=== PATIENT | female | born 1980 | race Caucasian/White ===

== ENCOUNTER → 2016-05-21 | Outpatient (CLI) | payer MEDICARE, MEDICAID ==
[~2016-05-21] MED LIST: AZIT250T5 PO; CODE118S2 PO; NAPR500T3 PO; OXCA300T; RANI150T11
--- NOTE | 2016-05-21 20:18 | Diagnostic Imaging Report ---
Bilateral diagnostic mammogram. The current study was also evaluated with a Computer Aided Detection (CAD) system. INDICATION: Lump in the upper aspect of the right breast near the axilla. COMPARISON: No prior studies are available for comparison. FINDINGS: The breasts are composed of heterogeneously dense parenchyma which may decrease mammographic sensitivity. There are no definite masses, architectural distortion, or suspicious cluster of calcifications. IMPRESSION: Dense breasts with no definite focal mass. Ultrasound evaluation pending. ACR BI-RADS Category 0: Incomplete. (Needs additional imaging evaluation). Result letter will be mailed to the patient. Note: At least 10% of breast cancer is not imaged by mammography. Dictated by: Dictated on workstation # [id number]
--- NOTE | 2016-05-21 20:21 | Diagnostic Imaging Report ---
Bilateral breast ultrasound. INDICATION: Right axillary lump dense breasts. FINDINGS: The four-quadrant and retroareolar region of each breast were scanned with no underlying abnormality seen. There is however a mildly enlarged lymph node in the right axilla which could correlate with the palpable lump that has very thin cortex and predominantly fatty hilum suggestive of a benign etiology. It measures 2 x 0.6 x 1.2 cm. IMPRESSION: 2 cm lymph node in the right axilla probably benign. No suspicious lesion seen. Clinical follow-up recommended. ACR BI-RADS Category 2: Benign findings. Dictated by: Dictated on workstation # [id number]
== END ==
LOC: RAD 08:53
PROVIDERS: ATTEND Nurse Practitioner Family
DX: N63 Unspecified lump in breast (principal); N64.4 Mastodynia; M25.50 Pain in unspecified joint
CPT/HCPCS: 77066

== ENCOUNTER 2016-07-18 08:51 | Emergency (ER) | payer MEDICARE, MEDICAID ==
[~2016-07-18] VITALS: Ht 167.6 cm; Wt 58.1 kg
[~2016-07-18 08:51] MED LIST changes: -NAPR500T3 PO
--- NOTE | 2016-07-18 09:05 | ED Lower Extremity ---
General Chief Complaint: Lower Extremity Stated Complaint: RIGHT FOOT/ANKLE INJURY Source: patient History of Present Illness Time seen by provider: 08:56 Initial Comments PT ARRIVES VIA POV STATES SHE WAS AT THE CAR WASH AND MISSED A STEP AND FELL OUT OF HER VAN, TWISTING HER RIGHT FOOT AND ANKLE OCCURRED IMMEDIATELY PRIOR TO ARRIVAL AND CAME STRAIGHT HERE NO PARESTHESIAS OR MOTOR DEFICITS NO PAIN OR INJURY ANYWHERE ELSE NO PRIOR INJURY TO THIS FOOT OR ANKLE PCP: GERTRUDE, ABILIO MOORE Allergies and Home Medications Allergies Coded Allergies: morphine (Unverified Allergy, Unknown, 03/09/16) Home Medications Naproxen 500 Mg Tablet, 500 MG PO BID, #20 Prescribed by: HERO ERWIN on 07/18/16 0944 Constitutional: no symptoms reported Musculoskeletal: see HPI Skin: no symptoms reported Psychiatric/Neurological: No Symptoms Reported Past Pzrzlad-Ojyxbu-Elucoh Hx Patient Social History Alcohol Use: Denies Use Recreational Drug Use: No Smoking Status: Never a Smoker Recent Foreign Travel: No Contact w/Someone Who Travel: No Recent Hopitalizations: No Immunizations Up To Date Tetanus Booster (TDap): More than 5yrs Date of Influenza Vaccine: Jan 07, 2016 Seasonal Allergies Seasonal Allergies: No Surgeries HX Surgeries: Yes Surgeries: Appendectomy, Section, Hysterectomy, Tubal Ligation Respiratory Hx Respiratory Disorders: Yes Respiratory Disorders: Pneumonia Cardiovascular Hx Cardiac Disorders: No Neurological Hx Neurological Disorders: No Reproductive System Hx Reproductive Disorders: 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 Genitourinary Hx Genitourinary Disorders: No Gastrointestinal Hx Gastrointestinal Disorders: No Musculoskeletal Hx Musculoskeletal Disorders: No Endocrine Hx Endocrine Disorders: Yes (STATES THEY ARE TESTING FOR LUPUS) HEENT HX ENT Disorders: No Cancer Hx Cancer: No Psychosocial Hx Psychiatric Problems: No Integumentary HX Skin/Integumentary Disorder: No Blood Transfusions Hx Blood Disorders: No Physical Exam Vital Signs Vital Sign - Last 12Hours 07/18/16 08:55 Temp 98.6 Pulse 75 Resp 22 B/P (MAP) 122/68 Pulse Ox 98 Capillary Refill : General Appearance: WD/WN Ankles: left ankle normal inspection, right ankle bone tenderness, right ankle limited range of motion, right ankle pain, right ankle soft tissue tenderness, right ankle other (NO SWELLING OR BRUISING) Feet: left foot normal inspection, right foot bone tenderness, right foot limited range of motion, right foot pain, right foot soft tissue tenderness, right foot other (LATERAL ASPECT OF FOOT. 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, no motor/sensory deficits, alert, oriented x 3, other (ANXIOUS) Skin: normal color, warm/dry Splinting and Joint Reduction : José wrap: Yes Splints: Air Stirrup [place] Progress/Results/Core Measures Results/Orders My Orders Orders - HERO ERWIN DO Foot, Right, 3 View (07/18/16 09:00) Ankle, Right, 3 Views (07/18/16 09:00) José Bandage (07/18/16 09:44) Gel Ankle Brace (07/18/16 09:44) Vital Signs/I&O Vital Sign - Last 12Hours 07/18/16 08:55 Temp 98.6 Pulse 75 Resp 22 B/P (MAP) 122/68 Pulse Ox 98 Diagnostic Imaging Comments XRAYS RIGHT FOOT AND ANKLE--NO ACUTE PROCESS, PER RADIOLOGIST REPORT @ 0940 Departure Impression Impression: Primary Impression: RIGHT FOOT AND ANKLE SPRAIN Disposition: 01 HOME, SELF-CARE Condition: Stable Departure-Patient Inst. Referrals: [facility] (PCP[facility]Family) Primary Care Physician Patient Instructions: AIRCAST, Ankle Sprain (DC) Add. Discharge Instructions: JOSÉ WRAP AND SPLINT NEEDED FOR COMFORT ICE TO AREA AT 20 MINUTE INTERVALS ELEVATE FOOT MUCH POSSIBLE ACTIVITIES TOLERATED FOLLOW UP WITH [facility] IN 1 WEEK IF NO BETTER All discharge instructions reviewed with patient and/or family. Voiced understanding. Scripts Naproxen (Naproxen) 500 Mg Tablet 500 MG PO BID, #20 TAB Prov: HERO ERWIN DO 07/18/16 Images Extremities-Lower 1 - Tenderness 2 - Tenderness HERO ERWIN DO Jul 18, 2016 09:05
--- NOTE | 2016-07-18 09:29 | Diagnostic Imaging Report ---
INDICATION: Right ankle injury. FINDINGS: Three views of the right ankle show no fracture, dislocation, or other acute abnormalities. IMPRESSION: Negative right ankle. Dictated by: Dictated on workstation # [id number]
--- NOTE | 2016-07-18 09:29 | Diagnostic Imaging Report ---
INDICATION: Right foot pain 3 views of the right foot show no fracture, dislocation or other acute abnormalities. IMPRESSION: Negative right foot. Dictated by: Dictated on workstation # [id number]
[2016-07-18] MEDS ORDERED: NAPR500T3 PO (09:44)
[2016-07-18 10:01] VITALS: BP 116/79
== END 2016-07-18 10:01 | disposition home or self-care (01) ==
LOC: EDUNIT# 08:51 → ER 08:53
DX: S93.401A Sprain of unspecified ligament of right ankle, initial encounter (principal); X50.9XXA Other and unspecified overexertion or strenuous movements or postures, initial encounter; Y92.89 Other specified places as the place of occurrence of the external cause; Y99.8 Other external cause status
CPT/HCPCS: 73610; 73630; 99283

== ENCOUNTER 2018-06-12 19:56 | Emergency (ER) | payer MEDICAID, MEDICARE ==
[~2018-06-12] VITALS: Ht 167.6 cm; Wt 56.7 kg
[~2018-06-12 19:56] MED LIST changes: +AZIT250T12 PO; -AZIT250T5 PO; -CODE118S2 PO; +CODE118S4 PO; +NAPR-915 PO; -OXCA300T; +OXCA300T18
--- OUTSIDE RECORDS SUMMARY | 2018-06-12 20:00 | XMS REPORT ---
Author Author JACOB Carter [facility] Address [address] [place] [address] Care Team Providers Care Education Administrative Assistant Name Role Phone JACOB Carter Unavailable PROBLEMS Type Condition ICD9-CM Code TRZ33-YH Code Onset Dates Condition Status SNOMED Code Problem Abnormal ultrasound of breast R92.8 Active 30323288580828842 Problem Pulmonary infiltrates R91.8 Active 868288816 Problem Vitamin D deficiency E55.9 Active 08118600 Problem Positive NIC (antinuclear antibody) R76.8 Active 536977528 Problem Fatigue, unspecified type R53.83 Active 72023485 ALLERGIES Substance Reaction Event Type Date Status Strattera "throat swell" Drug Allergy Jun, Active Morphine Sulfate anaphylaxis Drug Allergy Jun, Active ENCOUNTERS Encounter Location Date Diagnosis [facility] [address] [id number] Jul, Dental examination Z01.20 and 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 [facility] [id number] [place] [phone] Jul, [facility] [id number] [place] [address] Jun, [facility] [address] [facility] [id number] [id number] Jun, [id number] [place] [id number] Jun, Dental examination Z01.20 [facility] [id number] [place] [address] 11 Dec, 2016 Aphthous ulcer of mouth K12.0 [facility] [address] [address] Oct, Headache, unspecified headache type R51 [place] [id number] [place] [address] 89[address] Jun, Vitamin D deficiency E55.9 ; Positive NIC (antinuclear antibody) R76.8 and Abnormal ultrasound of breast R92.8 [place] [address] [address] May, Breast nodule N63 [place] [address] [address] May, [place] [address] [address] May, [place] [id number] [place] [address] May, General medical exam Z00.00 ; Breast pain, right N64.4 ; Breast nodule N63 ; Pain in right knee M25.561 ; Pain in left knee M25.562 and Arthralgia of multiple sites, bilateral M25.50 [place] [address] [address] Apr, Mood changes F39 [place] [id number] [place] [address]- 1333 Apr, [place] [id number] [place] [address]- 2779 Apr, Generalized anxiety disorder F41.1 ; Mood changes F39 and Other fpc (current) drug therapy Z79.899 [place] [id number] [place] [address]68[address] Mar, Dyspepsia R10.13 [place] [id number] [place] [address] 59[address] Feb, [place] [id number] [place] [address] 3844 Jan, Pulmonary infiltrates R91.8 and Positive NIC (antinuclear antibody) R76.8 [facility] [address] [address] Jan, [facility] [address] [address] 11 Jan, 2016 Mood disorder F39 [place] [address] [place] [address]157- 5[address] 27 Dec, 2015 Fatigue, unspecified type R53.83 [facility] [address] [address] 18 Dec, 2015 Acute non-recurrent frontal sinusitis J01.10 [place] [address] [place] [address]- 3691 14 Dec, 2015 Generalized anxiety disorder F41.1 and Unspecified mood [ affective] disorder F39 IMMUNIZATIONS No Known Immunizations SOCIAL HISTORY Never Assessed REASON FOR VISIT jefry PLAN OF CARE Activity Details Follow Up prn Reason:TE #20 VITAL SIGNS Height 66 in 2017-06-11 Blood pressure systolic 120 mmHg 2017-06-11 Blood pressure diastolic 80 mmHg 2017-06-11 MEDICATIONS Medication Instructions Dosage Frequency Start Date End Date Duration Status Vitamin D (Ergocalciferol) 60034 UNIT Orally once a week for 12 weeks and then start 3000iu daily 1 capsule May, Not-Taking Motrin IB 800 Orally every 6 hrs 1 tablet as needed 6h 5 days Active Amoxicillin 500 mg Orally 3 times a day 1 capsule 8h 10 day(s) Active Zantac 150 MG Orally twice a day 1 12h Mar, Not-Taking Oxcarbazepine 300 MG Orally daily 3 caps at HS 24h Jan, 30 days Not-Taking RESULTS No Results PROCEDURES Procedure Date Ordered Result Body Site COMP ORAL EVALUATION - NEW/EST PT June 11, 2017 INTRAORL-PERIAPICAL 1 FILM 91946 June 11, 2017 INTRAORL-PERIAPICAL EA ADD FILM June 11, 2017 INTRAORL-PERIAPICAL EA ADD FILM June 11, 2017 BITEWINGS - TWO FILMS June 11, 2017 INSTRUCTIONS MEDICATIONS ADMINISTERED No Known Medications MEDICAL (GENERAL) HISTORY Type Description Date Medical History COPD Medical History Bipolar Disorder Medical History Pneumonia Surgical History 2006 Surgical History tubal ligation 2006 Surgical History appendectomy 1992 Surgical History partial hysterectomy - due to bleeding 2006
--- OUTSIDE RECORDS SUMMARY | 2018-06-12 20:00 | XMS REPORT ---
Author Author JACOB MALDONADO [facility] Address [address] [place] [address] Care Team Providers Care Industrial Engineering Manager Name Role Phone JACOB MALDONADO Unavailable PROBLEMS Type Condition ICD9-CM Code DLO71-XO Code Onset Dates Condition Status SNOMED Code Problem Abnormal ultrasound of breast R92.8 Active 48540616988940824 Problem Pulmonary infiltrates R91.8 Active 919722166 Problem Vitamin D deficiency E55.9 Active 27270609 Problem Positive NIC (antinuclear antibody) R76.8 Active 274794863 Problem Fatigue, unspecified type R53.83 Active 07034654 ALLERGIES No Information ENCOUNTERS Encounter Location Date Diagnosis [facility] [id number] [place] [id number] Jul, Dental examination Z01.20 and 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 [facility] [id number] [place] [phone] Jul, [facility] [id number] [place] [address] 64448- [address]646 Jun, [facility] [address] [place] [address] [id number] [id number] Jun, [facility] [address] [facility] [id number] [place] [id number] Jun, Dental examination Z01.20 [facility] [address] [address] 11 Dec, 2016 Aphthous ulcer of mouth K12.0 [facility] [id number] [place] [address] 72296- [address] 13 Oct, 2016 Headache, unspecified headache type R51 [facility] [address] [address] Jun, Vitamin D deficiency E55.9 ; Positive NIC (antinuclear antibody) R76.8 and Abnormal ultrasound of breast R92.8 [place] [address] [address] May, Breast nodule N63 [place] [address] [address] May, [place] [address] [address] May, [place] [address] [address] May, General medical exam Z00.00 ; Breast pain, right N64.4 ; Breast nodule N63 ; Pain in right knee M25.561 ; Pain in left knee M25.562 and Arthralgia of multiple sites, bilateral M25.50 [place] [address] [address] Apr, Mood changes F39 [address] [address] Apr, [place] [address] [address] Apr, Generalized anxiety disorder F41.1 ; Mood changes F39 and Other shelter (current) drug therapy Z79.899 [place] [address] [address] Mar, Dyspepsia R10.[address] [address] Feb, [place] [address] [address] 14 Jan, 2016 Pulmonary infiltrates R91.8 and Positive NIC (antinuclear antibody) R76.8 [place] [address] [address] 13 Jan, 2016 [facility] [address] [id number] [address] 11 Jan, 2016 Mood disorder F39 [facility] [address] [id number] [address] 27 Dec, 2015 Fatigue, unspecified type R53.83 [facility] [address] [id number] [address] 18 Dec, 2015 Acute non-recurrent frontal sinusitis J01.10 [facility] [id number], [place] [address] 14 Dec, 2015 Generalized anxiety disorder F41.1 and Unspecified mood [ affective] disorder F39 IMMUNIZATIONS No Known Immunizations SOCIAL HISTORY Never Assessed REASON FOR VISIT requests return call PLAN OF CARE VITAL SIGNS MEDICATIONS No Known Medications RESULTS No Results PROCEDURES No Known procedures INSTRUCTIONS MEDICATIONS ADMINISTERED No Known Medications MEDICAL (GENERAL) HISTORY Type Description Date Medical History COPD Medical History Bipolar Disorder Medical History Pneumonia Surgical History 2006 Surgical History tubal ligation 2006 Surgical History appendectomy 1992 Surgical History partial hysterectomy - due to bleeding 2006
--- OUTSIDE RECORDS SUMMARY | 2018-06-12 20:00 | XMS REPORT ---
Author Author marceJUSTYNA Shah Organization [facility] Address [address] [place] [address] Care Team Providers Care Electrical Panel Builder Name Role Phone JUSTYNA Beverly Unavailable PROBLEMS Type Condition ICD9-CM Code PKS03-WA Code Onset Dates Condition Status SNOMED Code Problem Abnormal ultrasound of breast R92.8 Active 95318112200166478 Problem Pulmonary infiltrates R91.8 Active 807502242 Problem Vitamin D deficiency E55.9 Active 29840058 Problem Positive NIC (antinuclear antibody) R76.8 Active 471653024 Problem Fatigue, unspecified type R53.83 Active 44556307 ALLERGIES Substance Reaction Event Type Date Status Strattera "throat swell" Drug Allergy Jul, Active Morphine Sulfate anaphylaxis Drug Allergy Jul, Active ENCOUNTERS Encounter Location Date Diagnosis 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 [facility] [id number] [place] [address] Jul, [facility] [id number] [place] [address]13- [address] Jun, [facility] [address] [id number] [id number] Jun, [facility] [address] [id number] [id number] Jun, Dental examination Z01.20 [facility] [id number] [place] [address]3917- 77[address] 11 Dec, 2016 Aphthous ulcer of mouth K12.0 [facility] [address] [address] Oct, Headache, unspecified headache type R51 [place] [id number] [place] [address] 85976- 1777 Jun, Vitamin D deficiency E55.9 ; Positive NIC (antinuclear antibody) R76.8 and Abnormal ultrasound of breast R92.8 [place] [address] [address]- [address] May, Breast nodule N63 [place] [address] [address]- [address] May, [place] [address] [address]- [address] May, [place] [address] [address]- [address] May, General medical exam Z00.00 ; Breast pain, right N64.4 ; Breast nodule N63 ; Pain in right knee M25.561 ; Pain in left knee M25.562 and Arthralgia of multiple sites, bilateral M25.50 [place] [address] [place] [address]35- 4063 Apr, Mood changes F39 [place] [address] [address]- [address] Apr, [place] [address] [place] [address]51- [address] Apr, Generalized anxiety disorder F41.1 ; Mood changes F39 and Other fpc (current) drug therapy Z79.899 [place] [id number] [place] [address]71- 5[address] Mar, Dyspepsia R10.13 [place] [address] [address]- [address] Feb, [place] [id number] [place] [address]- [address] Jan, Pulmonary infiltrates R91.8 and Positive NIC (antinuclear antibody) R76.8 [facility] [address] [address] 13 Jan, 2016 [facility] [address] [address] 11 Jan, 2016 Mood disorder F39 [facility] [address] [address] 27 Dec, 2015 Fatigue, unspecified type R53.83 [facility] [address] [address] 18 Dec, 2015 Acute non-recurrent frontal sinusitis J01.10 [facility] [address] [address] 14 Dec, 2015 Generalized anxiety disorder F41.1 and Unspecified mood [ affective] disorder F39 IMMUNIZATIONS No Known Immunizations SOCIAL HISTORY Never Assessed REASON FOR VISIT tabatha/abscess PLAN OF CARE Activity Details Follow Up prn Reason:as needed VITAL SIGNS Height 66 in 2017-07-22 Blood pressure systolic 115 mmHg 2017-07-22 Blood pressure diastolic 71 mmHg 2017-07-22 MEDICATIONS Medication Instructions Dosage Frequency Start Date End Date Duration Status Vitamin D (Ergocalciferol) 86234 UNIT Orally once a week for 12 weeks and then start 3000iu daily 1 capsule May, Not-Taking Motrin IB 800 Orally every 6 hrs 1 tablet as needed 6h 5 days Not- Taking Oxcarbazepine 300 MG Orally daily 3 caps at HS 24h Jan, 30 days Not-Taking Zantac 150 MG Orally twice a day 1 12h Mar, Not-Taking Amoxicillin 500 mg Orally 3 times a day 1 capsule 8h 10 day(s) Active RESULTS No Results PROCEDURES Procedure Date Ordered Result Body Site LTD ORAL EVALUATION - PROBLEM FOCUS July 22, 2017 INTRAORL-PERIAPICAL 1 FILM 63971 July 22, 2017 EXTRAC ERUPTED TOOTH/EXPOSED ROOT July 22, 2017 INSTRUCTIONS MEDICATIONS ADMINISTERED No Known Medications MEDICAL (GENERAL) HISTORY Type Description Date Medical History COPD Medical History Bipolar Disorder Medical History Pneumonia Surgical History 2005 Surgical History tubal ligation 2006 Surgical History appendectomy 1992 Surgical History partial hysterectomy - due to bleeding 2006
--- OUTSIDE RECORDS SUMMARY | 2018-06-12 20:00 | XMS REPORT ---
Author Author AYANNA MORELOS [facility] Address [address] [place] [address] Care Team Providers Care Pr Specialist Name Role Phone AYANNA MORELOS Unavailable PROBLEMS Type Condition ICD9-CM Code DCM13-YY Code Onset Dates Condition Status SNOMED Code Problem Abnormal ultrasound of breast R92.8 Active 22772615545976422 Problem Pulmonary infiltrates R91.8 Active 849454066 Problem Vitamin D deficiency E55.9 Active 05878732 Problem Positive NIC (antinuclear antibody) R76.8 Active 728982873 Problem Fatigue, unspecified type R53.83 Active 96540904 ALLERGIES No Information ENCOUNTERS Encounter Location Date Diagnosis [facility] [id number] [place] [id number] Jul, Dental examination Z01.20 and 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 [id number] [place] [address] Jul, [facility] [id number] [place] [address] Jun, [facility] [address] [id number] [place] [id number] Jun, [facility] [address] [id number] [place] [id number] Jun, Dental examination Z01.20 [facility] [address] [address] 11 Dec, 2016 Aphthous ulcer of mouth K12.0 [facility] [id number] [place] [address] 13 Oct, 2016 Headache, unspecified headache type R51 [facility] [address] [place] [address] Jun, Vitamin D deficiency E55.9 ; Positive NIC (antinuclear antibody) R76.8 and Abnormal ultrasound of breast R92.8 [address] [address] May, Breast nodule N63 [address] [address] May, [place] [address] [address] May, [address] [address] May, General medical exam Z00.00 ; Breast pain, right N64.4 ; Breast nodule N63 ; Pain in right knee M25.561 ; Pain in left knee M25.562 and Arthralgia of multiple sites, bilateral M25.[address] [address] Apr, Mood changes F39 [address] [address] Apr, [address] [address] Apr, Generalized anxiety disorder F41.1 ; Mood changes F39 and Other keno terminal operator (current) drug therapy Z79.899 [address] [address] [address] Mar, Dyspepsia R10.[address] [address] Feb, [address] [address] 14 Jan, 2016 Pulmonary infiltrates R91.8 and Positive NIC (antinuclear antibody) R76.[address] [address] 13 Jan, 2016 [facility] [address] [facility] [id number] [address] 11 Jan, 2016 Mood disorder F39 [facility] [address] [id number] [address] 27 Dec, 2015 Fatigue, unspecified type R53.[address] [facility] WALK IN [facility] [address] [id number], [place] [address] 18 Dec, 2015 Acute non-recurrent frontal sinusitis J01.10 [facility] [address] [facility] [id number], [place] [address] 14 Dec, 2015 Generalized anxiety disorder F41.1 and Unspecified mood [ affective] disorder F39 IMMUNIZATIONS No Known Immunizations SOCIAL HISTORY Never Assessed REASON FOR VISIT PLAN OF CARE VITAL SIGNS MEDICATIONS No [...]
--- OUTSIDE RECORDS SUMMARY | 2018-06-12 20:00 | XMS REPORT ---
Author Author DEAN MOORE [facility] Address [address] [place] [address] Care Team Providers Care Field Examiner Name Role Phone DEAN MOORE Unavailable PROBLEMS Type Condition ICD9-CM Code LWG38-QV Code Onset Dates Condition Status SNOMED Code Problem Abnormal ultrasound of breast R92.8 Active 96140639014239825 Problem Pulmonary infiltrates R91.8 Active 207833301 Problem Vitamin D deficiency E55.9 Active 10251364 Problem Positive NIC (antinuclear antibody) R76.8 Active 443835048 Problem Fatigue, unspecified type R53.83 Active 79872698 ALLERGIES No Information ENCOUNTERS Encounter Location Date Diagnosis [facility] [id number] [place] [id number] Jul, Dental examination Z01.20 and 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 [facility] [id number] [place] [address] Jul, [facility] [id number] [place] [address] Jun, [facility] [address] [id number] [place] [id number] Jun, [facility] [address] [id number] [place] [id number] Jun, Dental examination Z01.20 [facility] [address] [address] 11 Dec, 2016 Aphthous ulcer of mouth K12.0 [facility] [id number] [place] [address] 13 Oct, 2016 Headache, unspecified headache type R51 [facility] [address] [place] [address] Jun, Vitamin D deficiency E55.9 ; Positive NIC (antinuclear antibody) R76.8 and Abnormal ultrasound of breast R92.8 [address] [address] [address] May, Breast nodule N63 [address] [address] May, [address] [address] May, [address] [address] May, General medical exam Z00.00 ; Breast pain, right N64.4 ; Breast nodule N63 ; Pain in right knee M25.561 ; Pain in left knee M25.562 and Arthralgia of multiple sites, bilateral M25.[address] [address] Apr, Mood changes F39 [address] [address] Apr, [address] [address] Apr, Generalized anxiety disorder F41.1 ; Mood changes F39 and Other intermediate project manager (current) drug therapy Z79.899 [address] [address] Mar, Dyspepsia R10.[address] [address] Feb, [address] [address] 14 Jan, 2016 Pulmonary infiltrates R91.8 and Positive NIC (antinuclear antibody) R76.[address] [address] 13 Jan, 2016 [facility] [address] [facility] [id number] [place] [address] 11 Jan, 2016 Mood disorder F39 [facility] [address] [id number] [address] 27 Dec, 2015 Fatigue, unspecified type R53.83 [facility] WALK IN [facility] [address] [facility] [id number] [place] [address] 18 Dec, 2015 Acute non-recurrent frontal sinusitis J01.10 [facility] [address] [facility] [id number] [place] [address] 14 Dec, 2015 Generalized anxiety disorder F41.1 and Unspecified mood [ affective] disorder F39 IMMUNIZATIONS No Known Immunizations SOCIAL HISTORY Never Assessed REASON FOR VISIT Requests return call PLAN OF CARE VITAL SIGNS [...]
--- OUTSIDE RECORDS SUMMARY | 2018-06-12 20:01 | XMS REPORT ---
Author Author DEAN MOORE [facility] Address [address] [place] [address] Care Team Providers Care Equipment Application Specialist Name Role Phone DEAN MOORE Unavailable PROBLEMS Type Condition ICD9-CM Code UIV82-FB Code Onset Dates Condition Status SNOMED Code Problem Abnormal ultrasound of breast R92.8 Active 52468604849136609 Problem Pulmonary infiltrates R91.8 Active 812188515 Problem Vitamin D deficiency E55.9 Active 43310899 Problem Positive NIC (antinuclear antibody) R76.8 Active 327294145 Problem Fatigue, unspecified type R53.83 Active 53034761 ALLERGIES No Information SOCIAL HISTORY Never Assessed PLAN OF CARE VITAL SIGNS MEDICATIONS Medication Instructions Dosage Frequency Start Date End Date Duration Status Vitamin D (Ergocalciferol) 20665 UNIT Orally once a week for 12 weeks and then start 3000iu daily 1 capsule 13 May, 2016 Active RESULTS No Results PROCEDURES No Known procedures IMMUNIZATIONS No Known Immunizations MEDICAL (GENERAL) HISTORY Type Description Date Medical History Lupus- no actual dx Medical History COPD Medical History Bipolar Disorder Surgical History 2005 Surgical History tubal ligation 2006 Surgical History appendectomy 1992 Surgical History partial hysterectomy - due to bleeding 2007 Hospitalization History surgeries
--- OUTSIDE RECORDS SUMMARY | 2018-06-12 20:01 | XMS REPORT ---
Author Author Michelle RON [facility] Address [address] [place] [address] Care Team Providers Care Triage Rn Name Role Phone marceJUANTIO GibbsY Unavailable PROBLEMS Type Condition ICD9-CM Code JIL13-WP Code Onset Dates Condition Status SNOMED Code Problem Abnormal ultrasound of breast R92.8 Active 57130733398434136 Problem Pulmonary infiltrates R91.8 Active 097329819 Problem Vitamin D deficiency E55.9 Active 58688110 Problem Positive NIC (antinuclear antibody) R76.8 Active 826663241 Problem Fatigue, unspecified type R53.83 Active 16464252 ALLERGIES Substance Reaction Event Type Date Status Strattera "throat swell" Drug Allergy Apr, Active Morphine Sulfate anaphylaxis Drug Allergy Apr, Active SOCIAL HISTORY No smoking Hx information available PLAN OF CARE Activity Details Follow Up 2 Months Reason: VITAL SIGNS Height 66 in 2016-04-19 Weight 129.0 lbs 2016-04-19 Heart Rate 92 bpm 2016-04-19 Respiratory Rate 18 2016-04-19 BMI 20.82 kg/m2 2016-04-19 Blood pressure systolic 100 mmHg 2016-04-19 Blood pressure diastolic 71 mmHg 2016-04-19 MEDICATIONS Medication Instructions Dosage Frequency Start Date End Date Duration Status Zantac 150 MG Orally twice a day 1 12h 02 Mar, 2016 Active Oxcarbazepine 300 MG Orally daily 3 caps at HS 24h Jan, Active RESULTS No Results PROCEDURES Procedure Date Ordered Related Diagnosis Body Site [facility] VISIT ESTABLISHED PATIENT Apr 19, 2016 Office Visit, Est Pt., Level 3 Apr 19, 2016 IMMUNIZATIONS No Known Immunizations
--- OUTSIDE RECORDS SUMMARY | 2018-06-12 20:01 | XMS REPORT ---
Author Author DEAN MOORE [facility] Address [address] [place] [address] Care Team Providers Care Word Processing Supervisor Name Role Phone DEAN MOORE Unavailable PROBLEMS Type Condition ICD9-CM Code USE30-XS Code Onset Dates Condition Status SNOMED Code Problem Abnormal ultrasound of breast R92.8 Active 01404377725495426 Problem Pulmonary infiltrates R91.8 Active 964875350 Problem Vitamin D deficiency E55.9 Active 07281901 Problem Positive NIC (antinuclear antibody) R76.8 Active 005247142 Problem Fatigue, unspecified type R53.83 Active 51833393 ALLERGIES Substance Reaction Event Type Date Status Strattera "throat swell" Drug Allergy May, Active Morphine Sulfate anaphylaxis Drug Allergy May, Active SOCIAL HISTORY No smoking Hx information available PLAN OF CARE Activity Details Follow Up 3-4 weeks Reason:arthralgia VITAL SIGNS Height 66 in 2016-05-10 Weight 128.8 lbs 2016-05-10 Temperature 98.3 degrees Fahrenheit 2016-05-10 Heart Rate 76 bpm 2016-05-10 Respiratory Rate 18 2016-05-10 BMI 20.79 kg/m2 2016-05-10 Blood pressure systolic 110 mmHg 2016-05-10 Blood pressure diastolic 68 mmHg 2016-05-10 MEDICATIONS Medication Instructions Dosage Frequency Start Date End Date Duration Status Oxcarbazepine 300 MG Orally daily 3 caps at HS 24h Jan, 30 days Active RESULTS Name Result Date Reference Range TSH 2016-05-10 TSH 0.607 0.450-4.500 CBC 2016-05-10 WBC 5.2 3.4-10.8 RBC 4.50 3.77-5.28 Hemoglobin 13.1 11.1-15.9 Hematocrit 37.3 34.0-46.6 MCV 83 79-97 MCH 29.1 26.6-33.0 MCHC 35.1 31.5-35.7 RDW 13.1 12.3-15.4 Platelets 236 150-379 Neutrophils 54 Lymphs 38 Monocytes 7 Eos 1 Basos 0 Neutrophils (Absolute) 2.8 1.4-7.0 Lymphs (Absolute) 2.0 0.7-3.1 Monocytes(Absolute) 0.4 0.1-0.9 Eos (Absolute) 0.0 0.0-0.4 Baso (Absolute) 0.0 0.0-0.2 Immature Granulocytes 0 Immature Grans (Abs) 0.0 0.0-0.1 ESR/SED RATE 2016-05-10 Sedimentation Rate-Westergren 2 0-32 RA (RHEUMATOID) FACTOR 2016-05-10 RA Latex Turbid. <10.0 0.0-13.9 CRP 2016-05-10 C-Reactive Protein, Quant 0.2 0.0-4.9 VITAMIN D, 25-H 2016-05-10 Vitamin D, 25-Hydroxy 13.1 30.0-100.0 NIC 2016-05-10 Antinuclear Antibodies, IFA Positive Homogeneous Pattern Nucleolar Pattern Speckled Pattern 1:160 Centromere Pattern Spindle Apparatus Pattern Nuclear Membrane Pattern Midbody Pattern Nuclear Dot Pattern PCNA Pattern Centriole Pattern Note: LIPID PANEL 2016-05-10 Cholesterol, Total 195 100-199 Triglycerides 48 0-149 HDL Cholesterol 74 >39 VLDL Cholesterol Aldair 10 5-40 LDL Cholesterol Calc 111 0-99 CMP 2016-05-10 Glucose, Serum 87 65-99 BUN 8 6-20 Creatinine, Serum 0.72 0.57-1.00 eGFR If NonAfricn Am 108 >59 eGFR If Africn Am 125 >59 BUN/Creatinine Ratio 11 8-20 Sodium, Serum 140 134-144 Potassium, Serum 4.0 3.5-5.2 Chloride, Serum 102 96-106 Carbon Dioxide, Total 21 18-29 Calcium, Serum 9.2 8.7-10.2 Protein, Total, Serum 7.3 6.0-8.5 Albumin, Serum 4.6 3.5-5.5 Globulin, Total 2.7 1.5-4.5 A/G Ratio 1.7 1.1-2.5 Bilirubin, Total 0.4 0.0-1.2 Alkaline Phosphatase, S 79 39-117 AST (SGOT) 21 0-40 ALT (SGPT) 13 0-32 Xray : Knee, Left 1-2 views (IN HOUSE) 2016-05-10 Xray : Knee, Right 1-2 views (IN HOUSE) 2016-05-10 Mammogram Dx, Bilateral 2016-05-21 PROCEDURES Procedure Date Ordered Related Diagnosis Body Site [facility] May 10, 2016 X-RAY EXAM OF KNEE, 1 OR 2 May 10, 2016 Office Visit, Est Pt., Level 5 May 10, 2016 [facility] VISIT ESTABLISHED PATIENT May 10, 2016 VENIPUNCT, ROUTINE* May 10, 2016 IMMUNIZATIONS No Known Immunizations
--- OUTSIDE RECORDS SUMMARY | 2018-06-12 20:01 | XMS REPORT ---
Author Author DEAN MOORE [facility] Address [address] [place] [address] Care Team Providers Care Eyelet Operator Name Role Phone DEAN MOORE Unavailable PROBLEMS Type Condition ICD9-CM Code WFM73-BR Code Onset Dates Condition Status SNOMED Code Problem Abnormal ultrasound of breast R92.8 Active 68333446586653179 Problem Pulmonary infiltrates R91.8 Active 278551033 Problem Vitamin D deficiency E55.9 Active 25078913 Problem Positive NIC (antinuclear antibody) R76.8 Active 626409758 Problem Fatigue, unspecified type R53.83 Active 94805278 ALLERGIES Substance Reaction Event Type Date Status Strattera "throat swell" Drug Allergy Oct, Active Morphine Sulfate anaphylaxis Drug Allergy Oct, Active ENCOUNTERS Encounter Location Date Diagnosis [facility] [id number] [place] [address] Jul, [facility] [address] [id number] [place] [id number] Jul, [facility] [id number] [place] [address]683- [address] Jun, [facility] [address] [id number] [place] [id number] Jun, [facility] [address] [id number] [place] [id number] Jun, Dental examination Z01.20 [facility] [id number] [place] [address]- [address] Dec, Aphthous ulcer of mouth K12.0 [facility] [id number] [place] [address]- [address] Oct, Headache, unspecified headache type R51 [place] [address] [place] [address]- [address] Jun, Vitamin D deficiency E55.9 ; Positive NIC (antinuclear antibody) R76.8 and Abnormal ultrasound of breast R92.8 [place] [id number] [place] [address]- [address] May, Breast nodule N63 [place] [address] [address] May, [place] [id number] [place] [address]258- [address] May, [place] [place] [id number] [place] [address]- [address] 02 May, 2016 General medical exam Z00.00 ; Breast pain, right N64.4 ; Breast nodule N63 ; Pain in right knee M25.561 ; Pain in left knee M25.562 and Arthralgia of multiple sites, bilateral M25.50 [place] [id number] [place] [address]- [address] Apr, Mood changes F39 [id number] [place] [address]- [address] Apr, [id number] [place] [address] Apr, Generalized anxiety disorder F41.1 ; Mood changes F39 and 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 Z79.899 [place] [id number] [place] [address]- [address] 02 Mar, 2016 Dyspepsia R10.13 [address] [place] [address] [address] 17 Feb, 2016 [place] [id number] [place] [address]99- [address] 14 Jan, 2016 Pulmonary infiltrates R91.8 and Positive NIC (antinuclear antibody) R76.8 [place] [address] [facility] [id number] [address] 13 Jan, 2016 [facility] [address] [id number], [place] [address] 11 Jan, 2016 Mood disorder F39 [facility] [address] [id number], [place] [address] 27 Dec, 2015 Fatigue, unspecified type R53.83 [facility] WALK IN [facility] [address]65100[place], [place] [address] 18 Dec, 2015 Acute non-recurrent frontal sinusitis J01.10 [facility] [address]65[address], [place] [address] 14 Dec, 2015 Generalized anxiety disorder F41.1 and Unspecified mood [ affective] disorder F39 IMMUNIZATIONS Vaccine Route Administration Date Status TORADOL (IM) 60 MG/2ML (UP TO 15 MG) IM Intramuscular October 18, 2016 Administered SOCIAL HISTORY Never Assessed REASON FOR VISIT Migraine-states last she knew she may have an autoimmune disorder, states that today thought she is having pains about every ten minutes and it is excruciating and will go away and return-[facility]rrpriyaAmado PLAN OF CARE Activity Details Follow Up if not improving and keep consult appt Reason: VITAL SIGNS Height 66 in 2016-10-18 Weight 121.0 lbs 2016-10-18 Temperature 97.4 degrees Fahrenheit 2016-10-18 Heart Rate 66 bpm 2016-10-18 Respiratory Rate 18 2016-10-18 BMI 19.53 kg/m2 2016-10-18 Blood pressure systolic 112 mmHg 2016-10-18 Blood pressure diastolic 68 mmHg 2016-10-18 MEDICATIONS Medication Instructions Dosage Frequency Start Date End Date Duration Status Vitamin D (Ergocalciferol) 16767 UNIT Orally once a week for 12 weeks and then start 3000iu daily 1 capsule May, Active RESULTS No Results PROCEDURES Procedure Date Ordered Result Body Site [facility] VISIT ESTABLISHED PATIENT October 18, 2016 THER/PROPH/DIAG INJ, SC/IM October 18, 2016 TORADOL (IM) 60 MG/2ML (UP TO 15 MG) October 18, 2016 INSTRUCTIONS MEDICATIONS ADMINISTERED No Known Medications MEDICAL (GENERAL) HISTORY Type Description Date Medical History COPD Medical History Bipolar Disorder Medical History Pneumonia Surgical History 2006 Surgical History tubal ligation 2006 Surgical History appendectomy 1992 Surgical History partial hysterectomy - due to bleeding 2007 Hospitalization History surgeries
--- OUTSIDE RECORDS SUMMARY | 2018-06-12 20:01 | XMS REPORT ---
Author Author DEAN MOORE [facility] Address [address] [place] [address] Care Team Providers Care Head Turning Machine Operator Name Role Phone DEAN MOORE Unavailable PROBLEMS Type Condition ICD9-CM Code LRB38-TN Code Onset Dates Condition Status SNOMED Code Problem Abnormal ultrasound of breast R92.8 Active 04337394783198032 Problem Pulmonary infiltrates R91.8 Active 041186391 Problem Vitamin D deficiency E55.9 Active 13050446 Problem Positive [place] (antinuclear antibody) R76.8 Active 710756039 Problem Fatigue, unspecified type R53.83 Active 22169024 ALLERGIES Substance Reaction Event Type Date Status Strattera "throat swell" Drug Allergy Jun, Active Morphine Sulfate anaphylaxis Drug Allergy Jun, Active SOCIAL HISTORY Never Assessed PLAN OF CARE Activity Details Follow Up end of august Reason:breast fu/ [place] VITAL SIGNS Height 66 in 2016-06-14 Weight 127.2 lbs 2016-06-14 Temperature 98.0 degrees Fahrenheit 2016-06-14 Heart Rate 77 bpm 2016-06-14 Respiratory Rate 18 2016-06-14 BMI 20.53 kg/m2 2016-06-14 Blood pressure systolic 112 mmHg 2016-06-14 Blood pressure diastolic 67 mmHg 2016-06-14 MEDICATIONS Medication Instructions Dosage Frequency Start Date End Date Duration Status Vitamin D (Ergocalciferol) 26445 UNIT Orally once a week for 12 weeks and then start 3000iu daily 1 capsule May, Active Oxcarbazepine 300 MG Orally daily 3 caps at HS 24h Jan, 30 days Active RESULTS No Results PROCEDURES Procedure Date Ordered Result Body Site [facility] VISIT ESTABLISHED PATIENT June 14, 2016 IMMUNIZATIONS No Known Immunizations MEDICAL (GENERAL) HISTORY Type Description Date Medical History Lupus- no actual dx Medical History COPD Medical History Bipolar Disorder Surgical History 2005 Surgical History tubal ligation 2006 Surgical History appendectomy 1992 Surgical History partial hysterectomy - due to bleeding 2007 Hospitalization History surgeries
--- OUTSIDE RECORDS SUMMARY | 2018-06-12 20:01 | XMS REPORT ---
Author Author HILDA DUMONT Organization [facility] Address [address] [place] [address] Care Team Providers Care Roller Hand Name Role Phone HILDA DUMONT Unavailable PROBLEMS Type Condition ICD9-CM Code UDD06-RR Code Onset Dates Condition Status SNOMED Code Problem Abnormal ultrasound of breast R92.8 Active 61545078219363753 Problem Pulmonary infiltrates R91.8 Active 658550110 Problem Vitamin D deficiency E55.9 Active 21902469 Problem Positive NIC (antinuclear antibody) R76.8 Active 056411870 Problem Fatigue, unspecified type R53.83 Active 60333301 ALLERGIES Substance Reaction Event Type Date Status Morphine Sulfate anaphylaxis Drug Allergy Dec, Active SOCIAL HISTORY Never Assessed PLAN OF CARE Activity Details Follow Up prn Reason: VITAL SIGNS Height 66 in 2015-12-25 Weight 121.8 lbs 2015-12-25 Temperature 98.4 degrees Fahrenheit 2015-12-25 Heart Rate 108 bpm 2015-12-25 Respiratory Rate 18 2015-12-25 BMI 19.66 kg/m2 2015-12-25 Blood pressure systolic 106 mmHg 2015-12-25 Blood pressure diastolic 70 mmHg 2015-12-25 MEDICATIONS Medication Instructions Dosage Frequency Start Date End Date Duration Status Augmentin 875-125 MG Orally every 12 hrs 1 tablet 12h 18 Dec, 2015Dec 10 day(s) Active RESULTS Name Result Date Reference Range STREP A (IN HOUSE) 2015-12-25 STREP A Negative Control + Lot # [id number] Exp date 09/12/17 PROCEDURES Procedure Date Ordered Result Body Site STREP A ASSAY W/OPTIC Dec 25, 2015 IMMUNIZATIONS No Known Immunizations MEDICAL (GENERAL) HISTORY Type Description Date Medical History Lupus- no actual dx Medical History COPD Medical History Bipolar Disorder Surgical History 2005 Surgical History tubal ligation 2006 Surgical History appendectomy 1992 Surgical History partial hysterectomy - due to bleeding 2006 Hospitalization History surgeries
--- OUTSIDE RECORDS SUMMARY | 2018-06-12 20:01 | XMS REPORT ---
Author Author DEAN MOORE [facility] Address [address] [place] [address] Care Team Providers Care Biomathematician Name Role Phone DAEN MOORE Unavailable PROBLEMS Type Condition ICD9-CM Code KSX84-QH Code Onset Dates Condition Status SNOMED Code Problem Abnormal ultrasound of breast R92.8 Active 78382675621664989 Problem Pulmonary infiltrates R91.8 Active 245807194 Problem Vitamin D deficiency E55.9 Active 51609955 Problem Positive NIC (antinuclear antibody) R76.8 Active 277862109 Problem Fatigue, unspecified type R53.83 Active 19630966 ALLERGIES No Information SOCIAL HISTORY Never Assessed PLAN OF CARE VITAL SIGNS MEDICATIONS No Known Medications RESULTS No Results PROCEDURES No Known procedures IMMUNIZATIONS No Known Immunizations MEDICAL (GENERAL) HISTORY Type Description Date Medical History Lupus- no actual dx Medical History COPD Medical History Bipolar Disorder Surgical History 2006 Surgical History tubal ligation 2006 Surgical History appendectomy 1992 Surgical History partial hysterectomy - due to bleeding 2007 Hospitalization History surgeries
--- OUTSIDE RECORDS SUMMARY | 2018-06-12 20:01 | XMS REPORT ---
Author Author DEAN MOORE [facility] Address [address] [place] [address] Care Team Providers Care Comptometer Operator Name Role Phone DEAN MOORE Unavailable PROBLEMS Type Condition ICD9-CM Code [id number] Code Onset Dates Condition Status SNOMED Code Problem Abnormal ultrasound of breast R92.8 Active 92824852668635107 Problem Pulmonary infiltrates R91.8 Active 295634061 Problem Vitamin D deficiency E55.9 Active 38560258 Problem Positive NIC (antinuclear antibody) R76.8 Active 777558575 Problem Fatigue, unspecified type R53.83 Active [id number] ALLERGIES No Information SOCIAL HISTORY Never Assessed [...]
--- OUTSIDE RECORDS SUMMARY | 2018-06-12 20:01 | XMS REPORT ---
Author Author HILDA DUMONT Organization [facility] Address [address] [place] [address] Care Team Providers Care Machine Installer Name Role Phone TIMALFHILDA Unavailable PROBLEMS Type Condition ICD9-CM Code [id number] Code Onset Dates Condition Status SNOMED Code Problem Abnormal ultrasound of breast R92.8 Active 68660779763999746 Problem Pulmonary infiltrates R91.8 Active 930644935 Problem Vitamin D deficiency E55.9 Active 55134125 Problem Positive NIC (antinuclear antibody) R76.8 Active 824439339 Problem Fatigue, unspecified type R53.83 Active 39727134 ALLERGIES Substance Reaction Event Type Date Status Strattera "throat swell" Drug Allergy Dec, Active Morphine Sulfate anaphylaxis Drug Allergy Dec, Active ENCOUNTERS Encounter Location Date Diagnosis [facility] [id number] [place] [phone] Jul, Dental examination Z01.20 and 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 [id number] [address] Jun, [facility] [address] [id number] [id number] Jun, [facility] [address] [address] [id number] [id number] Jun, Dental examination Z01.20 [facility] [id number] [place] [phone] Dec, Aphthous ulcer of mouth K12.0 [facility] [id number] [place] [phone] Oct, Headache, unspecified headache type R51 [facility] [id number] [place] [phone] Jun, Vitamin D deficiency E55.9 ; Positive NIC (antinuclear antibody) R76.8 and Abnormal ultrasound of breast R92.8 [facility] [id number] [place] [address] May, Breast nodule N63 [facility] [address] [address] May, [facility] [address] [address] May, [facility] [address] [address] May, General medical exam Z00.00 ; Breast pain, right N64.4 ; Breast nodule N63 ; Pain in right knee M25.561 ; Pain in left knee M25.562 and Arthralgia of multiple sites, bilateral M25.50 [facility] [id number] [place] [address] Apr, Mood changes F39 [facility] [address] [address] Apr, [facility] [id number] [place] [address] Apr, Generalized anxiety disorder F41.1 ; Mood changes F39 and Other half-way (current) drug therapy Z79.899 [facility] [id number] [place] [address] Mar, Dyspepsia R10.13 [facility] [id number] [place] [phone] Feb, [facility] [id number] [place] [address] Jan, Pulmonary infiltrates R91.8 and Positive NIC (antinuclear antibody) R76.8 [facility] [address] [address] Jan, 2016 [facility] [address] [address] Jan, 2016 Mood disorder F39 [facility] [address] [address] Dec, 2015 Fatigue, unspecified type R53.83 [facility] [id number] [address] Dec, 2015 Acute non-recurrent frontal sinusitis J01.10 [facility] [id number] [place] [phone] 14 Dec, 2015 Generalized anxiety disorder F41.1 and Unspecified mood [ affective] disorder F39 IMMUNIZATIONS No Known Immunizations SOCIAL HISTORY Never Assessed REASON FOR VISIT thrush/sores in mouth , Pt states she gets frequent canker sores. Currently has several. Hard time eating and drinking-CHARLENE Tiwari PLAN OF CARE Activity Details Follow Up prn Reason: VITAL SIGNS Height 66 in 2016-12-17 Weight 115 lbs 2016-12-17 Temperature 98.4 degrees Fahrenheit 2016-12-17 Heart Rate 64 bpm 2016-12-17 Respiratory Rate 18 2016-12-17 BMI 18.56 kg/m2 2016-12-17 Blood pressure systolic 110 mmHg 2016-12-17 Blood pressure diastolic 70 mmHg 2016-12-17 MEDICATIONS Medication Instructions Dosage Frequency Start Date End Date Duration Status Vitamin D (Ergocalciferol) 86559 UNIT Orally once a week for 12 weeks and then start 3000iu daily 1 capsule May, Active Magic Mouthwash Apply medicated swab to sore areas of the mouth to numb the pain As needed 5 mls swish and spit Dec, Jan, 10 days Active RESULTS No Results PROCEDURES Procedure Date Ordered Result Body Site [facility] VISIT ESTABLISHED PATIENT Dec 17, 2016 INSTRUCTIONS MEDICATIONS ADMINISTERED No Known Medications MEDICAL (GENERAL) HISTORY Type Description Date Medical History COPD Medical History Bipolar Disorder Medical History Pneumonia Surgical History 2005 Surgical History tubal ligation 2006 Surgical History appendectomy 1993 Surgical History partial hysterectomy - due to bleeding 2006
--- OUTSIDE RECORDS SUMMARY | 2018-06-12 20:01 | XMS REPORT ---
Author Author RON Martinez [facility] Address [address] [place] [address] Care Team Providers Care Facilities Clerk Name Role Phone RON Martinez Unavailable PROBLEMS Type Condition ICD9-CM Code WUQ01-QU Code Onset Dates Condition Status SNOMED Code Problem Abnormal ultrasound of breast R92.8 Active [id number] Problem Pulmonary infiltrates R91.8 Active 124213753 Problem Vitamin D deficiency E55.9 Active 93846138 Problem Positive NIC (antinuclear antibody) R76.8 Active 858790745 Problem Fatigue, unspecified type R53.83 Active 56048872 ALLERGIES No Known Allergies SOCIAL HISTORY No smoking Hx information available PLAN OF CARE VITAL SIGNS MEDICATIONS Medication Instructions Dosage Frequency Start Date End Date Duration Status Oxcarbazepine 300 MG Orally daily 3 caps at HS 24h Jan, 30 days Active RESULTS No Results PROCEDURES No Known procedures IMMUNIZATIONS No Known Immunizations
[2018-06-12] MEDS ORDERED: ONDANSETRON 4 MG (ZOFRAN) ORAL DISSOLVE TAB SL STA (21:23)
--- NOTE | 2018-06-12 21:46 | ED Cough/URI ---
General Chief Complaint: Cough/Cold/Flu Symptoms Stated Complaint: N,V,COUGH Nursing Triage Note: PT PRESENTS TO ER WITH COMPLAINT OF COUGH, CONGESTION, CHILLS, AND NAUSEA THAT STARTED YESTERDAY. PT STATES THAT SHE HAS BEEN COUGHING UP BLOOD. PT STATES SHE HAS HX OF COPD. Sepsis Screen: No Definite Risk History of Present Illness Date Seen by Provider: Jun 12, 2018 Time Seen by Provider: 21:30 Initial Comments 37-year-old female presents for nausea and congestion. He reports her symptoms began yesterday. She has a history of COPD but is on no medications and does not see a health care provider regularly. She reports a cough that is productive at times and has noted some hemoptysis, dark red to brown in color. It does not occur at all times. 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 She reports chills but has not checked her temperature. Timing/Duration: yesterday Severity/Quality: productive cough Prior Episodes/Possible Cause: occasional episodes Associated Symptoms: cough, fever/chills, muscle aches Allergies and Home Medications Allergies Coded Allergies: morphine (Unverified Allergy, Unknown, 03/09/16) Home Medications Naproxen 500 Mg Tablet, 500 MG PO BID Prescribed by: HERO ERWIN on 07/18/16 0944 Patient Home Medication List Home Medication List Reviewed: Yes Review of Systems Review of Systems Constitutional: no symptoms reported, see HPI Respiratory: see HPI, cough Gastrointestinal: see HPI, nausea All Other Systems Reviewed Negative Unless Noted: Yes Past Avrhpwf-Pojtlb-Fzsccx Hx Past Med/Social Hx: Reviewed Nursing Past Med/Soc Hx Patient Social History Alcohol Use: Denies Use Recreational Drug Use: No Smoking Status: Never a Smoker Recent Foreign Travel: No Contact w/Someone Who Travel: No Recent Infectious Disease Expo: No Recent Hopitalizations: No Immunizations Up To Date Tetanus Booster (TDap): More than 5yrs Date of Influenza Vaccine: Jan 07, 2016 Seasonal Allergies Seasonal Allergies: No Past Medical History Surgeries: Yes Appendectomy, Section, Hysterectomy, Tubal Ligation Respiratory: Yes Pneumonia Cardiac: No Neurological: No Reproductive Disorders: No [employer]GER [employer] History: Hysterectomy Gastrointestinal: No Musculoskeletal: No Endocrine: Yes (STATES THEY ARE TESTING FOR LUPUS) Cancer: No Psychosocial: No Integumentary: No Blood Disorders: No Physical Exam Vital Signs - First Documented 06/12/18 20:41 Temp 98.5 Pulse 67 Resp 20 B/P (MAP) 102/64 (77) Pulse Ox 100 O2 Delivery Room Air Capillary Refill : Less Than 3 Seconds Height: 5'6.00" Weight: 125lbs. oz. 56.016446er; BMI Method:Stated General Appearance: WD/WN, no apparent distress Eyes: Bilateral Eye Normal Inspection, Bilateral Eye PERRL, Bilateral Eye EOMI HEENT: PERRL/EOMI, normal ENT inspection, TMs normal, pharynx normal Neck: non-tender, full range of motion, supple, normal inspection Respiratory: chest non-tender, lungs clear, normal breath sounds Cardiovascular: normal peripheral pulses, regular rate, rhythm Gastrointestinal: normal bowel sounds, non tender, soft Extremities: normal range of motion, non-tender, normal inspection, normal capillary refill Neurologic/Psychiatric: no motor/sensory deficits, alert, normal mood/affect Skin: normal color, warm/dry Lymphatic: no adenopathy Progress/Results/Core Measures Suspected Sepsis Recent Fever Within 48 Hours: No Infection Criteria Present: None New/Unexplained Altered Menta: No Sepsis Screen: No Definite Risk SIRS Temperature:98.5 Pulse: 67 Respiratory Rate: 20 Blood Pressure 102 /64 Mean: 77 Results/Orders Micro Results Microbiology 06/12/18 Influenza Types A,B Antigen ([facility]) - Final, Complete My Orders Orders - MINERVA GROVES Ondansetron Oral Dissolve Tab (Zofran (06/12/18 21:23) Vital Signs/I&O 06/12/18 20:41 Temp 98.5 Pulse 67 Resp 20 B/P (MAP) 102/64 (77) Pulse Ox 100 O2 Delivery Room Air Capillary Refill : Less Than 3 Seconds Blood Pressure Mean: 77 Departure Impression Primary Impression: Viral upper respiratory illness Disposition: 01 HOME, SELF-CARE Condition: Improved Departure-Patient Inst. Decision time for Depature: 21:55 Referrals: [facility] (PCP/Family) Primary Care Physician Patient Instructions: Cough, Adult (DC), Viral Upper Respiratory Infection, Adult (DC) Add. Discharge Instructions: Increase her water intake, 16 ounces every 2 hours while awake. You may use uwel-dwl-prjwxfh Mucinex one tablet twice daily. Alternate between Tylenol 650 mg and ibuprofen 600 mg every 4 hours for fever or pain Follow-up with your primary care provider if symptoms are not improving or worsen. Return to the emergency department for difficulty breathing, fever greater than 101 not relieved by Tylenol and ibuprofen, new urgent problems or concerns. All discharge instructions reviewed with patient and/or family. Voiced understanding. Work/School Note: Work Release Form Date Seen in the Emergency Department: Jun 12, 2018 Return to Work: Jun 14, 2018 Restrictions: No Restrictions MINERVA GROVES Jun 12, 2018 21:46
[2018-06-12 22:00] VITALS: BP 102/64
== END 2018-06-12 22:00 | disposition home or self-care (01) ==
LOC: EDUNIT# 19:56 → ER 19:58
DX: J06.9 Acute upper respiratory infection, unspecified (principal); J44.9 Chronic obstructive pulmonary disease, unspecified; Z90.49 Acquired absence of other specified parts of digestive tract; Z98.890 Other specified postprocedural states; Z88.5 Allergy status to narcotic agent; Z90.710 Acquired absence of both cervix and uterus; Z98.51 Tubal ligation status
CPT/HCPCS: 87804

== ENCOUNTER 2018-11-09 19:12 | Emergency (ER) | payer MEDICARE ==
[~2018-11-09] VITALS: Ht 167.6 cm; Wt 52.2 kg
--- NOTE | 2018-11-09 19:41 | ED EENT ---
History of Present Illness General Chief Complaint: Oral/Throat Problems Stated Complaint: SWOLLEN TONGUE, SORE MOUTH Nursing Triage Note: pt got prescribed amoxicillin for a sinus infection et she thinks she is having an allergic reaction. 3 days ago she started having mouth soreness, and today is 3/4 day taking it. Pt feels like her tongue is swollen et the pain is awful. Pt can't eat or drink. Source: patient Exam Limitations: no limitations History of Present Illness Date Seen by Provider: Nov 09, 2018 Time Seen by Provider: 19:22 Initial Comments Patient presents to the ER by private conveyance with chief complaint that she was seen at urgent care for a sinus infection and started on amoxicillin 4 days ago. She's been taking it appropriately and then 3 days ago she started having a little mild swelling in painful lesions in her mouth especially below her tongue and one on the roof of her mouth. She has a history of cold sores but she's not having one now. No fevers chills nausea vomiting difficulty swallowing breathing, stridor etc. Allergies and Home Medications Allergies Coded Allergies: morphine (Unverified Allergy, Unknown, 03/09/16) Home Medications Naproxen 500 Mg Tablet, 500 MG PO BID Prescribed by: HERO ERWIN on 07/18/16 0944 Patient Home Medication List Home Medication List Reviewed: Yes Review of Systems Review of Systems Constitutional: No chills, No diaphoresis Eyes: Denies Blindness, Denies Blurred Vision Ears: Denies Dizziness, Denies Pain Nose: denies clots; congestion Mouth: see HPI; denies clots, denies loose teeth Throat: denies pain, denies swelling, denies discharge, denies neck stiffness, denies hoarse Past Zfgmzip-Pundsi-Nvuyei Hx Patient Social History Alcohol Use: Denies Use Recreational Drug Use: No Smoking Status: Never a Smoker Recent Foreign Travel: No Contact w/Someone Who Travel: No Recent Infectious Disease Expo: No Recent Hopitalizations: No Immunizations Up To Date Tetanus Booster (TDap): More than 5yrs Date of Influenza Vaccine: Jan 07, 2016 Seasonal Allergies Seasonal Allergies: No Past Medical History Surgeries: Yes Appendectomy, Section, Hysterectomy, Tubal Ligation Respiratory: Yes Pneumonia Cardiac: No Neurological: No Reproductive Disorders: No B[employer] History: Hysterectomy Gastrointestinal: No Musculoskeletal: No Endocrine: Yes (STATES THEY ARE TESTING FOR LUPUS) Cancer: No Psychosocial: No Integumentary: No Blood Disorders: No Physical Exam Vital Signs Vital Signs - First Documented 11/09/18 19:19 Temp 98.1 Pulse 70 Resp 20 B/P (MAP) 124/79 (94) Pulse Ox 100 O2 Delivery Room Air Height, Weight, BMI Height: 5'6.00" Weight: 115lbs. oz. 52.442135vj; BMI Method:Stated General Appearance: WD/WN, no apparent distress Eyes: bilateral eye normal inspection, bilateral eye PERRL, bilateral eye EOMI Ears: bilateral ear auricle normal, bilateral ear canal normal, bilateral ear TM normal Nose: normal inspection; No active bleeding, No discharge Mouth/Throat: No dental tenderness, No excessive drooling, No foreign body, No mandibular swelling, No maxillary swelling, No tongue swollen; other (few white shallow, benign appearing ulcers at the base of the tongue and one on the roof of the mouth.) Progress/Results/Core Measures Results/Orders My Orders Orders - MICHELLE FABIAN Lidocaine 2% Viscous 15 Ml (Xylocaine Vi (11/09/18 19:45) Vital Signs/I&O 11/09/18 19:19 Temp 98.1 Pulse 70 Resp 20 B/P (MAP) 124/79 (94) Pulse Ox 100 O2 Delivery Room Air Blood Pressure Mean: 94 Progress Progress Note : Time: 19:37 Progress Note Benign aphthous ulcers. Chlorhexidine mouth rinse and viscous lidocaine for pain control. Departure Impression Primary Impression: Aphthous ulcer of tongue Disposition: 01 HOME, SELF-CARE Condition: Stable Departure-Patient Inst. Decision time for Depature: 19:39 Referrals: NO,LOCAL PHYSICIAN (PCP) Primary Care Physician [facility] (Family) Primary Care Physician Patient Instructions: Mouth Sores (DC) Add. Discharge Instructions: The ulcers in your mouth are thought to be caused by a virus or your antibiotics will have no effect on them. You can use the Magic mouthwash 15 mL or 1/2 ounce to be swished for 30 seconds twice a day. Avoid eating for 30 minutes after you use this. If you have severe pain you can painted a small amount of the viscous lidocaine jelly or vhkx-rxa-rheuzuw Orajel directly over the ulcers for instant pain relief. Naprosyn 2 capsules twice daily or ibuprofen 800 mg 3 times a day can be helpful. Tylenol 1000 mg 3 times a day can be helpful. All discharge instructions reviewed with patient and/or family. Voiced understanding. Scripts Chlorhexidine Gluconate (Chlorhexidine Gluconate) 473 Ml Mouthwash 15 ML MM BID for 7 Days, #1 EA 0 Refills Prov: MICHELLE FABIAN 11/09/18 MICHELLE FABIAN Nov 09, 2018 19:41
[2018-11-09] MEDS ORDERED: CHLO473M MM (19:42)
[2018-11-09] MEDS ORDERED: LIDOCAINE 2% VISCOUS 15 ML UDC PO ONE (19:45)
[2018-11-09 19:50] VITALS: BP 124/79
== END 2018-11-09 19:50 | disposition home or self-care (01) ==
LOC: EDUNIT# 19:12 → ER 19:15
DX: K14.0 Glossitis (principal); Z88.5 Allergy status to narcotic agent; Z90.89 Acquired absence of other organs; Z90.710 Acquired absence of both cervix and uterus; Z98.51 Tubal ligation status
CPT/HCPCS: 99283

== ENCOUNTER 2019-05-01 18:37 | Emergency (ER) | payer MEDICARE ==
[~2019-05-01] VITALS: Ht 167 cm; Wt 53.9 kg
[~2019-05-01 18:37] MED LIST changes: +NFCHLORHGL MM
--- NOTE | 2019-05-01 19:17 | ED Abdominal Pain ---
General Chief Complaint: Abdominal/GI Problems Stated Complaint: LOWER ABD PAIN Nursing Triage Note: PT PRESENTS TO ED FROM [facility] WITH COMPLAINTS OF R LOWER ABDOMINAL PAIN AND SUPRAPUBIC PAIN STARTING YESTERDAY. PT REPORTS 2 EPISODES OF DIAHRREA YESTERDAY WELL. Sepsis Screen: No Definite Risk Source of Information: Patient Exam Limitations: No Limitations History of Present Illness Date Seen by Provider: May 01, 2019 Time Seen by Provider: 18:56 Initial Comments To ER with sharp right lower/suprapubic abdominal pain since yesterday. She did have 2 episodes of diarrhea yesterday. No nausea no vomiting no fever no chills. No dysuria. Partial hysterectomy, has both ovaries. Has had an appendectomy. Timing/Duration: 1-2 Days Severity/Quality: Moderate Location: RLQ, Suprapubic Radiation: No Radiation Activities at Onset: None Associated Symptoms: Denies Symptoms Allergies and Home Medications Allergies Coded Allergies: morphine (Unverified Allergy, Unknown, 03/09/16) Home Medications Chlorhexidine Gluconate 473 Ml Mouthwash, 15 ML MM BID Prescribed by: MICHELLE FABIAN on 11/09/181941 Naproxen 500 Mg Tablet, 500 MG PO BID Prescribed by: HERO ERWIN on 07/18/16 0944 Patient Home Medication List Home Medication List Reviewed: Yes Review of Systems Review of Systems Constitutional: see HPI EENTM: No Symptoms Reported Respiratory: No Symptoms Reported Cardiovascular: No Symptoms Reported Gastrointestinal: See HPI, Abdominal Pain, Diarrhea Genitourinary: No Symptoms Reported Musculoskeletal: no symptoms reported Skin: no symptoms reported Psychiatric/Neurological: No Symptoms Reported Endocrine: No Symptoms Reported Past Chmshqy-Caaeqc-Tnsbwi Hx Patient Social History Alcohol Use: Denies Use Recreational Drug Use: No Smoking Status: Never a Smoker Recent Foreign Travel: No Contact w/Someone Who Travel: No Recent Infectious Disease Expo: No Recent Hopitalizations: No Physical Abuse: No Sexual Abuse: No Mistreated: No Fear: No Immunizations Up To Date Tetanus Booster (TDap): More than 5yrs Date of Influenza Vaccine: Jan 07, 2016 Seasonal Allergies Seasonal Allergies: No Past Medical History Surgeries: Yes Appendectomy, Section, Hysterectomy, Tubal Ligation Respiratory: Yes Pneumonia Cardiac: No Neurological: No Reproductive Disorders: No RN ELIGIBILITY History: Hysterectomy Gastrointestinal: No Musculoskeletal: No Endocrine: Yes (STATES THEY ARE TESTING FOR LUPUS) Cancer: No Psychosocial: No Integumentary: No Blood Disorders: No Physical Exam Vital Signs Vital Signs - First Documented 05/01/19 18:55 Temp 36.6 Pulse 81 Resp 20 B/P (MAP) 131/83 (99) Pulse Ox 100 Capillary Refill : Less Than 3 Seconds Height/Weight/BMI Height: 5'6.00" Weight: 115lbs. oz. 52.674697xh; 19.00 BMI Method:Stated General Appearance: WD/WN, no apparent distress Respiratory: no respiratory distress, no accessory muscle use Gastrointestinal: normal bowel sounds, soft, tenderness Extremities: normal range of motion, non-tender Neurologic/Psychiatric: alert, normal mood/affect, oriented x 3 Skin: normal color, warm/dry Progress/Results/Core Measures Results/Orders Lab Results Laboratory Tests Test 05/01/19 18:58 05/01/19 19:20 Range/Units Urine Color YELLOW Urine Clarity CLEAR Urine pH 5.0 5-9 Urine Specific [place] >=1.030 1.016-1.022 Urine Protein NEGATIVE NEGATIVE Urine Glucose (UA) NEGATIVE NEGATIVE Urine Ketones NEGATIVE NEGATIVE Urine Nitrite NEGATIVE NEGATIVE Urine Bilirubin NEGATIVE NEGATIVE Urine Urobilinogen 0.2 < = 1.0 MG/DL Urine Leukocyte Esterase NEGATIVE NEGATIVE Urine RBC (Auto) 1+ H NEGATIVE Urine RBC 2-5 H /HPF Urine WBC 2-5 /HPF Urine Squamous Epithelial Cells 5-10 /HPF Urine Crystals NONE /LPF Urine Bacteria FEW H /HPF Urine Casts NONE /LPF Urine Mucus NEGATIVE /LPF Urine Culture Indicated YES White Blood Count 6.7 4.3-11.0 10^3/uL Red Blood Count 4.47 4.35-5.85 10^6/uL Hemoglobin 13.0 11.5-16.0 G/DL Hematocrit 38 35-52 % Mean Corpuscular Volume 86 80-99 FL Mean Corpuscular Hemoglobin 29 25-34 PG Mean Corpuscular Hemoglobin Concent 34 32-36 G/DL Red Cell Distribution Width 13.1 10.0-14.5 % Platelet Count 192 130-400 10^3/uL Mean Platelet Volume 11.4 H 7.4-10.4 FL Neutrophils (%) (Auto) 66 42-75 % Lymphocytes (%) (Auto) 28 12-44 % Monocytes (%) (Auto) 6 0-12 % Eosinophils (%) (Auto) 1 0-10 % Basophils (%) (Auto) 0 0-10 % Neutrophils # (Auto) 4.4 1.8-7.8 X 10^3 Lymphocytes # (Auto) 1.9 1.0-4.0 X 10^3 Monocytes # (Auto) 0.4 0.0-1.0 X 10^3 Eosinophils # (Auto) 0.1 0.0-0.3 10^3/uL Basophils # (Auto) 0.0 0.0-0.1 10^3/uL Sodium Level 139 135-145 MMOL/L Potassium Level 3.3 L 3.6-5.0 MMOL/L Chloride Level 106 98-107 MMOL/L Carbon Dioxide Level 21 21-32 MMOL/L Anion Gap 12 5-14 MMOL/L Blood Urea Nitrogen 10 7-18 MG/DL Creatinine 0.80 0.60-1.30 MG/DL Estimat Glomerular Filtration Rate > 60 BUN/Creatinine Ratio 13 Glucose Level 102 70-105 MG/DL Calcium Level 9.1 8.5-10.1 MG/DL Corrected Calcium 8.7 8.5-10.1 MG/DL Total Bilirubin 0.4 0.1-1.0 MG/DL Aspartate Amino Transf (AST/SGOT) 21 5-34 U/L Alanine Aminotransferase (ALT/SGPT) 9 0-55 U/L Alkaline Phosphatase 76 40-136 U/L Total Protein 7.7 6.4-8.2 GM/DL Albumin 4.5 3.2-4.5 GM/DL Serum Test, Qualitative NEGATIVE NEGATIVE My Orders Orders - ALFREDO CLEMENT DEMOLITIONIST Cbc With Automated Diff (05/01/19 19:10) Comprehensive Metabolic Panel (05/01/19 19:10) Ua Culture If Indicated (05/01/19 19:10) Hcg,Qualitative Serum (05/01/19 19:10) Ed Iv/Invasive Line Start (05/01/19 19:10) Ct Abdomen/Pelvis W (05/01/19 19:10) Ketorolac Injection (Toradol Injection) (05/01/19 19:30) Iohexol Injection (Omnipaque 350 Mg/Ml 1 (05/01/19 19:45) Received Contrast (Hold Metformin- Contr (05/01/19 19:45) Sodium Chloride Flush (Catheter Flush Sy (1/24/20 19:45) Ns (Ivpb) (Sodium Chloride 0.9% Ivpb Bag (05/01/19 19:45) Urine Culture (05/01/19 18:58) Medications Given in ED Current Medications Medications Dose Ordered Sig/Jey Route Start Time Stop Time Status Last Admin Dose Admin Iohexol 100 ml ONCE ONCE IV 05/01/19 19:45 05/01/19 19:46 DC 05/01/19 19:58 68 ML Ketorolac Tromethamine 15 mg ONCE ONCE IVP 05/01/19 19:30 05/01/19 19:31 DC 05/01/19 19:34 15 MG Sodium Chloride 10 ml NEEDED PRN IV 05/01/19 19:45 05/01/19 19:58 10 ML Sodium Chloride 100 ml ONCE ONCE IV 05/01/19 19:45 05/01/19 19:46 DC 05/01/19 19:58 80 ML Vital Signs/I&O 05/01/19 18:55 Temp 36.6 Pulse 81 Resp 20 B/P (MAP) 131/83 (99) Pulse Ox 100 Blood Pressure Mean: 99 Departure Communication (Admissions) Family Conversation She has no respiratory symptoms such as cough or fever. The CT findings on the chest can be followed up with primary care. NAME: RANDOLPH KAUFMAN [facility] REC#: [id number] PT STATUS: REG ER : 1980 PHYSICIAN: ALFREDO CLEMENT APRN ADMIT DATE: 05/01/19/ER Draft Date of Exam:05/01/19 CT ABDOMEN/PELVIS W INDICATION: Right lower quadrant pain and suprapubic pain with diarrhea since yesterday. History of and tubulization, partial hysterectomy and appendectomy. EXAMINATION: CT abdomen and pelvis with contrast, 05/01/2019. FINDINGS: There is diffuse fatty infiltration throughout the liver. The gallbladder is contracted. The spleen is unremarkable. Kidneys are within normal limits. No free fluid or air in the abdomen or the pelvis. No inflammatory change about the cecum. There is a small amount of free fluid in the pelvis, possibly physiologic, with a small hyperdensity in the right lower quadrant perhaps an involuting corpus luteal cyst. Otherwise, postoperative changes of partial hysterectomy are seen in the pelvis. No evidence for an acute process about the bowel loops. Within the visualized lung bases there is incompletely imaged abnormality within the lateral anterior right lower lobe. This could represent focal area of bronchiectasis. Scarring and/or an atypical type of pneumonia also in the differential given the linear process with tiny nodularities, suspicious for a tree-in-bud type appearance. Similar but less dense areas scattered in the visualized lingula and in the posterior left lung base. The visualized lung bases demonstrate no evidence for an acute abnormality. IMPRESSION: 1. Findings within the lungs are nonspecific and incompletely imaged but an atypical type of pneumonia should be considered. Area of bronchiectasis is possible as well and followup is recommended. 2. Postoperative change in incidental findings within the abdomen and pelvis. Minimal free fluid in the pelvis most likely physiologic. Dictated on workstation # [id number] Dict: 05/01/192015 Trans: 05/01/192048 [facility] [id number] Interpreted by: BRONWYN GEE MD Electronically signed by: Impression Primary Impression: Suprapubic abdominal pain Disposition: 01 HOME, SELF-CARE Condition: Stable Departure-Patient Inst. Decision time for Depature: 20:55 Referrals: NO,LOCAL PHYSICIAN (PCP) Primary Care Physician [facility] (Family) Primary Care Physician Patient Instructions: No Instuctions Given, Acute Abdomen (Belly Pain), Adult (DC) Add. Discharge Instructions: 1. Return to ER for any concerns 2. Follow-up with your doctor next week 3. Tylenol and ibuprofen for pain control. 4. The CT scan of your abdomen also included portions of the lower lung reyna which shows some areas that could be scarring or other long-term structural abnormalities like bronchiectasis.. You need to follow-up with your regular doctor within the next few weeks Copy Copies To 1: RAMON GALDAMEZ PETER J APRN May 01, 2019 19:17
[2019-05-01 19:27] LABS: BASOPHILS % (AUTO) 0 % (0-10); EOSINOPHILS # (AUTO) 0.1 10^3/uL (0.0-0.3); EOSINOPHILS % (AUTO) 1 % (0-10); HEMATOCRIT 38 % (35-52); LYMPHOCYTES # (AUTO) 1.9 X 10^3 (1.0-4.0); LYMPHOCYTES % (AUTO) 28 % (12-44); MEAN CORPUSCULAR HEMOGLOBIN 29 PG (25-34); MEAN CORPUSCULAR HGB CONC 34 G/DL (32-36); MEAN CORPUSCULAR VOLUME 86 FL (80-99); MEAN PLATELET VOLUME 11.4 FL (7.4-10.4); MONOCYTES # (AUTO) 0.4 X 10^3 (0.0-1.0); MONOCYTES % (AUTO) 6 % (0-12); NEUTROPHILS # (AUTO) 4.4 X 10^3 (1.8-7.8); NEUTROPHILS % (AUTO) 66 % (42-75); PLATELET COUNT 192 10^3/uL (130-400); RED CELL DISTRIBUTION WIDTH 13.1 % (10.0-14.5); WHITE BLOOD COUNT 6.7 10^3/uL (4.3-11.0)
[2019-05-01] MEDS ORDERED: KETOROLAC 30 MG/ML VIAL IVP ONE (19:30)
[2019-05-01 19:41] LABS: BILIRUBIN,URINE NEGATIVE (NEGATIVE); CLARITY,URINE CLEAR; COLOR,URINE YELLOW; GLUCOSE, URINE (UA) NEGATIVE (NEGATIVE); KETONES,URINE NEGATIVE (NEGATIVE); LEUKOCYTE ESTERASE ,URINE NEGATIVE (NEGATIVE); NITRITE,URINE NEGATIVE (NEGATIVE); PROTEIN,URINE NEGATIVE (NEGATIVE)
[2019-05-01 19:45] LABS: ALANINE AMINOTRANSFERASE 9 U/L (0-55); ALBUMIN 4.5 GM/DL (3.2-4.5); ALKALINE PHOSPHATASE 76 U/L (40-136); BILIRUBIN,TOTAL 0.4 MG/DL (0.1-1.0); BUN/CREATININE RATIO 13; CALCIUM 9.1 MG/DL (8.5-10.1); CARBON DIOXIDE 21 MMOL/L (21-32); CHLORIDE 106 MMOL/L (98-107); GFR ESTIMATED > 60; GLUCOSE 102 MG/DL (70-105); POTASSIUM 3.3 MMOL/L (3.6-5.0); SODIUM 139 MMOL/L (135-145); TOTAL PROTEIN 7.7 GM/DL (6.4-8.2)
[2019-05-01] MEDS ORDERED: IOHEXOL 350 MG/ML 100 ML (OMNIPAQUE 350) VIAL IV ONE (19:45)
[2019-05-01] MEDS ORDERED: HOLD METFORMIN - RECEIVED CONTRAST 20 ML VIAL IV SCH (19:45)
[2019-05-01] MEDS ORDERED: CATHETER FLUSH 10 ML SYR IV PRN (19:45)
[2019-05-01] MEDS ORDERED: NS 100 ML (IVPB) BAG IV ONE (19:45)
[2019-05-01 20:07] LABS: BACTERIA,URINE FEW /HPF
--- NOTE | 2019-05-01 20:50 | Diagnostic Imaging Report ---
INDICATION: Right lower quadrant pain and suprapubic pain with diarrhea since yesterday. History of and tubulization, partial hysterectomy and appendectomy. EXAMINATION: CT abdomen and pelvis with contrast, 05/01/2019. All CT scans use one or more of the following dose optimizing techniques: automated exposure control, MA and/or KvP adjustment based on patient size and exam type or iterative reconstruction. FINDINGS: There is diffuse fatty infiltration throughout the liver. The gallbladder is contracted. The spleen is unremarkable. Kidneys are within normal limits. No free fluid or air in the abdomen or the pelvis. No inflammatory change about the cecum. There is a small amount of free fluid in the pelvis, possibly physiologic, with a small hyperdensity in the right lower quadrant perhaps an involuting corpus luteal cyst. Otherwise, postoperative changes of partial hysterectomy are seen in the pelvis. No evidence for an acute process about the bowel loops. Within the visualized lung bases there is incompletely imaged abnormality within the lateral anterior right lower lobe. This could represent focal area of bronchiectasis. Scarring and/or an atypical type of pneumonia also in the differential given the linear process with tiny nodularities, suspicious for a tree-in-bud type appearance. Similar but less dense areas scattered in the visualized lingula and in the posterior left lung base. The visualized lung bases demonstrate no evidence for an acute abnormality. IMPRESSION: 1. Findings within the lungs are nonspecific and incompletely imaged but an atypical type of pneumonia should be considered. Area of bronchiectasis is possible as well and followup is recommended. 2. Postoperative change in incidental findings within the abdomen and pelvis. Minimal free fluid in the pelvis most likely physiologic. Dictated by: Dictated on workstation # [id number]
[2019-05-01 21:02] VITALS: BP 128/80
== END 2019-05-01 21:02 | disposition home or self-care (01) ==
LOC: EDUNIT# 18:37 → ER 18:38
DX: R10.30 Lower abdominal pain, unspecified (principal); Z90.711 Acquired absence of uterus with remaining cervical stump; Z90.49 Acquired absence of other specified parts of digestive tract; Z88.5 Allergy status to narcotic agent; Z98.51 Tubal ligation status
CPT/HCPCS: 36415; 74177; 80053; 81000; 84703; 85025; 87088

== ENCOUNTER 2019-06-23 16:00 | Emergency (ER) | payer MEDICARE ==
[~2019-06-23] VITALS: Ht 167.7 cm; Wt 52.6 kg
[2019-06-23 16:26] LABS: BASOPHILS % (AUTO) 0 % (0-10); EOSINOPHILS # (AUTO) 0.2 10^3/uL (0.0-0.3); EOSINOPHILS % (AUTO) 2 % (0-10); HEMATOCRIT 41 % (35-52); HEMOGLOBIN 13.6 G/DL (11.5-16.0); LYMPHOCYTES # (AUTO) 2.2 X 10^3 (1.0-4.0); LYMPHOCYTES % (AUTO) 31 % (12-44); MEAN CORPUSCULAR HEMOGLOBIN 29 PG (25-34); MEAN CORPUSCULAR HGB CONC 33 G/DL (32-36); MEAN CORPUSCULAR VOLUME 87 FL (80-99); MEAN PLATELET VOLUME 11.8 FL (7.4-10.4); MONOCYTES # (AUTO) 0.5 X 10^3 (0.0-1.0); MONOCYTES % (AUTO) 7 % (0-12); NEUTROPHILS # (AUTO) 4.2 X 10^3 (1.8-7.8); NEUTROPHILS % (AUTO) 59 % (42-75); PLATELET COUNT 244 10^3/uL (130-400); RED CELL DISTRIBUTION WIDTH 12.9 % (10.0-14.5)
--- NOTE | 2019-06-23 16:29 | ED Chest Pain ---
General Chief Complaint: Chest Pain Stated Complaint: LEFT SIDE CHEST PAIN Nursing Triage Note: PT AMB TO RM 6 WITH COMPLAINT OF LEFT SIDED CHEST PAIN. STATES STARTED LAST NIGHT, AND TOOK TUMS FOR IT WITH NO RELIEF. STATES PAIN IS INTERMITTENT AND BELOW LEFT BREAST. DESCRIBES A SHARP PAIN. STATES HAS HAD A COUGH BUT DENIES FEVER. Nursing Sepsis Screen: No Definite Risk Source: patient Exam Limitations: no limitations History of Present Illness Date Seen by Provider: Jun 23, 2019 Time Seen by Provider: 16:26 Initial Comments 39-year-old female who presents to the emergency room with complaints of left- sided substernal chest pain that started last night. She reports taking Tums when this pain started thinking that it was heartburn and had slight improvement of symptoms but they shortly returned. She reports that she did have influenza 2 weeks ago and has had a mild cough since then but denies fever. She reports that the cough is productive sometimes. Denies shortness of breath, nausea, vomiting, diarrhea. Pain is reproducible when chest wall is palpated. ASA po MANAGER COLLEGE: No NTG SL MANAGER COLLEGE: No Associated Symptoms: heartburn Allergies and Home Medications Allergies Coded Allergies: morphine (Unverified Allergy, Unknown, 03/09/16) Home Medications Chlorhexidine Gluconate 473 Ml Mouthwash, 15 ML MM BID Prescribed by: MICHELLE FABIAN on 11/09/18 194 Doxycycline Hyclate 100 Mg Tablet, 100 MG PO BID Prescribed by: DAVY CHERRY on 06/23/19 1705 Naproxen 500 Mg Tablet, 500 MG PO BID Prescribed by: HERO ERWIN on 07/18/16 0966 Patient Home Medication List Home Medication List Reviewed: Yes Review of Systems Review of Systems Constitutional: see HPI; No chills, No fever Respiratory: See HPI, Cough Cardiovascular: See HPI, Chest Pain All Other Systems Reviewed Negative Unless Noted: Yes Past Egutaru-Yvmgag-Lqsdbw Hx Past Med/Social Hx: Reviewed Nursing Past Med/Soc Hx Patient Social History Alcohol Use: Denies Use Recreational Drug Use: No Smoking Status: Never a Smoker Recent Foreign Travel: No Contact w/Someone Who Travel: No Recent Infectious Disease Expo: No Recent Hopitalizations: No Immunizations Up To Date Tetanus Booster (TDap): More than 5yrs Date of Influenza Vaccine: Jan 07, 2016 Seasonal Allergies Seasonal Allergies: No Past Medical History Surgeries: Yes Appendectomy, Section, Hysterectomy, Tubal Ligation Respiratory: Yes Pneumonia Cardiac: No Neurological: No 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 oz. 52.336995us; 18.00 BMI Method:Stated General Appearance: No Apparent Distress, WD/WN HEENT: PERRL/EOMI Respiratory: Lungs Clear, Normal Breath Sounds, No Accessory Muscle Use, No Respiratory Distress, Other (left-sided chest wall tenderness with palpation) Cardiovascular: Regular Rate, Rhythm, No Edema, No Gallop, No JVD, No Murmur, Normal Peripheral Pulses Gastrointestinal: Normal Bowel Sounds, No Organomegaly, No Pulsatile Mass, Non Tender Extremity: Normal Capillary Refill, No Pedal Edema Neurologic/Psychiatric: Alert, Oriented x3, No Motor/Sensory Deficits, Normal Mood/Affect Skin: Normal Color, Warm/Dry Progress/Results/Core Measures Results/Orders Lab Results Laboratory Tests Test 06/23/19 16:10 Range/Units White Blood Count 7.0 4.3-11.0 10^3/uL Red Blood Count 4.73 4.35-5.85 10^6/uL Hemoglobin 13.6 11.5-16.0 G/DL Hematocrit 41 35-52 % Mean Corpuscular Volume 87 80-99 FL Mean Corpuscular Hemoglobin 29 25-34 PG Mean Corpuscular Hemoglobin Concent 33 32-36 G/DL Red Cell Distribution Width 12.9 10.0-14.5 % Platelet Count 244 130-400 10^3/uL Mean Platelet Volume 11.8 H 7.4-10.4 FL Neutrophils (%) (Auto) 59 42-75 % Lymphocytes (%) (Auto) 31 12-44 % Monocytes (%) (Auto) 7 0-12 % Eosinophils (%) (Auto) 2 0-10 % Basophils (%) (Auto) 0 0-10 % Neutrophils # (Auto) 4.2 1.8-7.8 X 10^3 Lymphocytes # (Auto) 2.2 1.0-4.0 X 10^3 Monocytes # (Auto) 0.5 0.0-1.0 X 10^3 Eosinophils # (Auto) 0.2 0.0-0.3 10^3/uL Basophils # (Auto) 0.0 0.0-0.1 10^3/uL Prothrombin Time 13.3 12.2-14.7 SEC INR Comment 1.0 0.8-1.4 Activated Partial Thromboplast Time 30 24-35 SEC D-Dimer 0.28 0.00-0.49 UG/ML Sodium Level 139 135-145 MMOL/L Potassium Level 3.6 3.6-5.0 MMOL/L Chloride Level 105 98-107 MMOL/L Carbon Dioxide Level 25 21-32 MMOL/L Anion Gap 9 5-14 MMOL/L Blood Urea Nitrogen 10 7-18 MG/DL Creatinine 0.73 0.60-1.30 MG/DL Estimat Glomerular Filtration Rate > 60 BUN/Creatinine Ratio 14 Glucose Level 78 70-105 MG/DL Calcium Level 8.9 8.5-10.1 MG/DL Corrected Calcium 8.5-10.1 MG/DL Total Bilirubin 0.3 0.1-1.0 MG/DL Aspartate Amino Transf (AST/SGOT) 26 5-34 U/L Alanine Aminotransferase (ALT/SGPT) 13 0-55 U/L Alkaline Phosphatase 92 40-136 U/L Myoglobin 24.8 10.0-92.0 NG/ML Troponin I < 0.028 <0.028 NG/ML Total Protein 7.9 6.4-8.2 GM/DL Albumin 4.6 H 3.2-4.5 GM/DL Lipase 53 8-78 U/L My Orders Orders - BERNOT,DAVY Ekg Tracing (06/23/19 16:13) Cbc With Automated Diff (06/23/19 16:16) Magnesium (06/23/19 16:16) Chest 1 View, Ap/Pa Only (06/23/19 16:16) Comprehensive Metabolic Panel (06/23/19 16:16) Myoglobin Serum (06/23/19 16:16) Protime With Inr (06/23/19 16:16) Partial Thromboplastin Time (06/23/19 16:16) O2 (06/23/19 16:16) Monitor-Rhythm Ecg Trace Only (06/23/19 16:16) Lipid Panel (06/24/19 06:00) Ed Iv/Invasive Line Start (06/23/19 16:16) Lipase (06/23/19 16:16) Fibrin Degradation Products (06/23/19 16:16) Troponin I (06/23/19 16:16) Aspirin Chewable Tablet (Baby Aspirin Ch (06/23/19 16:30) Medications Given in ED Current Medications Medications Dose Ordered Sig/Jey Route Start Time Stop Time Status Last Admin Dose Admin Aspirin 324 mg ONCE ONCE PO 06/23/19 16:30 06/23/19 16:31 DC 06/23/19 16:47 324 MG Vital Signs/I&O 06/23/19 06/23/19 16:06 16:15 Temp 36.7 Pulse 75 Resp 15 B/P (MAP) 141/83 (102) Pulse Ox 100 O2 Delivery Room Air Room Air Blood Pressure Mean: 102 Progress Progress Note : Time: 17:15 Progress Note I have seen and evaluated the patient. I've informed her of her laboratory and imaging studies. I believe that her atypical pneumonia as a result of her influenza that she experienced 2 weeks ago. She agrees with plan of care, plans for discharge, return precautions were given. Departure Impression Primary Impression: Atypical pneumonia Disposition: 01 HOME, SELF-CARE Condition: Stable/Unchanged Departure-Patient Inst. Decision time for Depature: 17:04 Referrals: NO,LOCAL PHYSICIAN (PCP) Primary Care Physician [facility] (Family) Primary Care Physician Patient Instructions: LOCAL PHYSICIAN LIST, Pneumonia, Adult (DC) Add. Discharge Instructions: Take antibiotic as directed. Call to schedule an appointment with a doctor of your choosing to follow-up with within 1 week for recheck. Return back to emergency room for worsening symptoms or concerns as needed. All discharge instructions reviewed with patient and/or family. Voiced understanding. Scripts Doxycycline Hyclate (Doxycycline Hyclate) 100 Mg Tablet 100 MG PO BID for 7 Days, #14 TAB 0 Refills Prov: DAVY CHERRY 06/23/19 DAVY CHERRY Jun 23, 2019 16:29
[2019-06-23] MEDS ORDERED: ASPIRIN 81 MG CHEW (CHILDREN'S ASA) PO ONE (16:30)
[2019-06-23 16:31] LABS: PROTHROMBIN TIME PATIENT 13.3 SEC (12.2-14.7)
[2019-06-23 16:42] LABS: ALANINE AMINOTRANSFERASE 13 U/L (0-55); ALBUMIN 4.6 GM/DL (3.2-4.5); ALKALINE PHOSPHATASE 92 U/L (40-136); BILIRUBIN,TOTAL 0.3 MG/DL (0.1-1.0); BUN/CREATININE RATIO 14; CALCIUM 8.9 MG/DL (8.5-10.1); CARBON DIOXIDE 25 MMOL/L (21-32); CHLORIDE 105 MMOL/L (98-107); CREATININE SERUM 0.73 MG/DL (0.60-1.30); GFR ESTIMATED > 60; GLUCOSE 78 MG/DL (70-105); LIPASE 53 U/L (8-78); POTASSIUM 3.6 MMOL/L (3.6-5.0); SODIUM 139 MMOL/L (135-145); TOTAL PROTEIN 7.9 GM/DL (6.4-8.2)
--- NOTE | 2019-06-23 16:46 | Diagnostic Imaging Report ---
INDICATION: Chest pain. TECHNIQUE: Frontal chest obtained at 4:35 p.m. FINDINGS: Heart and mediastinal silhouette are normal in appearance. There are new patchy bibasilar interstitial infiltrates, suspicious for pneumonia. There is no pneumothorax or pleural fluid. IMPRESSION: There are new bilateral patchy bibasilar interstitial infiltrates which may represent atypical pneumonia. Correlate with clinical findings. Dictated by: Dictated on workstation # [id number]
[2019-06-23] MEDS ORDERED: DOXY100T2 PO (17:05)
[2019-06-23 17:15] LABS: MAGNESIUM 2.6 MG/DL (1.6-2.4)
[2019-06-23 17:22] VITALS: BP 106/68
== END 2019-06-23 17:23 | disposition home or self-care (01) ==
LOC: EDUNIT# 16:00 → ER 16:05
DX: J18.9 Pneumonia, unspecified organism (principal); Z88.5 Allergy status to narcotic agent
CPT/HCPCS: 36415; 71045; 80053; 83690; 83735; 83874; 84484; 85025; 85379; 85610; 85730; 93005; 93041

== ENCOUNTER 2019-07-09 23:18 | Emergency (ER) | payer OTHER ==
[~2019-07-09] VITALS: Ht 167 cm; Wt 53.0 kg
[~2019-07-09 23:18] MED LIST changes: +DOXY100T2 PO
[2019-07-09] MEDS ORDERED: methylPREDNISolone 125 MG (Solu-MEDROL) VIAL IV STA (23:38)
[2019-07-09] MEDS ORDERED: RT-ALBUTEROL/IPRATROPIUM 3 ML (DUONEB) VIAL INH ONE (23:45)
--- NOTE | 2019-07-09 23:46 | ED EENT ---
History of Present Illness General Chief Complaint: Cough/Cold/Flu Symptoms Stated Complaint: COUGH,SOB Source: patient Exam Limitations: no limitations History of Present Illness Date Seen by Provider: Jul 09, 2019 Time Seen by Provider: 23:26 Initial Comments Patient is diaphoretic conveyance from home with chief complaint of typical feeling of swelling of her throat and difficulty with fluids for the past 1-2 days progressively worsening. She had this once before when she was . One month ago she was diagnosed with strep throat and influenza and was treated appropriately on antibiotics. He was also diagnosed after presenting to the ER a few weeks ago with chest pain that she had bilateral pneumonia. She says she's done a course of antibiotics and went to see her primary care doctor follow-up in the ED for an extended course of cefdinir which she is on day 3 of. She is not really having significant shortness of breath and says she has residual chest pain 3 out of 10 on deep inspiration or cough. Her cough is nonproductive. She has had fevers throughout the past month but none today. She is mostly concerned about swelling in her throat. She has not been tested for COVID 19. Her first course of throat swelling was thought to be in relationship to morphine and she was given after a . She received antihistamines and only stayed 2 days in the hospital after her . At that time she did not require intubation. Allergies and Home Medications Allergies Coded Allergies: morphine (Unverified Allergy, Unknown, 03/09/16) Home Medications Chlorhexidine Gluconate 473 Ml Mouthwash, 15 ML MM BID Prescribed by: MICHELLE FABIAN on 11/09/181941 Doxycycline Hyclate 100 Mg Tablet, 100 MG PO BID Prescribed by: DAVY CHERRY on 06/23/19 1705 Naproxen 500 Mg Tablet, 500 MG PO BID Prescribed by: HERO ERWIN on 07/18/16 8258 Patient Home Medication List Home Medication List Reviewed: Yes Review of Systems Review of Systems Constitutional: No chills, No fever, No malaise Eyes: Denies Blindness, Denies Blurred Vision Ears: Denies Dizziness Nose: denies clots, denies congestion Mouth: denies clots, denies loose teeth Throat: see HPI; denies pain; swelling; denies neck stiffness; hoarse; denies aphonia, denies muffled; painful swallowing, difficulty with fluids Respiratory: No cough Cardiovascular: No chest pain, No palpitations Gastrointestinal: No abdominal pain, No constipation, No diarrhea Past Wkkwlan-Hozest-Negwlb Hx Patient Social History Alcohol Use: Denies Use Recreational Drug Use: No Smoking Status: Never a Smoker Recent Hopitalizations: No Immunizations Up To Date Tetanus Booster (TDap): More than 5yrs Date of Influenza Vaccine: Jan 07, 2016 Seasonal Allergies Seasonal Allergies: No Past Medical History Surgeries: Yes Appendectomy, Section, Hysterectomy, Tubal Ligation Respiratory: Yes Pneumonia Cardiac: No Neurological: No Reproductive Disorders: No [employer] History: Hysterectomy Gastrointestinal: No Musculoskeletal: No Endocrine: Yes (STATES THEY ARE TESTING FOR LUPUS) Cancer: No Psychosocial: No Integumentary: No Blood Disorders: No Physical Exam Vital Signs Vital Signs - First Documented 07/09/19 23:39 Temp 36.8 Pulse 72 Resp 20 B/P (MAP) 116/77 (90) Pulse Ox 99 O2 Delivery Room Air Height, Weight, BMI Height: 5'6.00" Weight: 115lbs. oz. [id number]; 18.00 BMI Method:Stated General Appearance: WD/WN, no apparent distress Eyes: bilateral eye normal inspection, bilateral eye PERRL, bilateral eye EOMI Ears: bilateral ear auricle normal, bilateral ear canal normal, bilateral ear TM normal Nose: normal inspection; No active bleeding, No discharge Mouth/Throat: normal mouth inspection, pharynx normal; No dental tenderness Neck: non-tender, full range of motion, supple, normal inspection Cardiovascular: normal peripheral pulses, regular rate, rhythm Respiratory: lungs clear, no respiratory distress, no accessory muscle use, decreased breath sounds Gastrointestinal: normal bowel sounds, non tender, soft Neurologic/Psychiatric: alert, normal mood/affect, oriented x 3 Skin: normal color, warm/dry Progress/Results/Core Measures Results/Orders Lab Results Laboratory Tests Test 07/09/19 23:35 Range/Units White Blood Count 6.8 4.3-11.0 10^3/uL Red Blood Count 4.46 4.35-5.85 10^6/uL Hemoglobin 13.0 11.5-16.0 G/DL Hematocrit 39 35-52 % Mean Corpuscular Volume 86 80-99 FL Mean Corpuscular Hemoglobin 29 25-34 PG Mean Corpuscular Hemoglobin Concent 34 32-36 G/DL Red Cell Distribution Width 13.0 10.0-14.5 % Platelet Count 186 130-400 10^3/uL Mean Platelet Volume 12.1 H 7.4-10.4 FL Neutrophils (%) (Auto) 53 42-75 % Lymphocytes (%) (Auto) 37 12-44 % Monocytes (%) (Auto) 8 0-12 % Eosinophils (%) (Auto) 2 0-10 % Basophils (%) (Auto) 0 0-10 % Neutrophils # (Auto) 3.6 1.8-7.8 X 10^3 Lymphocytes # (Auto) 2.5 1.0-4.0 X 10^3 Monocytes # (Auto) 0.6 0.0-1.0 X 10^3 Eosinophils # (Auto) 0.1 0.0-0.3 10^3/uL Basophils # (Auto) 0.0 0.0-0.1 10^3/uL D-Dimer 0.33 0.00-0.49 UG/ML Sodium Level 139 135-145 MMOL/L Potassium Level 3.5 L 3.6-5.0 MMOL/L Chloride Level 105 98-107 MMOL/L Carbon Dioxide Level 23 21-32 MMOL/L Anion Gap 11 5-14 MMOL/L Blood Urea Nitrogen 9 7-18 MG/DL Creatinine 0.81 0.60-1.30 MG/DL Estimat Glomerular Filtration Rate > 60 BUN/Creatinine Ratio 11 Glucose Level 92 70-105 MG/DL Calcium Level 9.1 8.5-10.1 MG/DL Corrected Calcium 8.8 8.5-10.1 MG/DL Total Bilirubin 0.2 0.1-1.0 MG/DL Aspartate Amino Transf (AST/SGOT) 22 5-34 U/L Alanine Aminotransferase (ALT/SGPT) 11 0-55 U/L Alkaline Phosphatase 81 40-136 U/L C-Reactive Protein High Sensitivity 0.03 0.00-0.50 MG/DL Total Protein 7.8 6.4-8.2 GM/DL Albumin 4.4 3.2-4.5 GM/DL My Orders Orders - RUI,MICHELLE J Chest 1 View, Ap/Pa Only (07/09/19 23:38) Cbc With Automated Diff (07/09/19 23:38) Comprehensive Metabolic Panel (07/09/19 23:38) Fibrin Degradation Products (07/09/19 23:38) Hs C Reactive Protein (07/09/19 23:38) Ed Iv/Invasive Line Start (07/09/19 23:38) Albuterol/Ipra Inhalation Soln (Duoneb I (07/09/19 23:45) Methylprednisolone Sod Succ (Solu-Medrol (07/09/19 23:38) Svn Small Volume Nebulizer (07/09/19 23:38) Diphenhydramine Injection (Benadryl Inje (07/10/19 00:00) Famotidine Injection (Pepcid Injection) (07/10/19 00:00) Loratadine Tablet (Claritin Tablet) (07/10/19 00:00) Medications Given in ED Current Medications Medications Dose Ordered Sig/Jey Route Start Time Stop Time Status Last Admin Dose Admin Albuterol/ Ipratropium 3 ml ONCE ONCE INH 07/09/19 23:45 07/09/19 23:46 DC 07/10/19 00:02 3 ML Diphenhydramine HCl 25 mg ONCE ONCE IVP 07/10/19 00:00 07/10/19 00:01 DC 07/10/19 00:12 25 MG Famotidine 20 mg ONCE ONCE IVP 07/10/19 00:00 07/10/19 00:01 DC 07/10/19 00:12 20 MG Loratadine 10 mg ONCE ONCE PO 07/10/19 00:00 07/10/19 00:01 DC 07/10/19 00:12 10 MG Vital Signs/I&O 07/09/19 07/09/19 07/10/19 23:39 23:39 00:02 Temp 36.8 Pulse 72 Resp 20 B/P (MAP) 116/77 (90) Pulse Ox 99 97 O2 Delivery Room Air Room Air Room Air Progress Progress Note #1: Progress Note We have placed her in isolation because of her recent history of pneumonia along however it would seem like she is improving on the outpatient side for this. We will get a chest x-ray and some basic labs to make sure that there is no signs of her pneumonia is getting worse. Her main concern seems to be the throat sw elling and possible angioedema. We have not been able to identify a source of her allergen area going to give her a round of Benadryl, Pepcid, loratadine and Solu-Medrol. We'll give her breathing treatment see if that helps anything with her chest pain. Progress Note #2: Time: 00:58 Progress Note Patient did feel some improvement after the breathing treatment in her chest tightness. The patient also feels significant improvement and the tingling on the back of her throat and is not having difficulty breathing or swallowing fluids now. Plan to put her out with a albuterol MDI prescription as well as instructions to take Benadryl, Pepcid and loratadine. We will probably not continue the steroids. Diagnostic Imaging Diagonstic Imaging: Xray Plain Films/CT/US/NM/MRI: chest Comments No evidence of significant chest infiltrate or other acute cardiopulmonary processes noted on one view chest x-ray. Compared to recent chest x-ray. Reviewed: Reviewed by Me Departure Impression Primary Impression: Angioedema Qualified Codes: T78.3XXA - Angioneurotic edema, initial encounter Additional Impression: Bronchospasm, acute Disposition: HOME, SELF-CARE Condition: Improved Departure-Patient Inst. Decision time for Depature: 01:00 Referrals: NO,LOCAL PHYSICIAN (PCP) Primary Care Physician [facility] (Family) Primary Care Physician Patient Instructions: Angioedema (DC), BRONCHOSPASM-ADULT Add. Discharge Instructions: 2 puffs of albuterol through the spacer every 4 hours as needed for coughing, tight this in the chest or wheezing. Take loratadine 10 mg daily for the next week. Pepcid 20 mg twice a day for the next week. Benadryl 25 mg every 6 hours as needed for breakthrough itching in the throat, difficulty swallowing or tightness. If these medications do not help or you are having difficulty breathing then you need to return to the ER immediately. All discharge instructions reviewed with patient and/or family. Voiced understanding. Scripts Inhaler, Assist Devices (Space Chamber Plus) 1 Each Spacer EACH MC for Wheezing, #1 Prov: MICHELLE FABIAN 07/10/19 Albuterol Sulfate (PROAIR HFA) 1 Puff Puff 2 PUFF IH Q4H PRN for WHEEZING, #1 EA 0 Refills 1 PUFF = 90 MCG Prov: MICHELLE FABIAN 07/10/19 MICHELLE FABIAN Jul 09, 2019 23:46
[2019-07-10] MEDS ORDERED: FAMOTIDINE 20MG/2ML IV (PEPCID) IVP ONE
[2019-07-10] MEDS ORDERED: LORATADINE (CLARITIN) 10 MG TAB PO ONE
[2019-07-10] MEDS ORDERED: diphenhydrAMINE 50 MG/ML INJ (BENADRYL) IVP ONE
--- NOTE | 2019-07-10 00:02 | NUR ---
Patient is resting comfortably at this time, no changes in condition.
[2019-07-10 00:12] LABS: BASOPHILS % (AUTO) 0 % (0-10); EOSINOPHILS # (AUTO) 0.1 10^3/uL (0.0-0.3); EOSINOPHILS % (AUTO) 2 % (0-10); HEMATOCRIT 39 % (35-52); LYMPHOCYTES # (AUTO) 2.5 X 10^3 (1.0-4.0); LYMPHOCYTES % (AUTO) 37 % (12-44); MEAN CORPUSCULAR HEMOGLOBIN 29 PG (25-34); MEAN CORPUSCULAR HGB CONC 34 G/DL (32-36); MEAN CORPUSCULAR VOLUME 86 FL (80-99); MEAN PLATELET VOLUME 12.1 FL (7.4-10.4); MONOCYTES # (AUTO) 0.6 X 10^3 (0.0-1.0); MONOCYTES % (AUTO) 8 % (0-12); NEUTROPHILS # (AUTO) 3.6 X 10^3 (1.8-7.8); NEUTROPHILS % (AUTO) 53 % (42-75); PLATELET COUNT 186 10^3/uL (130-400); WHITE BLOOD COUNT 6.8 10^3/uL (4.3-11.0)
--- NOTE | 2019-07-10 00:34 | NUR ---
Patient advises an improvement in swallowing post medication administration.
[2019-07-10 00:39] LABS: ALANINE AMINOTRANSFERASE 11 U/L (0-55); ALBUMIN 4.4 GM/DL (3.2-4.5); ALKALINE PHOSPHATASE 81 U/L (40-136); BILIRUBIN,TOTAL 0.2 MG/DL (0.1-1.0); BUN/CREATININE RATIO 11; CALCIUM 9.1 MG/DL (8.5-10.1); CARBON DIOXIDE 23 MMOL/L (21-32); CHLORIDE 105 MMOL/L (98-107); CREATININE SERUM 0.81 MG/DL (0.60-1.30); GFR ESTIMATED > 60; GLUCOSE 92 MG/DL (70-105); POTASSIUM 3.5 MMOL/L (3.6-5.0); SODIUM 139 MMOL/L (135-145); TOTAL PROTEIN 7.8 GM/DL (6.4-8.2)
[2019-07-10 00:59] VITALS: BP 110/60
[2019-07-10] MEDS ORDERED: RT-ALBUINH IH (01:02)
[2019-07-10] MEDS ORDERED: INHA1SPA24 MC (01:04)
--- NOTE | 2019-07-10 07:26 | Diagnostic Imaging Report ---
INDICATION: Shortness of air and cough. COMPARISON: 05/01/2019 and 04/04/2016 FINDINGS: Single frontal radiograph view of the chest was obtained and demonstrates normal cardiac silhouette and pulmonary vasculature. Scattered patchy pulmonary parenchymal opacities are again identified bilaterally. Overall, aeration appears stable compared to prior exam. There is no large effusion or pneumothorax. Osseous structures show no gross acute abnormalities. IMPRESSION:. Stable exam of the chest showing scattered patchy parenchymal opacities, which appear to be a chronic change. Correlation with CT may be of benefit and could be performed on nonemergent basis. Dictated by: Dictated on workstation # [id number]
== END 2019-07-10 01:09 | disposition home or self-care (01) ==
LOC: EDUNIT# 23:18 → ER 23:21
DX: T78.3XXA Angioneurotic edema, initial encounter (principal); J98.01 Acute bronchospasm; Z88.5 Allergy status to narcotic agent
CPT/HCPCS: 36415; 71045; 80053; 85025; 85379; 86141; 94640

== ENCOUNTER 2019-08-01 14:52 | Emergency (ER) | payer MEDICARE ==
[~2019-08-01] VITALS: Ht 162 cm; Wt 53.0 kg
[~2019-08-01 14:52] MED LIST changes: +INHA1SPA24 MC; +RT-ALBUINH IH
--- OUTSIDE RECORDS SUMMARY | 2019-08-01 14:58 | XMS REPORT | Continuity of Care Document ---
Demographics Preferred Language Unknown Marital Status Unknown Hoahaoism Affiliation Unknown Race Unknown Ethnic Group Unknown Author Organization Unknown Address Unknown Phone Unavailable Allergies Active Description Code Type Severity Reaction Onset Reported/Identified Relationship to Patient Clinical Status Yes morphine [id number] Drug Allergy Unknown N/A 03/09/2016 Medications There is no data. Problems Date Dx Coded Attending Type Code Diagnosis Diagnosed By 02/14/2016 RUBI NÚÑEZ DO Ot R05 COUGH 02/14/2016 RUBI NÚÑEZ DO M Ot R05 COUGH 02/15/2016 RUBI NÚÑEZ DO M Ot R05 COUGH 03/08/2016 RUBI NÚÑEZ DO M Ot R05 COUGH 03/09/2016 RUBI NÚÑEZ DO M Ot R05 COUGH 03/09/2016 ALFREDO CLEMENT DRYWALL STRIPPER Ot J40 BRONCHITIS, NOT SPECIFIED ACUTE OR CH 03/09/2016 ALFREDO CLEMENT DRYWALL STRIPPER Ot R05 COUGH 03/12/2016 ALFREDO CLEMENT DRYWALL STRIPPER Ot J40 BRONCHITIS, NOT SPECIFIED ACUTE OR CH 03/12/2016 ALFREDO CLEMENT DRYWALL STRIPPER Ot R05 COUGH 03/12/2016 RUBI NÚÑEZ DO M Ot R05 COUGH 03/12/2016 RUBI NÚÑEZ DO M Ot R05 COUGH 03/13/2016 PILAR NÚÑEZ DOSON M Ot R05 COUGH 03/20/2016 NIYAPILAR SANFORD DOSON M Ot R05 COUGH 03/30/2016 PILAR NÚÑEZ DOSON M Ot R05 COUGH 04/05/2016 JENELLE FOLEY APRN Ot J18.9 PNEUMONIA, UNSPECIFIED ORGANISM 04/11/2016 RUBI NÚÑEZ DO M Ot R05 COUGH 04/27/2016 JENELLE FOLEY APRN Ot J18.9 PNEUMONIA, UNSPECIFIED ORGANISM 05/09/2016 JENELLE FOLEY APRN Ot J18.9 PNEUMONIA, UNSPECIFIED ORGANISM 05/21/2016 MADL, DEAN L DIE FORGER Ot N63 UNSPECIFIED LUMP IN BREAST 05/22/2016 MADL, DEAN L DIE FORGER Ot N63 UNSPECIFIED LUMP IN BREAST 05/22/2016 MADL, DEAN L DIE FORGER Ot M25.50 PAIN IN UNSPECIFIED JOINT 05/22/2016 MADL, DEAN L DIE FORGER Ot N63 UNSPECIFIED LUMP IN BREAST 05/22/2016 MADL, DEAN L DIE FORGER Ot N64 .4 MASTODYNIA 05/27/2016 MADL, DEAN L DIE FORGER Ot M25.50 PAIN IN UNSPECIFIED JOINT 05/27/2016 MADL, DEAN L DIE FORGER Ot N63 UNSPECIFIED LUMP IN BREAST 05/27/2016 MADL, DEAN L DIE FORGER Ot N64 .4 MASTODYNIA 07/12/2016 MADL, DEAN L DIE FORGER Ot M25.50 PAIN IN UNSPECIFIED JOINT 07/12/2016 MADL, DEAN L DIE FORGER Ot N63 UNSPECIFIED LUMP IN BREAST 07/12/2016 MADL, DEAN L DIE FORGER Ot N64 .4 MASTODYNIA 07/18/2016 RUBI NÚÑEZ DO Ot R05 COUGH 07/18/2016 RUBI NÚÑEZ DO Ot R05 COUGH 07/18/2016 JENELLE FOLEY APRN Ot J18.9 PNEUMONIA, UNSPECIFIED ORGANISM 07/18/2016 MADL, DEAN L DIE FORGER Ot M25.50 PAIN IN UNSPECIFIED JOINT 07/18/2016 MADL, DEAN L DIE FORGER Ot N63 UNSPECIFIED LUMP IN BREAST 07/18/2016 MADL, DEAN L DIE FORGER Ot N64 .4 MASTODYNIA 07/18/2016 RUBI NÚÑEZ DO Ot R05 COUGH 07/18/2016 RUBI NÚÑEZ DO Ot R05 COUGH 07/18/2016 JENELLE FOLEY APRN Ot J18.9 PNEUMONIA, UNSPECIFIED ORGANISM 07/18/2016 MADLPARKERA L DIE FORGER Ot M25.50 PAIN IN UNSPECIFIED JOINT 07/18/2016 MADL, DEAN L DIE FORGER Ot N63 UNSPECIFIED LUMP IN BREAST 07/18/2016 MADL, DEAN L DIE FORGER Ot N64 .4 MASTODYNIA 07/18/2016 HERO ERWIN DO Ot S93.401 A SPRAIN OF UNSPECIFIED LIGAMENT OF RIGHT 07/18/2016 HERO ERWIN DO Ot S99.911 A UNSPECIFIED INJURY OF RIGHT ANKLE, INITI 07/18/2016 HERO ERWIN DO Ot X50.9XX A OTHER AND UNSPECIFIED OVREXRTN OR STRNOU 07/18/2016 HERO ERWIN DO Ot Y92.[address] OF OCCURRENCE OF 07/18/2016 HERO ERWIN DO Ot Y99.8 OTHER EXTERNAL CAUSE STATUS 07/20/2016 HERO ERWIN DO Ot S93.401 A SPRAIN OF UNSPECIFIED LIGAMENT OF RIGHT 07/20/2016 HERO ERWIN DO Ot S99.911 A UNSPECIFIED INJURY OF RIGHT ANKLE, INITI 07/20/2016 HERO ERWIN DO Ot X50.9XX A OTHER AND UNSPECIFIED OVREXRTN OR STRNOU 07/20/2016 HERO ERWIN DO Ot Y92.[address] OF OCCURRENCE OF 07/20/2016 HERO ERWIN DO Ot Y99.8 OTHER EXTERNAL CAUSE STATUS 07/26/2016 MADL, DEAN L DIE FORGER Ot M25.50 PAIN IN UNSPECIFIED JOINT 07/26/2016 MADL, DEAN L DIE FORGER Ot N63 UNSPECIFIED LUMP IN BREAST 07/26/2016 MADL, DEAN L DIE FORGER Ot N64 .4 MASTODYNIA 07/26/2016 RUBI NÚÑEZ DO Ot R05 COUGH 07/26/2016 RUBI NÚÑEZ DO Ot R05 COUGH 07/26/2016 JENELLE FOLEY APRN Ot J18.9 PNEUMONIA, UNSPECIFIED ORGANISM 07/26/2016 MADL, DEAN L DIE FORGER Ot M25.50 PAIN IN UNSPECIFIED JOINT 07/26/2016 MADL, DEAN L DIE FORGER Ot N63 UNSPECIFIED LUMP IN BREAST 07/26/2016 MADL, DEAN L DIE FORGER Ot N64 .4 MASTODYNIA 07/26/2016 MADL, DEAN L DIE FORGER Ot M25.50 PAIN IN UNSPECIFIED JOINT 07/26/2016 MADL, DEAN L DIE FORGER Ot N63 UNSPECIFIED LUMP IN BREAST 07/26/2016 MADL, DEAN L DIE FORGER Ot N64 .4 MASTODYNIA 08/30/2016 RUBI NÚÑEZ DO Ot R05 COUGH 08/30/2016 RUBI NÚÑEZ DO Ot R05 COUGH 08/30/2016 JENELLE FOLEY APRN Ot J18.9 PNEUMONIA, UNSPECIFIED ORGANISM 08/30/2016 MADLDEAN L DIE FORGER Ot M25.50 PAIN IN UNSPECIFIED JOINT 08/30/2016 MADLJOSEDEAN L DIE FORGER Ot N63 UNSPECIFIED LUMP IN BREAST 08/30/2016 MADLJOSEDEAN L DIE FORGER Ot N64 .4 MASTODYNIA 06/12/2018 RUBI NÚÑEZ DO Ot R05 COUGH 06/12/2018 RUBI NÚÑEZ DO Ot R05 COUGH 06/12/2018 JENELLE FOLEY APRN Ot J18.9 PNEUMONIA, UNSPECIFIED ORGANISM 06/12/2018 MADLPARKERA L DIE FORGER Ot M25.50 PAIN IN UNSPECIFIED JOINT 06/12/2018 MADLJOSEDEAN L DIE FORGER Ot N63 UNSPECIFIED LUMP IN BREAST 06/12/2018 VANESSALJOSEDEAN L DIE FORGER Ot N64 .4 MASTODYNIA 06/12/2018 RUBI NÚÑEZ DO Ot R05 COUGH 06/12/2018 RUBI NÚÑEZ DO Ot R05 COUGH 06/12/2018 JENELLE FOLEY APRN Ot J18.9 PNEUMONIA, UNSPECIFIED ORGANISM 06/12/2018 MADLDEAN L DIE FORGER Ot M25.50 PAIN IN UNSPECIFIED JOINT 06/12/2018 VANESSALJOSEDEAN L DIE FORGER Ot N63 UNSPECIFIED LUMP IN BREAST 06/12/2018 VANESSAL DEAN L DIE FORGER Ot N64 .4 MASTODYNIA 06/12/2018 MINERVA GROVESP Ot J06.9 ACUTE UPPER RESPIRATORY INFECTION, UNSPE 06/12/2018 MINERVA GROVES DIE FORGER Ot J44.9 CHRONIC OBSTRUCTIVE PULMONARY DISEASE, U 06/12/2018 MINERVA GORVESP Ot R11.2 NAUSEA WITH VOMITING, UNSPECIFIED 06/12/2018 MINERVA GROVES DIE FORGER Ot Z88.5 ALLERGY STATUS TO NARCOTIC AGENT STATUS 06/12/2018 MINERVA GROVES DIE FORGER Ot Z90.49 ACQUIRED ABSENCE OF OTHER SPECIFIED PART 06/12/2018 MINERVA GROVES DIE FORGER Ot Z90.710 ACQUIRED ABSENCE OF BOTH CERVIX AND UTER 06/12/2018 MINERVA GROVES DIE FORGER Ot Z98.51 TUBAL LIGATION STATUS 06/12/2018 MINERVA GROVES DIE FORGER Ot Z98.890 OTHER SPECIFIED POSTPROCEDURAL STATES 06/13/2018 NIYA GARCIA RUBI M Ot R05 COUGH 06/13/2018 NIYA RUBI Emmanuel Ot R05 COUGH 06/13/2018 JENELLE FOLEY APRN Ot J18.9 PNEUMONIA, UNSPECIFIED ORGANISM 06/13/2018 MADLDEAN DIE FORGER Ot M25.50 PAIN IN UNSPECIFIED JOINT 06/13/2018 MADLPARKERA L DIE FORGER Ot N63 UNSPECIFIED LUMP IN BREAST 06/13/2018 MADLPARKERA L DIE FORGER Ot N64 .4 MASTODYNIA 11/09/2018 MICHELLE FABIAN MD Ot K14. 0 GLOSSITIS 11/09/2018 MICHELLE FABIAN MD Ot K14. 8 OTHER DISEASES OF TONGUE 11/09/2018 MICHELLE FABIAN MD Ot Z88. 5 ALLERGY STATUS TO NARCOTIC AGENT STATUS 11/09/2018 MICHELLE FABIAN MD Ot Z90.710 ACQUIRED ABSENCE OF BOTH CERVIX AND UTER 11/09/2018 MIHCELLE FABIAN MD Ot Z90. 89 ACQUIRED ABSENCE OF OTHER ORGANS 11/09/2018 MICHELLE FABIAN MD Ot Z98. 51 TUBAL LIGATION STATUS 05/01/2019 ALFREDO CLEMENT APRN Ot R10.30 LOWER ABDOMINAL PAIN, UNSPECIFIED 05/01/2019 ALFREDO CLEMENT APRN Ot Z88 .5 ALLERGY STATUS TO NARCOTIC AGENT STATUS 05/01/2019 ALFREDO CLEMENT APRN Ot Z90.49 ACQUIRED ABSENCE OF OTHER SPECIFIED PART 05/01/2019 ALFREDO CLEMENT APRN Ot Z90.711 ACQUIRED ABSENCE OF UTERUS WITH REMAININ 05/01/2019 ALFREDO CLEMENT APRN Ot Z98.51 TUBAL LIGATION STATUS 05/04/2019 ALFREDO CLEMENT APRN Ot R10.30 LOWER ABDOMINAL PAIN, UNSPECIFIED 05/04/2019 ALFREDO CLEMENT APRN Ot Z88 .5 ALLERGY STATUS TO NARCOTIC AGENT STATUS 05/04/2019 ALFREDO CLEMENT APRN Ot Z90.49 ACQUIRED ABSENCE OF OTHER SPECIFIED PART 05/04/2019 ALRFEDO CLEMENT APRN Ot Z90.711 ACQUIRED ABSENCE OF UTERUS WITH REMAININ 05/04/2019 ALFREDO CLEMENT DRYWALL STRIPPER Ot Z98.51 TUBAL LIGATION STATUS 05/09/2019 ALFREDO CLEMENT DRYWALL STRIPPER Ot R10.30 LOWER ABDOMINAL PAIN, UNSPECIFIED 05/09/2019 ALFREDO CLEMENT DRYWALL STRIPPER Ot Z88 .5 ALLERGY STATUS TO NARCOTIC AGENT STATUS 05/09/2019 ALFREDO CLEMENT DRYWALL STRIPPER Ot Z90.49 ACQUIRED ABSENCE OF OTHER SPECIFIED PART 05/09/2019 ALFREDO CLEMENT DRYWALL STRIPPER Ot Z90.711 ACQUIRED ABSENCE OF UTERUS WITH REMAININ 05/09/2019 ALFREDO CLEMENT DRYWALL STRIPPER Ot Z98.51 TUBAL LIGATION STATUS 06/23/2019 DAVY CHERRY Ot J18.9 PNEUMONIA, UNSPECIFIED ORGANISM 06/23/2019 DAVY CHERRY Ot R07.89 OTHER CHEST PAIN 06/23/2019 DAVY CHERRY Ot Z88.5 ALLERGY STATUS TO NARCOTIC AGENT STATUS 06/24/2019 RUBI NÚÑEZ DO Ot R05 COUGH 06/24/2019 RUBI NÚÑEZ DO Ot R05 COUGH 06/24/2019 JENELLE FOLEY APRN Ot J18.9 PNEUMONIA, UNSPECIFIED ORGANISM 06/24/2019 MADL, DEAN L DIE FORGER Ot M25.50 PAIN IN UNSPECIFIED JOINT 06/24/2019 MADL, DEAN L DIE FORGER Ot N63 UNSPECIFIED LUMP IN BREAST 06/24/2019 MADL, DEAN L DIE FORGER Ot N64 .4 MASTODYNIA 06/25/2019 DAVY CHERRY Ot J18.9 PNEUMONIA, UNSPECIFIED ORGANISM 06/25/2019 SHEILA CHERRYIS Ot R07.89 OTHER CHEST PAIN 06/25/2019 SHEILA CHERRYIS Ot Z88.5 ALLERGY STATUS TO NARCOTIC AGENT STATUS 06/25/2019 RUBI NÚÑEZ DO M Ot R05 COUGH 06/25/2019 RUBI NÚÑEZ DO Ot R05 COUGH 06/25/2019 JENELLE FOLEY DRYWALL STRIPPER Ot J18.9 PNEUMONIA, UNSPECIFIED ORGANISM 06/25/2019 MADL, DEAN L DIE FORGER Ot M25.50 PAIN IN UNSPECIFIED JOINT 06/25/2019 MADL, DEAN L DIE FORGER Ot N63 UNSPECIFIED LUMP IN BREAST 06/25/2019 MADL, DEAN L DIE FORGER Ot N64 .4 MASTODYNIA 07/09/2019 NIYA RUBI M Ot R05 COUGH 07/09/2019 NIYA DO RUBI M Ot R05 COUGH 07/09/2019 JENELLE FOLEY APRN Ot J18.9 PNEUMONIA, UNSPECIFIED ORGANISM 07/09/2019 VANESSALDEAN DIE FORGER Ot M25.50 PAIN IN UNSPECIFIED JOINT 07/09/2019 MADL, DEAN Culp DIE FORGER Ot N63 UNSPECIFIED LUMP IN BREAST 07/09/2019 VANESSAL, DEAN Culp DIE FORGER Ot N64 .4 MASTODYNIA 07/10/2019 MICHELLE FABIAN MD Ot J98. 01 ACUTE BRONCHOSPASM 07/10/2019 MICHELLE FABIAN MD Ot R05 COUGH 07/10/2019 MICHELLE FABIAN MD Ot T78.3XXA ANGIONEUROTIC EDEMA, INITIAL ENCOUNTER 07/10/2019 MICHELLE FABIAN MD Ot Z88. 5 ALLERGY STATUS TO NARCOTIC AGENT STATUS 07/13/2019 MICHELLE FABIAN MD Ot J98. 01 ACUTE BRONCHOSPASM 07/13/2019 MICHELLE FABIAN MD Ot R05 COUGH 07/13/2019 MICHELLE FABIAN MD Ot T78.3XXA ANGIONEUROTIC EDEMA, INITIAL ENCOUNTER 07/13/2019 MICHELLE FABIAN MD, Ot Z88. 5 ALLERGY STATUS TO NARCOTIC AGENT STATUS Procedures There is no data. Results Test Result Range Complete blood count (CBC) with automate d white blood cell (WBC) differential - 03/09/16 22:33 Blood leukocytes automated count (number/volume) 6.8 10*3/uL 4.3-11.0 Blood erythrocytes automated count (number/volume) 3.92 10*6/uL 4.35-5.85 Venous blood hemoglobin measurement (mass/volume) 11.6 g/dL 11.5-16.0 Blood hematocrit (volume fraction) 34 % 35-52 Automated erythrocyte mean corpuscular volume 88 [ foz_us] 80-99 Automated erythrocyte mean corpuscular h emoglobin (mass per erythrocyte) 30 pg 25-34 Automated erythrocyte mean corpuscular h emoglobin concentration measurement (mass/volume) 34 g/dL 32-36 Automated erythrocyte distribution width ratio 13. 0 % 10.0- 14.5 Automated blood platelet count (count/volume) 200 10*3/uL 130-400 Automated blood platelet mean volume measurement 11.3 [foz_us] 7.4-10.4 Automated blood neutrophils/100 leukocytes 63 % 42-75 Automated blood lymphocytes/100 leukocytes 26 % 12-44 Blood monocytes/100 leukocytes 10 % 0-12 Automated blood eosinophils/100 leukocytes 2 % 0-10 Automated blood basophils/100 leukocytes 0 % 0-10 Blood neutrophils automated count (number/volume) 4.2 10*3 1.8-7.8 Blood lymphocytes automated count (number/volume) 1.8 10*3 1.0-4.0 Blood monocytes automated count (number/volume) 0. 7 10*3 0.0-1.0 Automated eosinophil count 0.1 10*3/uL 0 .0-0.3 Automated blood basophil count (count/volume) 0.0 10*3/uL 0.0-0.1 Sedimentation Rate-[facility] - 05/10/16 11:26 [facility]hr 0-32 CBC With Differential/Platelet - 7 11:26 WBC 5.2 x10E3/uL 3.4-10.8 RBC 4.50 x10E6/uL 3.77-5.28 Hemoglobin 13.1 g/dL 11.1-15.9 Hematocrit 37.3 % 34.0-46.6 MCV 83 fL 79-97 MCH 29.1 pg 26.6-33.0 MCHC 35.1 g/dL 31.5-35.7 RDW 13.1 % 12.3-15.4 Platelets 236 x10E3/uL 150-379 Neutrophils 54 % Lymphs 38 % Monocytes 7 % Eos 1 % Basos 0 % Neutrophils (Absolute) 2.8 x10E3/uL 1.4- 7.0 Lymphs (Absolute) 2.0 x10E3/uL 0.7-3.1 Monocytes(Absolute) 0.4 x10E3/uL 0.1-0.9 Eos (Absolute) 0.0 x10E3/uL 0.0-0.4 Baso (Absolute) 0.0 x10E3/uL 0.0-0.2 Immature Granulocytes 0 % Immature Grans (Abs) 0.0 x10E3/uL 0.0-0. 1 Comp. Metabolic Panel (14) - 05/10/16 11 :26 Glucose, Serum 87 mg/dL 65-99 BUN 8 mg/dL 6-20 Creatinine, Serum 0.72 mg/dL 0.57-1.00 eGFR If NonAfricn Am 108 mL/min/1.73 >59 eGFR If Africn Am 125 mL/min/1.73 >5 9 BUN/Creatinine Ratio 11 8-20 Sodium, Serum 140 mmol/L 134-144 Potassium, Serum 4.0 mmol/L 3.5-5.2 Chloride, Serum 102 mmol/L 96-106 Carbon Dioxide, Total 21 mmol/L 18-29 Calcium, Serum 9.2 mg/dL 8.7-10.2 Protein, Total, Serum 7.3 g/dL 6.0-8.5 Albumin, Serum 4.6 g/dL 3.5-5.5 Globulin, Total 2.7 g/dL 1.5-4.5 A/G Ratio 1.7 1.1-2.5 Bilirubin, Total 0.4 mg/dL 0.0-1.2 Alkaline Phosphatase, S 79 IU/L 39-117 AST (SGOT) 21 IU/L 0-40 ALT (SGPT) 13 IU/L 0-32 Lipid Panel - 05/10/16 11:26 Cholesterol, Total 195 mg/dL 100-199 Triglycerides 48 mg/dL 0-149 HDL Cholesterol 74 mg/dL >39 VLDL Cholesterol Aldair 10 mg/dL 5-40 LDL Cholesterol Calc 111 mg/dL 0-99 Rheumatoid Arthritis Factor - 05/10/16 1 1:26 RA Latex Turbid. <10.0 IU/mL 0.0-13.9 TSH - 05/10/16 11:26 TSH 0.607 uIU/mL 0.450-4.500 Vitamin D, 25-Hydroxy - 05/10/16 11:26 Vitamin D, 25-Hydroxy 13.1 ng/mL 30.0-10 0.0 Antinuclear Antibodies, IFA - 05/10/16 1 1:26 Antinuclear Antibodies, IFA Positive SARABJIT Staining Patterns - 05/10/16 11:26 Speckled Pattern 1:160 Note: Comment C-Reactive Protein, Quant - 05/10/16 11: 26 C-Reactive Protein, Quant 0.2 mg/L 0.0- 4.9 Influenza virus A and B antigen detectio n - 06/12/18 21:09 FLU RESULT NEGATIVE FOR INFLUENZA A AND B ANTIGENS BY IA NRG Complete urinalysis with reflex to cultu re - 05/01/19 18:58 Urine color determination YELLOW NRG Urine clarity determination CLEAR NR G Urine pH measurement by test strip 5.0 5-9 Specific gravity of urine by test strip >= 1.016-1.022 Urine protein assay by test strip, semi-quantitative NEGATIVE NEGATIVE Urine glucose detection by automated test strip NE GATIVE NEGATIVE Erythrocytes detection in urine sediment by light micr oscopy 1+ NEGATIVE Urine ketones detection by automated test strip NE GATIVE NEGATIVE Urine nitrite detection by test strip NEGATIVE NEGATIVE Urine total bilirubin detection by test strip NEGA TIVE NEGATIVE Urine urobilinogen measurement by automated test strip (mass/volume) 0.2 mg/dL < = 1.0 Urine leukocyte esterase detection by dipstick NEG ATIVE NEGATIVE Automated urine sediment erythrocyte cou nt by microscopy (number/high power field) [HPF] NRG Automated urine sediment leukocyte count by microscopy (number/high power field) [HPF] NRG Bacteria detection in urine sediment by light microsco py FEW NRG Squamous epithelial cells detection in u rine sediment by light microscopy 5-10 NRG Crystals detection in urine sediment by light microsco py NONE NRG Casts detection in urine sediment by light microscopy NONE NRG Mucus detection in urine sediment by light microscopy NEGATIVE NRG Complete urinalysis with reflex to culture YES NRG Bacterial urine culture - 05/01/19 18:58 Bacterial urine culture 3 OR MORE NRG COLONY COUNT 20,000 CFU/ML NRG FTX;REPORTABLE GRAM POSITIVE ISOLATES; SUGGESTING NRG FREE TEXT ENTRY 2 PROBABLE COLLECTION CONTAMINATIO N WITH NRG FREE TEXT ENTRY 3 SKIN YUNI. NO SUSCEPTIBILITY PE RFORMED. NRG Complete blood count (CBC) with automate d white blood cell (WBC) differential - 05/01/19 19:20 Blood leukocytes automated count (number/volume) 6.7 10*3/uL 4.3-11.0 Blood erythrocytes automated count (number/volume) 4.47 10*6/uL 4.35-5.85 Venous blood hemoglobin measurement (mass/volume) 13.0 g/dL 11.5-16.0 Blood hematocrit (volume fraction) 38 % 35-52 Automated erythrocyte mean corpuscular volume 86 [ foz_us] 80-99 Automated erythrocyte mean corpuscular h emoglobin (mass per erythrocyte) 29 pg 25-34 Automated erythrocyte mean corpuscular h emoglobin concentration measurement (mass/volume) 34 g/dL 32-36 Automated erythrocyte distribution width ratio 13. 1 % 10.0- 14.5 Automated blood platelet count (count/volume) 192 10*3/uL 130-400 Automated blood platelet mean volume measurement 11.4 [foz_us] 7.4-10.4 Automated blood neutrophils/100 leukocytes 66 % 42-75 Automated blood lymphocytes/100 leukocytes 28 % 12-44 Blood monocytes/100 leukocytes 6 % 0-12 Automated blood eosinophils/100 leukocytes 1 % 0-10 Automated blood basophils/100 leukocytes 0 % 0-10 Blood neutrophils automated count (number/volume) 4.4 10*3 1.8-7.8 Blood lymphocytes automated count (number/volume) 1.9 10*3 1.0-4.0 Blood monocytes automated count (number/volume) 0. 4 10*3 0.0-1.0 Automated eosinophil count 0.1 10*3/uL 0 .0-0.3 Automated blood basophil count (count/volume) 0.0 10*3/uL 0.0-0.1 Serum or plasma choriogonadotropin (preg edson test) detection - 05/01/19 19:20 Serum or plasma choriogonadotropin ( test) de tection NEGATIVE NEGATIVE Comprehensive metabolic panel - 05/01/19 19:20 Serum or plasma sodium measurement (moles/volume) 139 mmol/L 135-145 Serum or plasma potassium measurement (moles/volume) 3.3 mmol/L 3.6-5.0 Serum or plasma chloride measurement (moles/volume) 106 mmol/L 98-107 Carbon dioxide 21 mmol/L 21-32 Serum or plasma anion gap determination (moles/volume) 12 mmol/L 5-14 Serum or plasma urea nitrogen measurement (mass/volume ) 10 mg/dL 7-18 Serum or plasma creatinine measurement (mass/volume) 0.80 mg/dL 0.60-1.30 Serum or plasma urea nitrogen/creatinine mass ratio 13 NRG Serum or plasma creatinine measurement w ith calculation of estimated glomerular filtration rate > NRG Serum or plasma glucose measurement (mass/volume) 102 mg/dL 70-105 Serum or plasma calcium measurement (mass/volume) 9.1 mg/dL 8.5-10.1 Serum or plasma total bilirubin measurement (mass/volu me) 0.4 mg/dL 0.1-1.0 Serum or plasma alkaline phosphatase chantelle surement (enzymatic activity/volume) 76 U/L 40-136 Serum or plasma aspartate aminotransfera se measurement (enzymatic activity/volume) 21 U/L 5-34 Serum or plasma alanine aminotransferase measurement (enzymatic activity/volume) 9 U/L 0-55 Serum or plasma protein measurement (mass/volume) 7.7 g/dL 6.4-8.2 Serum or plasma albumin measurement (mass/volume) 4.5 g/dL 3.2-4.5 CALCIUM CORRECTED 8.7 mg/dL 8.5-10.1 PT panel in platelet poor plasma by coag ulation assay - 06/23/19 16:10 Prothrombin time (PT) in platelet poor plasma by coagu lation assay 13.3 s 12.2-14.7 INR in platelet poor plasma or blood by coagulation as say 1.0 0.8-1.4 Activated partial thromboplastin time (a PTT) in platelet poor plasma bycoagulation assay - 06/23/19 16:10 Activated partial thromboplastin time (a PTT) in platelet poor plasma bycoagulation assay 30 s 24-35 Complete blood count (CBC) with automate d white blood cell (WBC) differential - 06/23/19 16:10 Blood leukocytes automated count (number/volume) 7.0 10*3/uL 4.3-11.0 Blood erythrocytes automated count (number/volume) 4.73 10*6/uL 4.35-5.85 Venous blood hemoglobin measurement (mass/volume) 13.6 g/dL 11.5-16.0 Blood hematocrit (volume fraction) 41 % 35-52 Automated erythrocyte mean corpuscular volume 87 [ foz_us] 80-99 Automated erythrocyte mean corpuscular h emoglobin (mass per erythrocyte) 29 pg 25-34 Automated erythrocyte mean corpuscular h emoglobin concentration measurement (mass/volume) 33 g/dL 32-36 Automated erythrocyte distribution width ratio 12. 9 % 10.0- 14.5 Automated blood platelet count (count/volume) 244 10*3/uL 130-400 Automated blood platelet mean volume measurement 11.8 [foz_us] 7.4-10.4 Automated blood neutrophils/100 leukocytes 59 % 42-75 Automated blood lymphocytes/100 leukocytes 31 % 12-44 Blood monocytes/100 leukocytes 7 % 0-12 Automated blood eosinophils/100 leukocytes 2 % 0-10 Automated blood basophils/100 leukocytes 0 % 0-10 Blood neutrophils automated count (number/volume) 4.2 10*3 1.8-7.8 Blood lymphocytes automated count (number/volume) 2.2 10*3 1.0-4.0 Blood monocytes automated count (number/volume) 0. 5 10*3 0.0-1.0 Automated eosinophil count 0.2 10*3/uL 0 .0-0.3 Automated blood basophil count (count/volume) 0.0 10*3/uL 0.0-0.1 Comprehensive metabolic panel - 06/23/19 16:10 Serum or plasma sodium measurement (moles/volume) 139 mmol/L 135-145 Serum or plasma potassium measurement (moles/volume) 3.6 mmol/L 3.6-5.0 Serum or plasma chloride measurement (moles/volume) 105 mmol/L 98-107 Carbon dioxide 25 mmol/L 21-32 Serum or plasma anion gap determination (moles/volume) 9 mmol/L 5-14 Serum or plasma urea nitrogen measurement (mass/volume ) 10 mg/dL 7-18 Serum or plasma creatinine measurement (mass/volume) 0.73 mg/dL 0.60-1.30 Serum or plasma urea nitrogen/creatinine mass ratio 14 NRG Serum or plasma creatinine measurement w ith calculation of estimated glomerular filtration rate > NRG Serum or plasma glucose measurement (mass/volume) 78 mg/dL 70-105 Serum or plasma calcium measurement (mass/volume) 8.9 mg/dL 8.5-10.1 Serum or plasma total bilirubin measurement (mass/volu me) 0.3 mg/dL 0.1-1.0 Serum or plasma alkaline phosphatase chantelle surement (enzymatic activity/volume) 92 U/L 40-136 Serum or plasma aspartate aminotransfera se measurement (enzymatic activity/volume) 26 U/L 5-34 Serum or plasma alanine aminotransferase measurement (enzymatic activity/volume) 13 U/L 0-55 Serum or plasma protein measurement (mass/volume) 7.9 g/dL 6.4-8.2 Serum or plasma albumin measurement (mass/volume) 4.6 g/dL 3.2-4.5 Magnesium - 06/23/19 16:10 Magnesium 2.6 mg/dL 1.6-2.4 Fibrin D-dimer FEU measurement in platel et poor plasma (mass/volume) - 06/23/19 16:10 Fibrin D-dimer FEU measurement in platelet poor plasma (mass/volume) 0.28 ug/mL 0.00-0.49 Myoglobin, serum - 06/23/19 16:10 Myoglobin, serum 24.8 ng/mL 10.0-92.0 Serum or plasma troponin i.cardiac measu rement (mass/volume) - 06/23/19 16:10 Serum or plasma troponin i.cardiac measurement (mass/v olume) < ng/mL <0.028 Lipase - 06/23/19 16:10 Lipase 53 U/L 8-78 Complete blood count (CBC) with automate d white blood cell (WBC) differential - 07/09/19 23:35 Blood leukocytes automated count (number/volume) 6.8 10*3/uL 4.3-11.0 Blood erythrocytes automated count (number/volume) 4.46 10*6/uL 4.35-5.85 Venous blood hemoglobin measurement (mass/volume) 13.0 g/dL 11.5-16.0 Blood hematocrit (volume fraction) 39 % 35-52 Automated erythrocyte mean corpuscular volume 86 [ foz_us] 80-99 Automated erythrocyte mean corpuscular h emoglobin (mass per erythrocyte) 29 pg 25-34 Automated erythrocyte mean corpuscular h emoglobin concentration measurement (mass/volume) 34 g/dL 32-36 Automated erythrocyte distribution width ratio 13. 0 % 10.0- 14.5 Automated blood platelet count (count/volume) 186 10*3/uL 130-400 Automated blood platelet mean volume measurement 12.1 [foz_us] 7.4-10.4 Automated blood neutrophils/100 leukocytes 53 % 42-75 Automated blood lymphocytes/100 leukocytes 37 % 12-44 Blood monocytes/100 leukocytes 8 % 0-12 Automated blood eosinophils/100 leukocytes 2 % 0-10 Automated blood basophils/100 leukocytes 0 % 0-10 Blood neutrophils automated count (number/volume) 3.6 10*3 1.8-7.8 Blood lymphocytes automated count (number/volume) 2.5 10*3 1.0-4.0 Blood monocytes automated count (number/volume) 0. 6 10*3 0.0-1.0 Automated eosinophil count 0.1 10*3/uL 0 .0-0.3 Automated blood basophil count (count/volume) 0.0 10*3/uL 0.0-0.1 Fibrin D-dimer FEU measurement in platel et poor plasma (mass/volume) - 07/09/19 23:35 Fibrin D-dimer FEU measurement in platelet poor plasma (mass/volume) 0.33 ug/mL 0.00-0.49 Comprehensive metabolic panel - 07/09/19 23:35 Serum or plasma sodium measurement (moles/volume) 139 mmol/L 135-145 Serum or plasma potassium measurement (moles/volume) 3.5 mmol/L 3.6-5.0 Serum or plasma chloride measurement (moles/volume) 105 mmol/L 98-107 Carbon dioxide 23 mmol/L 21-32 Serum or plasma anion gap determination (moles/volume) 11 mmol/L 5-14 Serum or plasma urea nitrogen measurement (mass/volume ) 9 mg/dL 7-18 Serum or plasma creatinine measurement (mass/volume) 0.81 mg/dL 0.60-1.30 Serum or plasma urea nitrogen/creatinine mass ratio 11 NRG Serum or plasma creatinine measurement w ith calculation of estimated glomerular filtration rate > NRG Serum or plasma glucose measurement (mass/volume) 92 mg/dL 70-105 Serum or plasma calcium measurement (mass/volume) 9.1 mg/dL 8.5-10.1 Serum or plasma total bilirubin measurement (mass/volu me) 0.2 mg/dL 0.1-1.0 Serum or plasma alkaline phosphatase chantelle surement (enzymatic activity/volume) 81 U/L 40-136 Serum or plasma aspartate aminotransfera se measurement (enzymatic activity/volume) 22 U/L 5-34 Serum or plasma alanine aminotransferase measurement (enzymatic activity/volume) 11 U/L 0-55 Serum or plasma protein measurement (mass/volume) 7.8 g/dL 6.4-8.2 Serum or plasma albumin measurement (mass/volume) 4.4 g/dL 3.2-4.5 CALCIUM CORRECTED 8.8 mg/dL 8.5-10.1 Serum or plasma C reactive protein measu rement (mass/volume) - 07/09/19 23:35 Serum or plasma C reactive protein measurement (mass/v olume) 0.03 mg/dL 0.00-0.50 Encounters ACCT No. Visit Date/Time Discharge Status Pt. Type Provider Facility Loc./Unit Complaint [id number] 05/11/2016 08:06:00 Document Registration [id number] 07/09/2019 23:21:00 01:09:00 DIS Emergency MICHELLE FABIAN MD Via [facility] ER COUGH,SOB [id number] 06/23/2019 16:05:00 020 17:23:00 DIS Emergency DAVY CHERRY Via [facility] ER LEFT SIDE CHEST PAIN [id number] 05/01/2019 18:38:00 21:02:00 DIS Emergency ALFREDO CLEMENT APRN Via [facility] ER LOWER ABD PAIN [id number] 11/09/2018 19:15:00 019 19:50:00 DIS Emergency MICHELLE FABIAN MD Via [facility] ER SWOLLEN TONGUE, SORE MO [facility] [id number] 06/12/2018 19:58:00 019 22:00:00 DIS Emergency YANELIMINERVA Ha DIE FORGER Via [facility] ER N,V,COUGH [id number] 07/18/2016 08:53:00 017 10:01:00 DIS Emergency HERO ERWIN DO Vi a [facility] ER RIGHT FOOT/ANKLE INJURY [id number] 05/21/2016 08:53:00 017 23:59:59 CLS Outpatient DEAN MOORE DIE FORGER Via [facility] RAD ARTHRALGIA OF MULTIPLE SITES,BILATERAL [id number] 04/04/2016 13:45:00 016 23:59:59 CLS Outpatient JENELLE FOLEY APRN Via [facility] RAD PNEUMONIA [id number] 03/09/2016 14:13:00 23:59:59 CLS Outpatient RUBI NÚÑEZ DO Via [facility] RT COUGH [id number] 03/09/2016 22:06:00 23:27:00 DIS Emergency ALFREDO CLEMENT APRN Via [facility] ER VOMITING/COUGH/STOMACH AND LUNG PAIN [id number] 02/13/2016 10:19:00 23:59:59 CLS Outpatient RUBI NÚÑEZ DO Via [facility] RAD COUGH [id number] 10/17/2015 12:25:00 23:59:59 CLS Outpatient ION STANFORD APRN [facility] [id number] 05/11/2016 20:07:00 Document Registration
[2019-08-01] MEDS ORDERED: KETOROLAC 30 MG/ML VIAL ONE (15:00)
--- NOTE | 2019-08-01 15:09 | ED Cough/URI ---
General Stated Complaint: CHEST PAIN / KIDNEY PAIN Source: patient Exam Limitations: no limitations History of Present Illness Date Seen by Provider: Aug 01, 2019 Time Seen by Provider: 15:08 Initial Comments To ER by a private vehicle with reports of bilateral flank pain, cough. The cough has been present for 1 month, she was initially diagnosed with bilateral pneumonia, given 2 rounds of Omnicef. Fails to improve, today has chest pain worse with deep breathing. No fevers. Is negative for over last week. Timing/Duration: constant Severity/Quality: dry cough Prior Episodes/Possible Cause: no prior episodes Associated Symptoms: cough Allergies and Home Medications Allergies Coded Allergies: morphine (Unverified Allergy, Unknown, 03/09/16) Home Medications Albuterol Sulfate 1 Puff Puff, 2 PUFF IH Q4H PRN for WHEEZING 1 PUFF = 90 MCG Prescribed by: MICHELLE FABIAN on 07/10/19 010 Chlorhexidine Gluconate 473 Ml Mouthwash, 15 ML MM BID Prescribed by: MICHELLE FABIAN on 11/09/18 194 Doxycycline Hyclate 100 Mg Tablet, 100 MG PO BID Prescribed by: DAVY CHERRY on 06/23/19 1705 Naproxen 500 Mg Tablet, 500 MG PO BID Prescribed by: HERO ERWIN on 07/18/16 0944 Patient Home Medication List Home Medication List Reviewed: Yes Review of Systems Review of Systems Constitutional: see HPI; No chills, No fever Respiratory: see HPI, cough Cardiovascular: no symptoms reported Genitourinary: no symptoms reported Musculoskeletal: no symptoms reported Skin: no symptoms reported (bronchitis) Psychiatric/Neurological: No Symptoms Reported Past Kyfxsew-Kvojhw-Dtqaam Hx Patient Social History Recent Foreign Travel: No Contact w/Someone Who Travel: No Recent Hopitalizations: No Immunizations Up To Date Tetanus Booster (TDap): More than 5yrs Date of Influenza Vaccine: Jan 07, 2016 Seasonal Allergies Seasonal Allergies: No Past Medical History Surgeries: Yes Appendectomy, Section, Hysterectomy, Tubal Ligation Respiratory: Yes Pneumonia Cardiac: No Neurological: No Reproductive Disorders: No [employer] History: Hysterectomy Gastrointestinal: No Musculoskeletal: No Endocrine: Yes (STATES THEY ARE TESTING FOR LUPUS) Cancer: No Psychosocial: No Integumentary: No Blood Disorders: No Physical Exam Vital Signs - First Documented 08/01/19 15:00 Temp 36.5 Pulse 87 Resp 18 B/P (MAP) 121/90 (100) Pulse Ox 100 O2 Delivery Room Air Capillary Refill : Height: 5'6.00" Weight: 115lbs. oz. 52.763007oe; 19.00 BMI Method:Stated General Appearance: WD/WN, no apparent distress, other (no wheezing good air movement sets 100% room air) Eyes: Bilateral Eye Normal Inspection, Bilateral Eye PERRL, Bilateral Eye EOMI HEENT: PERRL/EOMI, normal ENT inspection Neck: non-tender, full range of motion Respiratory: normal breath sounds, no respiratory distress, no accessory muscle use; No crackles, No wheezing Cardiovascular: regular rate, rhythm, no murmur Gastrointestinal: normal bowel sounds, non tender, soft Neurologic/Psychiatric: alert, normal mood/affect, oriented x 3 Skin: normal color, warm/dry Progress/Results/Core Measures Suspected Sepsis SIRS Temperature: Pulse: Respiratory Rate: Laboratory Tests 08/01/19 15:02: White Blood Count 6.8 Blood Pressure / Mean: Laboratory Tests 08/01/19 15:02: Creatinine 0.77, Platelet Count 242, Total Bilirubin 0.4 Results/Orders Lab Results Laboratory Tests Test 08/01/19 15:02 Range/Units White Blood Count 6.8 4.3-11.0 10^3/uL Red Blood Count 4.54 4.35-5.85 10^6/uL Hemoglobin 13.1 11.5-16.0 G/DL Hematocrit 39 35-52 % Mean Corpuscular Volume 86 80-99 FL Mean Corpuscular Hemoglobin 29 25-34 PG Mean Corpuscular Hemoglobin Concent 34 32-36 G/DL Red Cell Distribution Width 13.1 10.0-14.5 % Platelet Count 242 130-400 10^3/uL Mean Platelet Volume 11.6 H 7.4-10.4 FL Neutrophils (%) (Auto) 66 42-75 % Lymphocytes (%) (Auto) 25 12-44 % Monocytes (%) (Auto) 8 0-12 % Eosinophils (%) (Auto) 0 0-10 % Basophils (%) (Auto) 0 0-10 % Neutrophils # (Auto) 4.5 1.8-7.8 X 10^3 Lymphocytes # (Auto) 1.7 1.0-4.0 X 10^3 Monocytes # (Auto) 0.6 0.0-1.0 X 10^3 Eosinophils # (Auto) 0.0 0.0-0.3 10^3/uL Basophils # (Auto) 0.0 0.0-0.1 10^3/uL Sodium Level 139 135-145 MMOL/L Potassium Level 3.6 3.6-5.0 MMOL/L Chloride Level 106 98-107 MMOL/L Carbon Dioxide Level 23 21-32 MMOL/L Anion Gap 10 5-14 MMOL/L Blood Urea Nitrogen 7 7-18 MG/DL Creatinine 0.77 0.60-1.30 MG/DL Estimat Glomerular Filtration Rate > 60 BUN/Creatinine Ratio 9 Glucose Level 74 70-105 MG/DL Calcium Level 9.1 8.5-10.1 MG/DL Corrected Calcium 8.9 8.5-10.1 MG/DL Total Bilirubin 0.4 0.1-1.0 MG/DL Aspartate Amino Transf (AST/SGOT) 27 5-34 U/L Alanine Aminotransferase (ALT/SGPT) 12 0-55 U/L Alkaline Phosphatase 77 40-136 U/L C-Reactive Protein High Sensitivity 0.03 0.00-0.50 MG/DL Total Protein 7.7 6.4-8.2 GM/DL Albumin 4.3 3.2-4.5 GM/DL My Orders Orders - ALFREDO CLEMENT APRN Hs C Reactive Protein (08/01/19 14:56) Procalcitonin (Pct) (08/01/19 14:56) Cbc With Automated Diff (08/01/19 14:56) Comprehensive Metabolic Panel (08/01/19 14:56) Chest 1 View, Ap/Pa Only (08/01/19 14:56) Ed Iv/Invasive Line Start (08/01/19 14:56) Ketorolac Injection (Toradol Injection) (08/01/19 15:15) Ketorolac Injection (Toradol Injection) (08/01/19 15:00) Medications Given in ED Current Medications Medications Dose Ordered Sig/Jey Route Start Time Stop Time Status Last Admin Dose Admin Ketorolac Tromethamine 15 mg ONCE ONCE IVP 08/01/19 15:15 08/01/19 15:16 DC 08/01/19 15:09 15 MG Vital Signs/I&O 08/01/19 15:00 Temp 36.5 Pulse 87 Resp 18 B/P (MAP) 121/90 (100) Pulse Ox 100 O2 Delivery Room Air Capillary Refill : Departure Impression Primary Impression: Pleuritic chest pain Additional Impression: Post-infection bronchospasm Disposition: HOME, SELF-CARE Condition: Stable Departure-Patient Inst. Decision time for Depature: 15:54 Referrals: NO,LOCAL PHYSICIAN (PCP/Family) Primary Care Physician Patient Instructions: Pleuritic Chest Pain Add. Discharge Instructions: Inhaler 2 puffs every 4 hours for shortness of breath. Steroids as directed. See your doctor next week. Scripts Prednisone (Prednisone) 20 Mg Tab 40 MG PO DAILY, #8 TAB Prov: ALFREDO CLEMENT APRN 08/01/19 ALFREDO CLEMENT APRN Aug 01, 2019 15:09
[2019-08-01 15:11] LABS: BASOPHILS % (AUTO) 0 % (0-10); EOSINOPHILS % (AUTO) 0 % (0-10); HEMATOCRIT 39 % (35-52); HEMOGLOBIN 13.1 G/DL (11.5-16.0); LYMPHOCYTES # (AUTO) 1.7 X 10^3 (1.0-4.0); LYMPHOCYTES % (AUTO) 25 % (12-44); MEAN CORPUSCULAR HEMOGLOBIN 29 PG (25-34); MEAN CORPUSCULAR HGB CONC 34 G/DL (32-36); MEAN CORPUSCULAR VOLUME 86 FL (80-99); MEAN PLATELET VOLUME 11.6 FL (7.4-10.4); MONOCYTES # (AUTO) 0.6 X 10^3 (0.0-1.0); MONOCYTES % (AUTO) 8 % (0-12); NEUTROPHILS # (AUTO) 4.5 X 10^3 (1.8-7.8); NEUTROPHILS % (AUTO) 66 % (42-75); PLATELET COUNT 242 10^3/uL (130-400); RED CELL DISTRIBUTION WIDTH 13.1 % (10.0-14.5); WHITE BLOOD COUNT 6.8 10^3/uL (4.3-11.0)
[2019-08-01] MEDS ORDERED: KETOROLAC 30 MG/ML VIAL IVP ONE (15:15)
[2019-08-01 15:26] LABS: ALBUMIN 4.3 GM/DL (3.2-4.5); CHLORIDE 106 MMOL/L (98-107); POTASSIUM 3.6 MMOL/L (3.6-5.0); SODIUM 139 MMOL/L (135-145)
[2019-08-01 15:27] LABS: CALCIUM 9.1 MG/DL (8.5-10.1)
[2019-08-01 15:29] LABS: GLUCOSE 74 MG/DL (70-105); TOTAL PROTEIN 7.7 GM/DL (6.4-8.2)
[2019-08-01 15:30] LABS: BILIRUBIN,TOTAL 0.4 MG/DL (0.1-1.0); CARBON DIOXIDE 23 MMOL/L (21-32)
[2019-08-01 15:32] LABS: ALKALINE PHOSPHATASE 77 U/L (40-136); CREATININE SERUM 0.77 MG/DL (0.60-1.30); GFR ESTIMATED > 60
[2019-08-01 15:33] LABS: BUN/CREATININE RATIO 9
[2019-08-01 15:35] LABS: ALANINE AMINOTRANSFERASE 12 U/L (0-55)
--- NOTE | 2019-08-01 15:49 | Diagnostic Imaging Report ---
EXAM: CHEST 1 VIEW, AP/PA ONLY. INDICATION: Productive cough. COMPARISON: 04/04/2016 and 07/09/2019. FINDINGS: Normal heart size and central pulmonary vascularity. Scattered pulmonary opacities in both upper lobes and the left lung base are stable compared to at least 04/04/2016. No new focal pulmonary opacity. No pleural effusion or pneumothorax. No acute osseous findings. IMPRESSION: Scattered parenchymal opacities are stable and appear chronic. No acute cardiopulmonary findings. Dictated by: Dictated on workstation # [id number]
[2019-08-01] MEDS ORDERED: PRD20T PO (15:56)
[2019-08-01 16:03] VITALS: BP 121/90
== END 2019-08-01 16:03 | disposition home or self-care (01) ==
LOC: EDUNIT# 14:52 → ER 14:53
DX: R07.2 Precordial pain (principal); J98.8 Other specified respiratory disorders; Z88.5 Allergy status to narcotic agent; Z87.01 Personal history of pneumonia (recurrent)
CPT/HCPCS: 36415; 71045; 80053; 84145; 85025; 86141

== ENCOUNTER 2020-08-11 16:48 | Emergency (ER) | payer MEDICARE ==
[~2020-08-11] VITALS: Ht 167 cm; Wt 54.8 kg
[~2020-08-11 16:48] MED LIST changes: +PRD20T PO
--- NOTE | 2020-08-11 17:12 | ED Cough/URI ---
General Chief Complaint: Cough/Cold/Flu Symptoms Stated Complaint: COUGH / CHEST TIGHTNESS Nursing Triage Note: Patient ambulatory to ER with c/o cough x 2 weeks. Patient states she is coughing up thick mucus. She has had chest tightness today with increased shortness of breath today. Patient was seen at PCP and given a sinus rinse. Sepsis Screen: No Definite Risk Source: patient Exam Limitations: no limitations History of Present Illness Date Seen by Provider: August 11, 2020 Time Seen by Provider: 17:00 Initial Comments Patient is a 40-year-old female who presents to the emergency department today with a chief complaint of productive cough over the last 2 to 4 weeks. Patient states that she is coughing up thick mucus. She states that she has a history of chronic COPD and occasionally has to use an albuterol inhaler. She is a non- smoker. She states she has not had any fever. She states that she has had chest "tightness" and a feeling of heaviness on her chest that she thinks might be related to pneumonia. Patient states that she has had several bouts of pneumonia throughout the years. She states she did see one of the providers at [facility] a week ago and was told that maybe she had some sinus congestion. She had a sinus rinse. She states it did not help at all. She states she is very worried about developing pneumonia. She denies any nausea, significant shortness of breath. She has no personal history of coronary artery disease. She states her mother has had to have a stent in the past. No history of hypertension. She is not a diabetic. All other review of systems reviewed and negative except as stated above. Timing/Duration: getting worse Severity/Quality: productive cough Prior Episodes/Possible Cause: occasional episodes Modifying Factors: Improves With Albuterol Inhaler Associated Symptoms: chest pain/soreness ("tightness") Allergies and Home Medications Allergies Coded Allergies: morphine (Unverified Allergy, Unknown, 03/09/16) Home Medications Albuterol Sulfate 1 Puff Puff, 2 PUFF IH Q4H PRN for WHEEZING 1 PUFF = 90 MCG Prescribed by: MICHELLE FABIAN on 07/10/19 0102 Benzonatate 100 Mg Capsule, 200 MG PO Q8H PRN for COUGH Prescribed by: MITZI VANEGAS on 08/11/20 174 Chlorhexidine Gluconate 473 Ml Mouthwash, 15 ML MM BID Prescribed by: MICHELLE FABIAN on 11/09/18 194 Doxycycline Hyclate 100 Mg Tablet, 100 MG PO BID Prescribed by: DAVY CHERRY on 06/23/19 1705 Doxycycline Hyclate 100 Mg Capsule, 100 MG PO BID Prescribed by: MITZI VANEGAS on 08/11/20 1746 Naproxen 500 Mg Tablet, 500 MG PO BID Prescribed by: HERO ERWIN on 07/18/16 0944 Prednisone 20 Mg Tab, 40 MG PO DAILY Prescribed by: ALFERDO CLEMENT on 08/01/19 1556 Patient Home Medication List Home Medication List Reviewed: Yes Review of Systems Review of Systems Constitutional: see HPI EENTM: no symptoms reported Respiratory: cough, phlegm, short of breath Cardiovascular: chest pain Gastrointestinal: no symptoms reported Genitourinary: no symptoms reported Musculoskeletal: no symptoms reported Skin: no symptoms reported All Other Systems Reviewed Negative Unless Noted: Yes Past Tdbfrnt-Oxnojx-Ddxowq Hx Patient Social History Alcohol Use: Denies Use Smoking Status: Former Smoker Recent Infectious Disease Expo: No Recent Hopitalizations: No Immunizations Up To Date Tetanus Booster (TDap): More than 5yrs Date of Pneumonia Vaccine: Jan 07, 2020 Date of Influenza Vaccine: Jan 07, 2020 Seasonal Allergies Seasonal Allergies: No Past Medical History Surgeries: Yes Appendectomy, Section, Hysterectomy, Tubal Ligation Respiratory: Yes Pneumonia, COPD Cardiac: No Neurological: No Reproductive Disorders: No [employer] History: Hysterectomy Gastrointestinal: No Musculoskeletal: No Endocrine: Yes (STATES THEY ARE TESTING FOR LUPUS) Cancer: No Psychosocial: No Integumentary: No Blood Disorders: No Physical Exam Vital Signs - First Documented 08/11/20 16:54 Temp 37.1 Pulse 80 Resp 20 B/P (MAP) 145/85 (105) Pulse Ox 99 O2 Delivery Room Air Capillary Refill : Less Than 3 Seconds Height: 5'6.00" Weight: 115lbs. oz. 52.957932es; 19.00 BMI Method:Stated General Appearance: WD/WN, no apparent distress Eyes: Bilateral Eye Normal Inspection, Bilateral Eye PERRL, Bilateral Eye EOMI Neck: normal inspection Respiratory: lungs clear, normal breath sounds, no respiratory distress, no accessory muscle use Cardiovascular: regular rate, rhythm, no murmur Gastrointestinal: non tender, soft Extremities: non-tender, normal inspection, no pedal edema Neurologic/Psychiatric: alert, normal mood/affect Skin: normal color, warm/dry Progress/Results/Core Measures Suspected Sepsis Recent Fever Within 48 Hours: No Infection Criteria Present: Suspected New Infection New/Unexplained Altered Menta: No Sepsis Screen: No Definite Risk SIRS Temperature: Pulse: 80 Respiratory Rate: 20 Blood Pressure 145 /85 Mean: 105 Results/Orders My Orders Orders - MITZI VANEGAS MD Ekg Tracing (08/11/20 17:12) Chest 1 View, Ap/Pa Only (08/11/20 17:12) Vital Signs/I&O 08/11/20 08/11/20 16:54 17:07 Temp 37.1 Pulse 80 Resp 20 B/P (MAP) 145/85 (105) Pulse Ox 99 O2 Delivery Room Air Room Air Capillary Refill : Less Than 3 Seconds Blood Pressure Mean: 105 ECG Initial ECG Impression Date: August 11, 2020 Initial ECG Impression Time: 17:10 Initial ECG Rate: 69 Initial ECG Rhythm: Normal Sinus Initial ECG Intervals: Normal Initial ECG Impression: Normal, Nonspecific Changes Initial ECG Comparisson: No Previous ECG Available Diagnostic Imaging Diagonstic Imaging: Xray Plain Films/CT/US/NM/MRI: chest Comments [facility] [place] [place] NAME: RANDOLPH KAUFMAN [facility] REC#: [id number] PT STATUS: REG ER : 1980 PHYSICIAN: MITZI VANEGAS MD ADMIT DATE: 08/11/20/ER Draft Date of Exam:08/11/20 CHEST 1 VIEW, AP/PA ONLY INDICATION: Cough x 2 weeks and shortness of breath. EXAMINATION: Frontal chest was obtained at 5:20 p.m. COMPARISON: 08/01/2019. FINDINGS: Compared to the prior study of 08/01/2019, the right midlung and basilar infiltrate appears slightly worsened. The left midlung and basilar infiltrate is about the same. There is no pneumothorax or pleural fluid. IMPRESSION: Bilateral pulmonary infiltrates are present which are suspicious for pneumonia, slightly worse on the right side compared with 08/01/2019. Dictated on workstation # [id number] Dict: 08/11/20 1728 Trans: 08/11/20 173 [facility] [id number] Interpreted by: CA RAMIREZ MD Electronically signed by: Departure Impression Primary Impression: Pneumonia Qualified Codes: J18.9 - Pneumonia, unspecified organism Disposition: 01 HOME, SELF-CARE Condition: Stable Departure-Patient Inst. Decision time for Depature: 17:43 Referrals: [facility] [place],LOCAL PHYSICIAN (PCP) Primary Care Physician Patient Instructions: Community-Acquired Pneumonia in Adults Add. Discharge Instructions: Drink plenty of fluids to stay well-hydrated. Use your inhaler 2 puffs, every 6 hours, as needed for shortness of breath. Wgly-hnn-dgllgje Robitussin cough medicine as needed for cough. Your antibiotics should kick in over the course of the next 24 to 48 hours and you should start feeling significantly better. If you have any worsening symptoms of cough, shortness of breath, fever or any other emergent concerning symptoms please come back to the emergency room for reevaluation. Scripts Benzonatate (TESSALON PERLES) 100 Mg Capsule 200 MG PO TID PRN for COUGH, #15 CAP Prov: MITZI VANEGAS MD 08/11/20 Doxycycline Hyclate (Doxycycline Hyclate) 100 Mg Capsule 100 MG PO BID for 10 Days, #20 CAP Prov: MITZI VANEGAS MD 08/11/20 MITZI VANEGAS MD August 11, 2020 17:12
--- NOTE | 2020-08-11 17:31 | Diagnostic Imaging Report ---
INDICATION: Cough x 2 weeks and shortness of breath. EXAMINATION: Frontal chest was obtained at 5:20 p.m. COMPARISON: 08/01/2019. FINDINGS: Compared to the prior study of 08/01/2019, the right midlung and basilar infiltrate appears slightly worsened. The left midlung and basilar infiltrate is about the same. There is no pneumothorax or pleural fluid. IMPRESSION: Bilateral pulmonary infiltrates are present which are suspicious for pneumonia, slightly worse on the right side compared with 08/01/2019. Dictated by: Dictated on workstation # [id number]
[2020-08-11] MEDS ORDERED: BENZ100C18 PO ×2 (17:45→18:13)
[2020-08-11] MEDS ORDERED: DOXY100C2 PO ×2 (17:46→18:13)
[2020-08-11 18:12] VITALS: BP 114/75
[2020-08-17] MEDS ORDERED: AZIT250T12 PO (15:26)
[2020-08-17] MEDS ORDERED: CEFD300C3 PO (15:26)
[2020-08-17] MEDS ORDERED: ASPI-1238 PO (15:26)
== END 2020-08-11 18:13 | disposition home or self-care (01) ==
LOC: EDUNIT# 16:48 → ER 16:50
DX: J18.9 Pneumonia, unspecified organism (principal); J44.9 Chronic obstructive pulmonary disease, unspecified; Z87.891 Personal history of nicotine dependence; Z88.5 Allergy status to narcotic agent; Z79.52 Long term (current) use of systemic steroids
CPT/HCPCS: 71045; 93005

== ENCOUNTER 2020-08-16 23:38 | Observation (INO) | payer MEDICARE ==
[~2020-08-16] VITALS: Ht 167 cm; Wt 53.8 kg
[~2020-08-16 23:38] MED LIST changes: +BENZ100C18 PO; +DOXY100C2 PO
[2020-08-16] MEDS ORDERED: NITROGLYCERIN 0.4 MG SL TABS BTL 25'S SL PRN (23:45)
[2020-08-16] MEDS ORDERED: ASPIRIN 81 MG CHEW (CHILDREN'S ASA) PO ONE (23:45)
[2020-08-17] VITALS (8 sets, daily range): BP systolic 92–104; BP diastolic 55–70
[2020-08-17] MEDS ORDERED: PANTOPRAZOLE 40 MG (PROTONIX) VIAL IV ONE
[2020-08-17] MEDS ORDERED: ONDANSETRON 4 MG/2 ML (SDV) Z0FRAN IVP ONE
[2020-08-17 00:01] LABS: BASOPHILS % (AUTO) 1 % (0-10); EOSINOPHILS # (AUTO) 0.1 10^3/uL (0.0-0.3); EOSINOPHILS % (AUTO) 1 % (0-10); HEMATOCRIT 41 % (35-52); HEMOGLOBIN 13.6 g/dL (11.5-16.0); LYMPHOCYTES % (AUTO) 38 % (12-44); MEAN CORPUSCULAR HEMOGLOBIN 29 pg (25-34); MEAN CORPUSCULAR HGB CONC 34 g/dL (32-36); MEAN CORPUSCULAR VOLUME 87 fL (80-99); MEAN PLATELET VOLUME 11.5 fL (9.0-12.2); MONOCYTES # (AUTO) 0.6 10^3/uL (0.0-1.0); MONOCYTES % (AUTO) 8 % (0-12); NEUTROPHILS # (AUTO) 4.2 10^3/uL (1.8-7.8); NEUTROPHILS % (AUTO) 53 % (42-75); PLATELET COUNT 235 10^3/uL (130-400); WHITE BLOOD COUNT 7.9 10^3/uL (4.3-11.0)
--- NOTE | 2020-08-17 00:08 | ED Cardiac General ---
History of Present Illness General Chief Complaint: Chest Pain Stated Complaint: SOB,CP,LEFT ARM NUMB Nursing Triage Note: C/O CHEST PAIN AT HOME AFTER TAKING ANTIBIOTIC BEFORE BED. 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 C/O CHEST PAIN STATES PAIN IS ON BOTH SIDES OF HER CHEST, UNDER BOTH BREASTS, AND "FEELS LIKE HEART BURN AND PAIN AT THE SAME TIME" RATES PAIN 10/15 NO RADIATION OF PAIN C/O NAUSEA, NO VOMITING C/O PAIN TO BACK OF HEADC C/O TINGLING IN LEFT ARM SYMPTOMS BEGAN "5 MINUTES AGO" AND RUSHED STRAIGHT HERE HAS NOT TAKEN ANYTHING FOR PAIN PT WAS SEEN HERE "3 DAYS AGO" ( ACTUALLY WAS 08/11/20 ) FOR ONGOING PRODUCTIVE COUGH FOR THE LAST FEW WEEKS, AND CHEST TIGHTNESS PT WAS DIAGNOSED WITH PNEUMONIA AND STARTED ON DOXYCYCLINE AND TESAUGUSTA VARGAS STATES SHE HAD JUST TAKEN A DOSE OF DOXYCYCLINE TONIGHT AND SHORTLY AFTER THAT THE ABOVE SYMPTOMS BEGAN PT HAS COPD AND HAS HAD PNEUMONIA A FEW TIMES STATES SHE IS ALWAYS SHORT OF BREATH, BUT NOT WORSE THAN NORMAL PT STATES SHE HAS NEVER SMOKED PT DOES NOT HAVE INHALERS AT HOME NO FEVER/SWEATS/CHILLS NO PALPITATIONS NO DIZZINESS OR SYNCOPE NO SWELLING IN LEGS/ FEET OR PAIN IN CALVES NO LOSS OF TASTE/SMELL PT HAD HER SECOND COVID-19 VACCINATION IN JUNE PCP: [facility] Allergies and Home Medications Allergies Coded Allergies: morphine (Unverified Allergy, Unknown, 03/09/16) Home Medications Albuterol Sulfate 1 Puff Puff, 2 PUFF IH Q4H PRN for WHEEZING 1 PUFF = 90 MCG Prescribed by: MICHELLE FABIAN on 07/10/19101 Benzonatate 100 Mg Capsule, 200 MG PO TID PRN for COUGH Prescribed by: MITZI VANEGAS on 08/11/201812 Chlorhexidine Gluconate 473 Ml Mouthwash, 15 ML MM BID Prescribed by: MICHELLE FABIAN on 11/09/18 194 Doxycycline Hyclate 100 Mg Tablet, 100 MG PO BID Prescribed by: DAVY CHERRY on 06/23/19 1705 Doxycycline Hyclate 100 Mg Capsule, 100 MG PO BID Prescribed by: MITZI VANEGAS on 08/11/20 1813 Naproxen 500 Mg Tablet, 500 MG PO BID Prescribed by: HERO ERWIN on 07/18/16 0944 Prednisone 20 Mg Tab, 40 MG PO DAILY Prescribed by: ALFREDO CLEMENT on 08/01/19 1556 Patient Home Medication List Home Medication List Reviewed: Yes Review of Systems Review of Systems Constitutional: No chills, No diaphoresis, No dizziness, No fever EENTM: No Symptoms Reported Respiratory: See HPI, Cough, Shortness of Air Cardiovascular: See HPI, Chest Pain; Denies Edema, Denies Irregular Heart Rate, Denies Lightheadedness, Denies Palpitations, Denies Syncope Gastrointestinal: See HPI; Denies Abdominal Pain; Nausea; Denies Vomiting Genitourinary: No Symptoms Reported Musculoskeletal: no symptoms reported Skin: no symptoms reported Psychiatric/Neurological: See HPI, Anxiety, Numbness, Paresthesia, Tingling Endocrine: No Symptoms Reported Hematologic/Lymphatic: No Symptoms Reported Past Xtvztab-Hdmaht-Uywxeg Hx Past Med/Social Hx: Reviewed and Corrections made Patient Social History Alcohol Use: Denies Use Drug of Choice: DENIES Smoking Status: Never a Smoker Recent Infectious Disease Expo: No Recent Hopitalizations: No Immunizations Up To Date Tetanus Booster (TDap): More than 5yrs Date of Pneumonia Vaccine: Jan 07, 2020 Date of Influenza Vaccine: Jan 07, 2020 Seasonal Allergies Seasonal Allergies: No Past Medical History Surgeries: Yes (HYSTERCTOMY/OVARIES INTACT; X 1) Appendectomy, Section, Hysterectomy, Tubal Ligation Respiratory: Yes Pneumonia, COPD Cardiac: No Neurological: No 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 oz. 52.186557qf; 19.00 BMI Method:Stated General Appearance: No Apparent Distress, WD/WN, Anxious, Thin, Other (VERY ANXIOUS AND TALKS NON-STOP AT LENGTH. DRY, SHALLOW COUGH--RESOLVED SHORTLY AFTER ARRIVAL. HAIR DYED BRIGHT RED) HEENT: PERRL/EOMI Neck: Normal Inspection Respiratory: Chest Non Tender, Normal Breath Sounds, No Accessory Muscle Use, No Respiratory Distress Cardiovascular: Regular Rate, Rhythm, No Edema, No JVD, No Murmur, Normal Peripheral Pulses Gastrointestinal: Normal Bowel Sounds, No Organomegaly, No Pulsatile Mass, Non Tender, Soft Extremity: Normal Capillary Refill, Normal Inspection, Normal Range of Motion, Non Tender, No Calf Tenderness, No Pedal Edema Neurologic/Psychiatric: Alert, Oriented x3, No Motor/Sensory Deficits, nuclear radiologist II- XII Norm as Tested Skin: Normal Color, Warm/Dry Progress/Results/Core Measures Results/Orders Lab Results Laboratory Tests Test 08/16/20 23:55 Range/Units White Blood Count 7.9 4.3-11.0 10^3/uL Red Blood Count 4.64 3.80-5.11 10^6/uL Hemoglobin 13.6 11.5-16.0 g/dL Hematocrit 41 35-52 % Mean Corpuscular Volume 87 80-99 fL Mean Corpuscular Hemoglobin 29 25-34 pg Mean Corpuscular Hemoglobin Concent 34 32-36 g/dL Red Cell Distribution Width 12.7 10.0-14.5 % Platelet Count 235 130-400 10^3/uL Mean Platelet Volume 11.5 9.0-12.2 fL Immature Granulocyte % (Auto) 0 % Neutrophils (%) (Auto) 53 42-75 % Lymphocytes (%) (Auto) 38 12-44 % Monocytes (%) (Auto) 8 0-12 % Eosinophils (%) (Auto) 1 0-10 % Basophils (%) (Auto) 1 0-10 % Neutrophils # (Auto) 4.2 1.8-7.8 10^3/uL Lymphocytes # (Auto) 3.0 1.0-4.0 10^3/uL Monocytes # (Auto) 0.6 0.0-1.0 10^3/uL Eosinophils # (Auto) 0.1 0.0-0.3 10^3/uL Basophils # (Auto) 0.0 0.0-0.1 10^3/uL Immature Granulocyte # (Auto) 0.0 0.0-0.1 10^3/uL Sodium Level 140 135-145 MMOL/L Potassium Level 3.5 L 3.6-5.0 MMOL/L Chloride Level 106 98-107 MMOL/L Carbon Dioxide Level 22 21-32 MMOL/L Anion Gap 12 5-14 MMOL/L Blood Urea Nitrogen 9 7-18 MG/DL Creatinine 0.76 0.60-1.30 MG/DL Estimat Glomerular Filtration Rate > 60 BUN/Creatinine Ratio 12 Glucose Level 99 70-105 MG/DL Calcium Level 8.8 8.5-10.1 MG/DL Corrected Calcium 8.6 8.5-10.1 MG/DL Magnesium Level 2.0 1.6-2.4 MG/DL Total Bilirubin 0.5 0.1-1.0 MG/DL Aspartate Amino Transf (AST/SGOT) 23 5-34 U/L Alanine Aminotransferase (ALT/SGPT) 14 0-55 U/L Alkaline Phosphatase 75 40-136 U/L Total Creatine Kinase 128 29-168 U/L Creatine Kinase MB 1.0 <6.6 NG/ML Myoglobin 29.4 10.0-92.0 NG/ML Troponin I < 0.028 <0.028 NG/ML B-Type Natriuretic Peptide 29.1 <100.0 PG/ML Total Protein 7.7 6.4-8.2 GM/DL Albumin 4.2 3.2-4.5 GM/DL Amylase Level 63 25-125 U/L Lipase 41 8-78 U/L Procalcitonin 0.01 <0.10 NG/ML My Orders Orders - HERO ERWIN DO Cbc With Automated Diff (08/16/20 23:44) Magnesium (08/16/20 23:44) Ekg Tracing (08/16/20:44) Comprehensive Metabolic Panel (08/16/20 23:44) Myoglobin Serum (08/16/20 23:44) O2 (08/16/20 23:44) Monitor-Rhythm Ecg Trace Only (08/16/20:44) Ed Iv/Invasive Line Start (08/16/20:44) Creatine Kinase (08/16/20:44) Creatine Kinase Mb (08/16/20 23:44) Lipase (08/16/20 23:44) Amylase (08/16/20 23:44) BNP (08/16/20:44) Troponin I (08/16/20:44) Nitroglycerin 0.4 Mg Btl 25's (Nitrostat (08/16/20 23:45) Aspirin Chewable Tablet (Baby Aspirin Ch (08/16/20 23:45) Procalcitonin (Pct) (08/16/20 23:44) Ondansetron Injection (Zofran Injectio (08/17/20 00:00) Pantoprazole Injection (Protonix Injecti (08/17/20 00:00) Chest 1 View, Ap/Pa Only (08/17/20 00:01) Ct Chest W (08/17/20 00:35) Iohexol Injection (Omnipaque 350 Mg/Ml 1 (08/17/20 01:15) Received Contrast (Hold Metformin- Contr (08/17/20 01:15) Sodium Chloride Flush (Catheter Flush Sy (08/17/20 01:15) Ns (Ivpb) (Sodium Chloride 0.9% Ivpb Bag (08/17/20 01:15) Medications Given in ED Current Medications Medications Dose Ordered Sig/Jey Route Start Time Stop Time Status Last Admin Dose Admin Aspirin 324 mg ONCE ONCE PO 08/16/20 23:45 08/16/20 23:46 DC 08/16/20 23:56 324 MG Iohexol 100 ml ONCE ONCE IV 08/17/20 01:15 08/17/20 01:17 DC 08/17/20 01:14 68 ML Ondansetron HCl 4 mg ONCE ONCE IVP 08/17/20 00:00 08/17/20 00:01 DC 08/16/20 23:56 4 MG Pantoprazole 40 mg ONCE ONCE IV 08/17/20 00:00 08/17/20 00:01 DC 08/16/20 23:59 40 MG Sodium Chloride 10 ml NEEDED PRN IV 08/17/20 01:15 08/17/20 01:14 10 ML Sodium Chloride 100 ml ONCE ONCE IV 08/17/20 01:15 08/17/20 01:17 DC 08/17/20 01:14 80 ML Vital Signs/I&O 08/16/20 08/16/20 23:40 23:40 Temp 36.0 Pulse 90 Resp 18 B/P (MAP) 122/80 (94) Pulse Ox 100 O2 Delivery Room Air Room Air Blood Pressure Mean: 94 Progress Progress Note : Progress Note GIVEN ASPIRIN NTG HELD DUE TO BP IN 100'S SYSTOLIC. GIVEN ZOFRAN AND PROTONIX NAUSEA AND PAIN BEGINNING TO RESOLVE 129--RATES PAIN DOWN TO 4/10. WILL GIVE TORADOL FOR PAIN NO HYPOXIA NO DYSPNEA OR TACHYPNEA NO FEVER Initial ECG Impression Date: August 16, 2020 Initial ECG Impression Time: 23:48 Initial ECG Rate: 74 Initial ECG Rhythm: Normal Sinus Initial ECG Comparisson: Unchanged Diagnostic Imaging Comments CXR--RLL INFILTRATE, PENDING RADIOLOGIST REVIEW CT CHEST--MULTIPLE BILATERAL IRREGULARLY MARGINATED NODULES-REGIONS OF BRONCHIECTASIS. FINDINGS INDETERMINATE FOR INFECTIOUS, INFLAMMATORY, OR NEOPLASTIC ETIOLOGY. CAN BE SEEN WITH M.A.I. INFECTION. --PER [facility] VIA FAX AT [phone] Reviewed: Reviewed by Me Departure Communication (Admissions) 129--SPOKE WITH DR. BENNETT, ACCEPTS PT FOR ADMIT. WILL CONSULT CARDIOLOGY AND PULMONOLOGY IN AM Impression Primary Impression: Chest pain Additional Impressions: Bronchiectasis Pulmonary nodules Abnormal finding on CT scan Anxiety Pneumonia Failure of outpatient treatment COPD (chronic obstructive pulmonary disease) Disposition: ADMITTED INPATIENT Condition: Improved Admissions Decision to Admit Reason: Admit from ER (General) Decision to Admit/Date: August 17, 2020 Time/Decision to Admit Time: 01:30 Departure-Patient Inst. Referrals: NO,LOCAL PHYSICIAN (PCP/Family) Primary Care Physician HERO ERWIN DO August 17, 2020 00:08
[2020-08-17 00:15] LABS: ALBUMIN 4.2 GM/DL (3.2-4.5); CHLORIDE 106 MMOL/L (98-107); POTASSIUM 3.5 MMOL/L (3.6-5.0); SODIUM 140 MMOL/L (135-145)
[2020-08-17 00:16] LABS: AMYLASE 63 U/L (25-125); CALCIUM 8.8 MG/DL (8.5-10.1)
[2020-08-17 00:17] LABS: GLUCOSE 99 MG/DL (70-105); TOTAL PROTEIN 7.7 GM/DL (6.4-8.2)
[2020-08-17 00:18] LABS: CARBON DIOXIDE 22 MMOL/L (21-32)
[2020-08-17 00:19] LABS: BILIRUBIN,TOTAL 0.5 MG/DL (0.1-1.0)
[2020-08-17 00:21] LABS: ALKALINE PHOSPHATASE 75 U/L (40-136); CREATININE SERUM 0.76 MG/DL (0.60-1.30); GFR ESTIMATED > 60
[2020-08-17 00:22] LABS: BUN/CREATININE RATIO 12
[2020-08-17 00:24] LABS: ALANINE AMINOTRANSFERASE 14 U/L (0-55)
[2020-08-17 00:26] LABS: CREATINE KINASE 128 U/L (29-168); LIPASE 41 U/L (8-78)
[2020-08-17] MEDS ORDERED: NS 100 ML (IVPB) BAG IV ONE (01:15)
[2020-08-17] MEDS ORDERED: IOHEXOL 350 MG/ML 100 ML (OMNIPAQUE 350) VIAL IV ONE (01:15)
[2020-08-17] MEDS ORDERED: CATHETER FLUSH 10 ML SYR IV PRN (01:15)
[2020-08-17] MEDS ORDERED: HOLD METFORMIN - RECEIVED CONTRAST 20 ML VIAL IV SCH (01:15)
[2020-08-17] MEDS ORDERED: KETOROLAC 30 MG/ML VIAL IVP STA (01:31)
[2020-08-17] MEDS ORDERED: cefTRIAXone FOR IV USE 1,000 MG in WATER (STERILE) FOR INJECTION 10 ML IV ONE (01:45)
[2020-08-17] MEDS ORDERED: AZITHROMYCIN INJECTION 500 MG in NS (IVPB) 250 ML IV ONE (01:45)
[2020-08-17] MEDS ORDERED: NITROGLYCERIN 0.4 MG SL TABS BTL 25'S SL PRN (03:00)
[2020-08-17] MEDS ORDERED: KETOROLAC 30 MG/ML VIAL IVP PRN (03:00)
[2020-08-17] MEDS ORDERED: ACETAMINOPHEN 500 MG TAB (TYLENOL) PO PRN (03:00)
[2020-08-17] MEDS ORDERED: ONDANSETRON 4 MG/2 ML (SDV) Z0FRAN IVP PRN (03:00)
[2020-08-17] MEDS ORDERED: RT-ALBUTEROL SULF 2.5 MG/3 ML PRE-MIX VIAL INH PRN (03:15)
[2020-08-17 03:54] LABS: BASOPHILS % (AUTO) 1 % (0-10); EOSINOPHILS # (AUTO) 0.1 10^3/uL (0.0-0.3); EOSINOPHILS % (AUTO) 1 % (0-10); HEMATOCRIT 38 % (35-52); HEMOGLOBIN 12.4 g/dL (11.5-16.0); LYMPHOCYTES # (AUTO) 2.3 10^3/uL (1.0-4.0); LYMPHOCYTES % (AUTO) 35 % (12-44); MEAN CORPUSCULAR HEMOGLOBIN 29 pg (25-34); MEAN CORPUSCULAR HGB CONC 33 g/dL (32-36); MEAN CORPUSCULAR VOLUME 89 fL (80-99); MONOCYTES # (AUTO) 0.5 10^3/uL (0.0-1.0); MONOCYTES % (AUTO) 7 % (0-12); NEUTROPHILS # (AUTO) 3.7 10^3/uL (1.8-7.8); NEUTROPHILS % (AUTO) 57 % (42-75); PLATELET COUNT 203 10^3/uL (130-400); WHITE BLOOD COUNT 6.6 10^3/uL (4.3-11.0)
[2020-08-17 04:05] LABS: ALBUMIN 3.7 GM/DL (3.2-4.5); CHLORIDE 106 MMOL/L (98-107); POTASSIUM 3.5 MMOL/L (3.6-5.0); SODIUM 138 MMOL/L (135-145)
[2020-08-17 04:06] LABS: CALCIUM 8.1 MG/DL (8.5-10.1)
[2020-08-17 04:07] LABS: GLUCOSE 89 MG/DL (70-105)
[2020-08-17 04:08] LABS: TOTAL PROTEIN 6.6 GM/DL (6.4-8.2)
[2020-08-17 04:09] LABS: CARBON DIOXIDE 21 MMOL/L (21-32)
[2020-08-17 04:10] LABS: BILIRUBIN,TOTAL 0.4 MG/DL (0.1-1.0)
[2020-08-17 04:11] LABS: ALKALINE PHOSPHATASE 62 U/L (40-136); GFR ESTIMATED > 60
[2020-08-17 04:12] LABS: BUN/CREATININE RATIO 11
[2020-08-17 04:14] LABS: ALANINE AMINOTRANSFERASE 13 U/L (0-55)
--- NOTE | 2020-08-17 05:22 | Pulmonary Consultation ---
History of Present Illness History of Present Illness Date Seen by Provider: August 17, 2020 Time Seen by Provider: 05:18 Date of Admission History of Present Illness 40 y/o female with history of COPD presented to the ER with complaints of bilateral chest pain located under breasts, worse with deep inspiration. C/o brief episode of left arm numbness and tingling. Was seen in ER last week and treated for pneumonia. Currently complains of chest pain, rated 2/10, dull in nature. Denies any dizizness or lightheadedness, syncope peripheral edema. Allergies and Home Medications Allergies Coded Allergies: morphine (Unverified Allergy, Unknown, 03/09/16) Home Medications Aspirin 81 Mg Tablet.dr, 81 MG PO DAILY Prescribed by: MOR BENNETT on 08/17/20 152 Azithromycin 250 Mg Tablet, 250 MG PO DAILY Prescribed by: MOR BENNETT on 08/17/20 1526 Cefdinir 300 Mg Capsule, 300 MG PO BID Prescribed by: MOR BENNETT on 08/17/20 1526 Past Fhbjryu-Obcjru-Jslfox Hx Past Med/Social Hx: Reviewed and Corrections made Patient Social History Alcohol Use: Denies Use Drug of Choice: DENIES Smoking Status: Never a Smoker Recent Infectious Disease Expo: No Recent Hopitalizations: No Alcohol Use?: No Immunizations Up To Date Tetanus Booster (TDap): More than 5yrs Date of Pneumonia Vaccine: Jan 07, 2020 Date of Influenza Vaccine: Jan 07, 2020 Seasonal Allergies Seasonal Allergies: No Past Medical History Surgeries: Yes (HYSTERCTOMY/OVARIES INTACT; X 1) Appendectomy, Section, Hysterectomy, Tubal Ligation Respiratory: Yes Pneumonia, COPD Cardiac: No Neurological: No 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) Genitourinary: No Gastrointestinal: No Musculoskeletal: No Endocrine: No HEENT: No Cancer: No Psychosocial: No Integumentary: No Blood Disorders: No Review of Systems Time Seen by Provider: 10:37 Constitutional: No: Fever, Chills, Sweats, Weakness, Malaise, Other Eyes: No: Pain, Vision change, Conjunctivae inflammation, Eyelid inflammation, Other, Redness ENT: Nose congestion; No: Ear pain, Ear discharge, Nose pain, Nose discharge, Mouth pain, Mouth swelling, Throat pain, Throat swelling, Other Respiratory: SOB with excertion; No: Cough, Dry, Shortness of breath, Wheezing, Hemoptysis, Pleuritic Pain, Sputum, Wheezing, Other Cardiovascular: Chest Pain, Palpitations; No: Orthopnea, Paroxysmal Noc. Dyspnea, Edema, Lt Headedness, Other Sepsis Event Evaluation Height, Weight, BMI Height: 5'6.00" Weight: 115lbs. oz. 52.811247zv; 19.29 BMI Method:Stated Exam Exam Vital Signs Date Time Temp Pulse Resp B/P (MAP) Pulse Ox O2 Delivery O2 Flow Rate FiO2 08/17/20 04:05 36.9 55 18 100/65 (77) 98 Room Air 08/17/20 03:07 36.2 68 98 08/17/20 03:05 98 Room Air 08/17/20 02:50 36.2 68 16 104/70 (81) 98 Room Air 08/17/20 02:46 72 08/17/20 02:40 64 16 98/68 (94) 99 Room Air 08/16/20 23:40 Room Air 08/16/20 23:40 36.0 90 18 122/80 (94) 100 Room Air I & O 08/17/20 07:00 Intake Total 10 ml Balance 10 ml Height & Weight Height: 5'6.00" Weight: 115lbs. oz. 52.951234oa; 19.29 BMI Method:Stated General Appearance: No Apparent Distress, WD/WN, Anxious, Thin, Other (VERY ANXIOUS AND TALKS NON-STOP AT LENGTH. 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
--- NOTE | 2020-08-17 07:26 | Diagnostic Imaging Report ---
PROCEDURE: CT chest with contrast only. TECHNIQUE: Multiple contiguous axial images were obtained through the chest after administration of intravenous contrast. Auto Exposure Controls were utilized during the CT exam to meet ALARA standards for radiation dose reduction. INDICATION: Pneumonia. Cough and congestion There is some hyperexpansion consistent with COPD. There are mixed alveolar and interstitial infiltrates in both perihilar regions which have a nodular appearance. Similar findings are seen at both lung bases and in the right middle lobe. No large mass or alveolar consolidations are seen. There is no effusion or pneumothorax. There is no mediastinal mass or adenopathy. No large pulmonary embolus is evident. There is no acute bony abnormality. IMPRESSION: There is air trapping consistent with COPD. There are bilateral nodular infiltrates. These are nonspecific but can be seen with microbacteria avium complex infection. Other atypical pneumonias can produce these findings. These are not typical findings for COVID pneumonia but could be correlated with COVID tests. Follow-up is recommended. Report was faxed to [facility] nurse Infection Control by pierre at 7:25am. Dictated by: Dictated on workstation # [id number]
--- NOTE | 2020-08-17 07:29 | Diagnostic Imaging Report ---
INDICATION: Chest pain. TECHNIQUE: Single view chest 12:13 AM. CORRELATION STUDY: 08/11/2020 FINDINGS: The heart size, mediastinal configuration and pulmonary vascularity are within normal limits. Scattered bilateral pulmonary parenchymal densities are present. Includes multiple areas of nodularity. Findings are most pronounced at the right lung base along with a small pleural effusions. IMPRESSION: 1. Scattered bilateral pulmonary opacities and areas of nodularity. Nonspecific may reflect underlying multifocal pneumonia. Findings most pronounced at the right lung base. Small right pleural effusion. Short-term follow-up imaging however is recommended. Dictated by: Dictated on workstation # [id number]
[2020-08-17] MEDS ORDERED: ASPIRIN E.C. 81 MG (ECOTRIN) TAB PO SCH (09:00)
[2020-08-17] MEDS ORDERED: PANTOPRAZOLE 40 MG (PROTONIX) VIAL IV SCH (09:00)
--- NOTE | 2020-08-17 10:47 | Consultation-Cardiology ---
HPI-Cardiology Cardiology Consultation Date of Consultation 08/17/20 Date of Admission Time Seen by Provider: 05:18 Indication: Chest pain HPI Patient is a 40 y/o female with history of COPD. Presented to the ER with complaints of bilateral chest pain located under breasts, worse with deep inspiration. C/o brief episode of left arm numbness and tingling. Was seen in ER last week and treated for pneumonia. Currently complains of chest pain, rated 2/10, dull in nature. Denies any dizizness or lightheadedness, syncope peripheral edema. Home Medications & Allergies Allergies: Coded Allergies: morphine (Unverified Allergy, Unknown, 03/09/16) Home Medication List Reviewed: Yes VLX-Acyycl-Ctxswc Hx Patient Social History Marital Status: Recreational Drug Use: No Drug of Choice: DENIES Smoking Status: Never a Smoker Recent Hopitalizations: No Alcohol Use?: No Immunizations Up To Date Tetanus Booster (TDap): More than 5yrs Date of Pneumonia Vaccine: Jan 07, 2020 Date of Influenza Vaccine: Jan 07, 2020 Past Medical History COPD Family Medical History Significant Family History: No Pertinent Family Hx Family Medical Hx Noncontributory Review of Systems-General Review of Systems Constitutional: no symptoms reported, see HPI; No chills, No diaphoresis, No dizziness, No fever EENTM: see HPI, no symptoms reported; No blurred vision, No double vision Respiratory: see HPI, cough, dyspnea on exertion; No orthopnea; phlegm, short of breath Cardiovascular: see HPI, chest pain; No edema, No Hx of Intervention, No palpitations, No syncope, No vascular heart diseas Gastrointestinal: No abdominal pain, No constipation Genitourinary: no symptoms reported, see HPI; No dysuria, No frequency Musculoskeletal: no symptoms reported, see HPI Skin: no symptoms reported, see HPI Psychiatric/Neurological: See HPI, Anxiety, Numbness, Paresthesia, Tingling Reviewed Test Results Reviewed Test Results Lab Laboratory Tests 08/16/20 23:55: White Blood Count 7.9, Red Blood Count 4.64, Hemoglobin 13.6, Hematocrit 41, Mean Corpuscular Volume 87, Mean Corpuscular Hemoglobin 29, Mean Corpuscular Hemoglobin Concent 34, Red Cell Distribution Width 12.7, Platelet Count 235, Mean Platelet Volume 11.5, Immature Granulocyte % (Auto) 0, Neutrophils (%) (Auto) 53, Lymphocytes (%) (Auto) 38, Monocytes (%) (Auto) 8, Eosinophils (%) (Auto) 1, Basophils (%) (Auto) 1, Neutrophils # (Auto) 4.2, Lymphocytes # (Auto) 3.0, Monocytes # (Auto) 0.6, Eosinophils # (Auto) 0.1, Basophils # (Auto) 0.0, Immature Granulocyte # (Auto) 0.0, Sodium Level 140, Potassium Level 3.5L, Chloride Level 106, Carbon Dioxide Level 22, Anion Gap 12, Blood Urea Nitrogen 9, Creatinine 0.76, Estimat Glomerular Filtration Rate > 60, BUN/Creatinine Ratio 12, Glucose Level 99, Calcium Level 8.8, Corrected Calcium 8.6, Magnesium Level 2.0, Total Bilirubin 0.5, Aspartate Amino Transf (AST/SGOT) 23, Alanine Aminotransferase (ALT/SGPT) 14, Alkaline Phosphatase 75, Total Creatine Kinase 128, Creatine Kinase MB 1.0, Myoglobin 29.4, Troponin I < 0.028, B-Type Natriuretic Peptide 29.1, Total Protein 7.7, Albumin 4.2, Amylase Level 63, Lipase 41, Procalcitonin 0.01 08/17/20 03:30: White Blood Count 6.6, Red Blood Count 4.26, Hemoglobin 12.4, Hematocrit 38, Mean Corpuscular Volume 89, Mean Corpuscular Hemoglobin 29, Mean Corpuscular Hemoglobin Concent 33, Red Cell Distribution Width 12.7, Platelet Count 203, Mean Platelet Volume 12.0, Immature Granulocyte % (Auto) 0, Neutrophils (%) (Auto) 57, Lymphocytes (%) (Auto) 35, Monocytes (%) (Auto) 7, Eosinophils (%) (Auto) 1, Basophils (%) (Auto) 1, Neutrophils # (Auto) 3.7, Lymphocytes # (Auto) 2.3, Monocytes # (Auto) 0.5, Eosinophils # (Auto) 0.1, Basophils # (Auto) 0.0, Immature Granulocyte # (Auto) 0.0, Sodium Level 138, Potassium Level 3.5L, Chloride Level 106, Carbon Dioxide Level 21, Anion Gap 11, Blood Urea Nitrogen 8, Creatinine 0.70, Estimat Glomerular Filtration Rate > 60, BUN/Creatinine Ratio 11, Glucose Level 89, Calcium Level 8.1L, Corrected Calcium 8.3L, Total Bilirubin 0.4, Aspartate Amino Transf (AST/SGOT) 21, Alanine Aminotransferase (ALT/SGPT) 13, Alkaline Phosphatase 62, Total Protein 6.6, Albumin 3.7 08/17/20 06:47: ECG Impression ECG Initial ECG Rhythm: S.Abner Physical Exam Physical Exam Vital Signs Vital Signs - First Documented Capillary Refill : Less Than 3 Seconds Height, Weight, BMI Height: 5'6.00" Weight: 115lbs. oz. 52.838962un; 19.29 BMI Method:Stated General Appearance: No Apparent Distress, WD/WN, Anxious, Thin, Other (VERY ANXIOUS AND TALKS NON-STOP AT LENGTH. DRY, SHALLOW COUGH--RESOLVED SHORTLY AFTER ARRIVAL) Eyes: Bilateral Eye Normal Inspection, Bilateral Eye PERRL, Bilateral Eye EOMI HEENT: PERRL/EOMI Neck: Normal Inspection Respiratory: Chest Non Tender, No Accessory Muscle Use, No Respiratory Distress Cardiovascular: Regular Rate, Rhythm, No Edema, No JVD, No Murmur, Normal Peripheral Pulses Gastrointestinal: Normal Bowel Sounds, No Organomegaly, No Pulsatile Mass, Non Tender, Soft Back: Normal Inspection, No CVA Tenderness, No Vertebral Tenderness Extremity: Normal Capillary Refill, Normal Inspection, Normal Range of Motion, Non Tender, No Calf Tenderness, No Pedal Edema Neurologic/Psychiatric: Alert, Oriented x3, No Motor/Sensory Deficits, 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 Assessment/Plan Chest pain, nonspecific etiology, atypical in presentation. EKG showing sinus bradycardia with no acute ST changes. Cardiac enzymes negative. Continue to monitor. Sinus bradycardia, asymptomatic, heart rate better today, continue to monitor. COPD, management per Dr. Houston Multiple bilateral pulmonary nodules, management per Dr. Houston Anxiety Thank you for allowing us to participate in the management of Ms. Friend. This is Annetta Butler, as a scribe for Dr. Lewis. Patient was seen and evaluated with Annetta, has been doing well. No new complaint. No further episode of chest pain, reporting discomfort on deep inspiration Abnormal chest x-ray is managed by primary care team, questionable pulmonary nodules I recommend evaluating stress test as an outpatient. History of underlying anxiety. Clinical Quality Measures AMI/AHF: ASA po Prior to arrival: No ANNETTA HANSEN August 17, 2020 10:47 ZAYNAB LEWIS MD August 17, 2020 12:49
--- NOTE | 2020-08-17 11:36 | History & Physical ---
HPI History of Present Illness: 40 yo F that presented to ER with chest pain, left arm numbness and nausea. States that she was seen a couple days prior and was treated for PNA with doxycycline. States that since she started on her antibiotic she had not been feeling any different. She had taken her antibiotic and was laying down when she started to have the chest pain, left shoulder numbness and nausea about 15 mins after taking antibiotic. Patient denies ever having chest pain or heart problems in the past. States that she has 2 grandparents that had heart disease. Grandfather had valve replacement and she was told by her mother that grandmother had heart problems but no other specifics. She is a non smoker but mother was a heavy smoker. States that she has been diagnosed with COPD and has been following these lung nodules for several years and states that she has been told that they are stable in size. Previous CT chest in [place]. States that she has not had any further pain or numbness since getting the hospital. She is still having some chest tightness with breathing but attributes that to her PNA. Source: patient Date seen by provider: August 17, 2020 Time Seen by Provider: 10:30 Attending Physician Mor Woodall MD PCP No,Local Physician Consult Date of Admission August 17, 2020 at 01:30 Home Medications Home Medications Reviewed patient Home Medication Reconciliation performed by pharmacy medication reconciliations geotechnician and/or nursing. Patients Allergies have been reviewed. Allergies Coded Allergies: morphine (Unverified Allergy, Unknown, 03/09/16) ACC-Kclmsz-Lhkxzt Hx Patient Social History Living Status: Lives at home with Drug of Choice: DENIES Smoking Status: Never a Smoker Recent Hopitalizations: No Alcohol Use?: No Immunizations Up To Date Tetanus Booster (TDap): More than 5yrs Date of Pneumonia Vaccine: Jan 07, 2020 Date of Influenza Vaccine: Jan 07, 2020 Past Medical History COPD Family Medical History Significant Family History: No Pertinent Family Hx Review of Systems (CHC) Constitutional: No chills, No fever; malaise EENTM: nose congestion; No mouth pain, No nose pain, No throat pain Respiratory: cough, dyspnea on exertion; No orthopnea; short of breath Cardiovascular: chest pain; No edema, No palpitations Gastrointestinal: No abdominal pain, No constipation, No diarrhea, No loss of appetite; nausea; No vomiting Genitourinary: no symptoms reported; No dysuria, No frequency, No hematuria : No Musculoskeletal: no symptoms reported; No back pain, No joint pain, No muscle pain Skin: no symptoms reported; No lesions, No rash Psychiatric/Neurological: Denies Numbness; Tingling; Denies Weakness Reviewed Test Results Reviewed Test Results Lab Laboratory Tests Test 08/16/20 23:55 08/17/20 03:30 08/17/20 06:47 Range/Units White Blood Count 7.9 6.6 4.3-11.0 10^3/uL Red Blood Count 4.64 4.26 3.80-5.11 10^6/uL Hemoglobin 13.6 12.4 11.5-16.0 g/dL Hematocrit 41 38 35-52 % Mean Corpuscular Volume 87 89 80-99 fL Mean Corpuscular Hemoglobin 29 29 25-34 pg Mean Corpuscular Hemoglobin Concent 34 33 32-36 g/dL Red Cell Distribution Width 12.7 12.7 10.0-14.5 % Platelet Count 235 203 130-400 10^3/uL Mean Platelet Volume 11.5 12.0 9.0-12.2 fL Immature Granulocyte % (Auto) 0 0 % Neutrophils (%) (Auto) 53 57 42-75 % Lymphocytes (%) (Auto) 38 35 12-44 % Monocytes (%) (Auto) 8 7 0-12 % Eosinophils (%) (Auto) 1 1 0-10 % Basophils (%) (Auto) 1 1 0-10 % Neutrophils # (Auto) 4.2 3.7 1.8-7.8 10^3/uL Lymphocytes # (Auto) 3.0 2.3 1.0-4.0 10^3/uL Monocytes # (Auto) 0.6 0.5 0.0-1.0 10^3/uL Eosinophils # (Auto) 0.1 0.1 0.0-0.3 10^3/uL Basophils # (Auto) 0.0 0.0 0.0-0.1 10^3/uL Immature Granulocyte # (Auto) 0.0 0.0 0.0-0.1 10^3/uL Sodium Level 140 138 135-145 MMOL/L Potassium Level 3.5 L 3.5 L 3.6-5.0 MMOL/L Chloride Level 106 106 98-107 MMOL/L Carbon Dioxide Level 22 21 21-32 MMOL/L Anion Gap 12 11 5-14 MMOL/L Blood Urea Nitrogen 9 8 7-18 MG/DL Creatinine 0.76 0.70 0.60-1.30 MG/DL Estimat Glomerular Filtration Rate > 60 > 60 BUN/Creatinine Ratio 12 11 Glucose Level 99 89 70-105 MG/DL Calcium Level 8.8 8.1 L 8.5-10.1 MG/DL Corrected Calcium 8.6 8.3 L 8.5-10.1 MG/DL Magnesium Level 2.0 1.6-2.4 MG/DL Total Bilirubin 0.5 0.4 0.1-1.0 MG/DL Aspartate Amino Transf (AST/SGOT) 23 21 5-34 U/L Alanine Aminotransferase (ALT/SGPT) 14 13 0-55 U/L Alkaline Phosphatase 75 62 40-136 U/L Total Creatine Kinase 128 29-168 U/L Creatine Kinase MB 1.0 <6.6 NG/ML Myoglobin 29.4 10.0-92.0 NG/ML Troponin I < 0.028 <0.028 NG/ML B-Type Natriuretic Peptide 29.1 <100.0 PG/ML Total Protein 7.7 6.6 6.4-8.2 GM/DL Albumin 4.2 3.7 3.2-4.5 GM/DL Amylase Level 63 25-125 U/L Lipase 41 8-78 U/L Procalcitonin 0.01 <0.10 NG/ML Physical Exam-(CHC) Physical Exam Vital Signs VS - Last 72 Hours, by Label 08/16/20 08/16/20 08/17/20 08/17/20 23:40 23:40 02:40 02:46 Temp 36.0 Pulse 90 64 72 Resp 18 16 B/P (MAP) 122/80 (94) 98/68 (94) Pulse Ox 100 99 O2 Delivery Room Air Room Air Room Air 08/17/20 08/17/20 08/17/20 08/17/20 02:50 03:05 03:07 04:05 Temp 36.2 36.2 36.9 Pulse 68 68 55 Resp 16 18 B/P (MAP) 104/70 (81) 100/65 (77) Pulse Ox 98 98 98 98 O2 Delivery Room Air Room Air Room Air 08/17/20 08/17/20 08/17/20 06:41 08:00 08:07 Temp 36.6 Pulse 61 85 Resp 18 B/P (MAP) 103/55 (71) Pulse Ox 95 O2 Delivery Room Air Room Air Capillary Refill : Less Than 3 Seconds General Appearance: WD/WN, no apparent distress, thin HEENT: PERRL/EOMI Neck: non-tender, full range of motion, supple Respiratory: chest non-tender, lungs clear, normal breath sounds, no respiratory distress, no accessory muscle use Cardiovascular: normal peripheral pulses, regular rate, rhythm, no edema, no murmur Gastrointestinal: normal bowel sounds, non tender, soft, no organomegaly Back: no CVA tenderness, no vertebral tenderness Extremities: normal range of motion, non-tender, normal inspection, no pedal edema, no calf tenderness, normal capillary refill Neurologic/Psychiatric: research consultant II-XII nml as tested, no motor/sensory deficits, alert, normal mood/affect, oriented x 3 Skin: normal color, warm/dry Lymphatic: no adenopathy Assessment/Plan Assessment/Plan Admission Status: Observation (1) Atypical chest pain Status: Acute Assessment & Plan: - Dr Lewis was consulted out of the ER, appreciate recommendations, CE neg (2) COPD (chronic obstructive pulmonary disease) Status: Acute Assessment & Plan: - Continue MAT protocol, will titrate oxygen as tolerated, IV antibiotics and steroids Qualifiers: Qualified Codes: J42 - Unspecified chronic bronchitis (3) Pulmonary nodules Status: Acute Assessment & Plan: - Patient states that she has had multiple CT scans that have demonstrated stablility, Dr Houston consulted and recommends followup CT 2-3 months (4) Pneumonia Status: Acute Assessment & Plan: - Continue IV antibiotics, will transition to PO at discharge Qualifiers: Qualified Codes: J18.9 - Pneumonia, unspecified organism Clinical Quality Measures AMI/AHF: ASA po Prior to arrival: No MOR WOODALL MD August 17, 2020 11:36
[2020-08-17] MEDS ORDERED: DOXY100C2 PO (13:25)
--- NOTE | 2020-08-17 15:24 | Discharge Summary ---
Diagnosis/Chief Complaint Date of Admission August 17, 2020 at 01:30 Date of Discharge 08/17/20 Admission Diagnosis Admission Diagnosis See problem list Discharge Diagnosis See Below Problems/Diagnosis: (1) Atypical chest pain Assessment & Plan: - Dr Lewis was consulted out of the ER, appreciate recommendations, CE neg, Patient to see Dr Lewis for stress testing Status: Acute (2) COPD (chronic obstructive pulmonary disease) Assessment & Plan: - Continue MAT protocol, will titrate oxygen as tolerated, IV antibiotics and steroids, Has appt with Dr Pruitt next week Qualifiers: Qualified Codes: J42 - Unspecified chronic bronchitis Status: Acute (3) Pulmonary nodules Assessment & Plan: - Patient states that she has had multiple CT scans that have demonstrated stablility, Dr Houston consulted and recommends followup CT 2-3 months Status: Acute (4) Pneumonia Assessment & Plan: - Continue IV antibiotics, will transition to PO at discha rge Qualifiers: Qualified Codes: J18.9 - Pneumonia, unspecified organism Status: Acute Chief Complaint/HPI Chief Complaint/HPI 40 yo F that presented to ER with chest pain, left arm numbness and nausea. States that she was seen a couple days prior and was treated for PNA with doxycycline. States that since she started on her antibiotic she had not been feeling any different. She had taken her antibiotic and was laying down when she started to have the chest pain, left shoulder numbness and nausea about 15 mins after taking antibiotic. Patient denies ever having chest pain or heart problems in the past. States that she has 2 grandparents that had heart disease. Grandfather had valve replacement and she was told by her mother that grandmother had heart problems but no other specifics. She is a non smoker but mother was a heavy smoker. States that she has been diagnosed with COPD and has been following these lung nodules for several years and states that she has been told that they are stable in size. Previous CT chest in [place]. States that she has not had any further pain or numbness since getting the hospital. She is still having some chest tightness with breathing but attributes that to her PNA. Discharge Summary-Simple/Stand Consultations Dr Lewis: Cardiology Dr Houston: Pulm Discharge Physical Examination Allergies: Coded Allergies: morphine (Unverified Allergy, Unknown, 03/09/16) Vitals & I&Os Vital Sign - Last 12Hours Date Time Temp Pulse Resp B/P (MAP) Pulse Ox O2 Delivery O2 Flow Rate FiO2 08/17/20 12:43 50 08/17/20 11:38 36.4 16 94/61 (72) 98 Room Air General Appearance: Alert, Oriented X3, Cooperative, No Acute Distress HEENT: Mucous Memb Moist/[place] Respiratory: Clear to Auscultation, Normal Air Movement Cardiovascular: Regular Rate, No Murmurs Abdominal: Normal Bowel Sounds, Soft, No Tenderness, No Masses Extremities: No Edema, No Tenderness/Swelling Skin: No Rashes, No Breakdown Neuro: Normal Speech, Strength at 5/5 X4 Ext, Sensation Intact, Cranial Nerves 3-12 NL Psych/Mental Status: Mental Status NL, Mood NL Hospital Course Was the Problem List Reviewed?: Yes See final discharge diagnosis. Discussion & Recommendations 40 yo F presented to ER with chest pain after diagnoses of PNA several days ago. She was continued on IV antibiotics and was seen by Dr Lewis for chest pain. She will have stress testing as outpatient. Patient was also noted to have nodules on CT and she is aware of this and has been followed for several years and has shown stability in the nodules. Dr Houston ordered Anti-trypsin and IgG labs which are send out and will be back later. Will send patient home with close f.u with PCP. Discharge Condition at discharge stable Instructions to patient/family Please see electronic discharge instructions given to patient. Discharge Medications Reviewed and agree with Discharge Medication list on patient's Discharge Instruction sheet Clinical Quality Measures AMI/AHF: ASA po Prior to arrival: No Copy Copies To 1: Abdirizak BAHENA HOLLY R MD August 17, 2020 15:24
[2020-08-17] MEDS ORDERED: CEFD300C3 PO (15:26)
[2020-08-17] MEDS ORDERED: AZIT250T12 PO (15:26)
[2020-08-17] MEDS ORDERED: ASPI-1238 PO (15:26)
--- NOTE | 2020-08-17 15:28 | Discharge Summary ---
Discharge [facility] Reconcile Patient Problems Problems Reviewed?: Yes Discharge Medications New, Converted or Re-Newed RX: Transmitted to Pharmacy New Medications: Azithromycin (Azithromycin) 250 Mg Tablet 250 MG PO DAILY, #4 TAB Cefdinir (Cefdinir) 300 Mg Capsule 300 MG PO BID, #8 CAP Aspirin (Aspirin EC) 81 Mg Tablet. 81 MG PO DAILY, #30 TAB Discontinued Medications: Doxycycline Hyclate (Doxycycline Hyclate) 100 Mg Capsule 100 MG PO BID, CAP FILLED 08-11-2020 #20/ DAY SUPPLY Patient Instructions Goal/Follow Up Appt: Keep your appt with Dr Pruitt on 08/25 Patient Instructions: - Make sure you complete your antibiotics Activity & Diet Discharge Diet: Cardiac Diet Activity as Tolerated: Yes MOR BENNETT MD August 17, 2020 15:27
[2020-08-17] MEDS ORDERED: cefTRIAXone 1,000 MG/SWFI 10 ML IV PUSH IV SCH ×2 (21:00)
[2020-08-17] MEDS ORDERED: AZITHROMYCIN 500 MG/NS 250 ML IVPB IV SCH ×2 (21:00)
[2020-08-18] MEDS ORDERED: PANTOPRAZOLE 40 MG (PROTONIX) TAB PO SCH (09:00)
== END 2020-08-17 15:22 | disposition home or self-care (01) ==
LOC: EDUNIT# 23:38 → ER 23:41 → CSD 23:42 → UNDOADMOB 08-17 01:30 → CSD 08-17 06:25 → 4TH 08-17 06:25 → UNDODISOB 08-17 17:45
PROVIDERS: ADMIT Family Medicine; ATTEND Family Medicine
DX: R07.89 Other chest pain (principal); J47.9 Bronchiectasis, uncomplicated; J18.9 Pneumonia, unspecified organism; R91.1 Solitary pulmonary nodule; F41.9 Anxiety disorder, unspecified; Z88.5 Allergy status to narcotic agent; Z79.899 Other long term (current) drug therapy; Z90.89 Acquired absence of other organs; Z90.710 Acquired absence of both cervix and uterus; Z98.51 Tubal ligation status
CPT/HCPCS: 36415; 71045; 71260; 80053; 82103; 82150; 82550; 82553; 82784; 82785; 83690; 83735; 83874; 83880; 84145; 84484; 85025; 93005; 93041; 96365; 96375

== ENCOUNTER 2021-04-09 12:24 | Emergency (ER) | payer MEDICARE ==
[~2021-04-09] VITALS: Ht 167 cm; Wt 52.0 kg
[~2021-04-09 12:24] MED LIST changes: +ASPI-1238 PO; +CEFD300C3 PO; -DOXY100C2 PO; +DOXY100C5 PO
[2021-04-09 12:34] VITALS: BP 103/66
--- NOTE | 2021-04-09 12:56 | Diagnostic Imaging Report ---
EXAM: Portable AP chest at 12:50 PM INDICATION: Chest pain FINDINGS: The heart size is within normal limits and stable when compared to 08/17/2020. The previous study did suggest bilateral pneumonia, primarily involving the lung bases. On this exam, the lung bases do seem better aerated. However, there are new patchy areas of pneumonia/atelectasis in each mid lung and in the right upper lobe. There is no pleural effusion identified. The mediastinum is not widened. The osseous structures are intact. IMPRESSION: There is recurrent bilateral pneumonia/atelectasis. Dictated by: Dictated on workstation # [id number]
[2021-04-09 13:10] LABS: BASOPHILS % (AUTO) 0 % (0-10); EOSINOPHILS % (AUTO) 1 % (0-10); HEMATOCRIT 39 % (35-52); HEMOGLOBIN 12.5 g/dL (11.5-16.0); LYMPHOCYTES # (AUTO) 1.5 10^3/uL (1.0-4.0); LYMPHOCYTES % (AUTO) 26 % (12-44); MEAN CORPUSCULAR HEMOGLOBIN 29 pg (25-34); MEAN CORPUSCULAR HGB CONC 32 g/dL (32-36); MEAN CORPUSCULAR VOLUME 90 fL (80-99); MONOCYTES # (AUTO) 0.4 10^3/uL (0.0-1.0); MONOCYTES % (AUTO) 6 % (0-12); NEUTROPHILS # (AUTO) 3.9 10^3/uL (1.8-7.8); NEUTROPHILS % (AUTO) 67 % (42-75); PLATELET COUNT 213 10^3/uL (130-400); WHITE BLOOD COUNT 5.9 10^3/uL (4.3-11.0)
--- NOTE | 2021-04-09 13:11 | ED Cardiac General ---
History of Present Illness General Chief Complaint: Chest Pain Stated Complaint: COUGH,CP Nursing Triage Note: PT STATES COUGH SINCE BEFORE [facility], HAS BEEN SEEN AT THE CLINIC AND TESTED NEG FOR COVID LAST WEEK, CONTINUED COUGH AND CP. HX OF COPD. History of Present Illness Date Seen by Provider: Apr 09, 2021 Time Seen by Provider: 12:30 Initial Comments 40-year-old female with autoimmune disorder presents for intermittent cough and congestion for the last week. She has been tested for Covid at [facility] which was negative. She has a history of COPD from exposure to living [place] to a [place] plant. She denies smoking. No fevers. She has received her COVID vaccines. Hx of Pneumonia. Has inhaler at home, hasn't used it today but has used 2 times daily for last few days. Timing/Duration: changing over time, intermittent Severity: mild (related to coughing. ) NTG SL TURN SUPERVISOR: No ASA po TURN SUPERVISOR: Yes Allergies and Home Medications Allergies Coded Allergies: morphine (Unverified Allergy, Unknown, 03/09/16) Patient Home Medication List Home Medication List Reviewed: Yes Amoxicillin/Potassium Clav (Augmentin 875-125 Tablet) 1 Each Tablet, 1 EACH PO BID Prescribed by: MINERVA GROVES on 04/09/21 1441 Aspirin (Aspirin EC) 81 Mg Tablet.dr, 81 MG PO DAILY Prescribed by: MOR BENNETT on 08/17/20 1526 Azithromycin (Azithromycin) 250 Mg Tablet, 250 MG PO DAILY Prescribed by: MOR BENNETT on 08/17/20 1526 Cefdinir (Cefdinir) 300 Mg Capsule, 300 MG PO BID Prescribed by: MOR BENNETT on 08/17/20 1526 Review of Systems Review of Systems Constitutional: see HPI; No fever; malaise EENTM: No Symptoms Reported, See HPI Respiratory: See HPI, Cough Cardiovascular: No Symptoms Reported, See HPI; Denies Chest Pain Gastrointestinal: No Symptoms Reported, See HPI Genitourinary: No Symptoms Reported, See HPI All Other Systems Reviewed Negative Unless Noted: Yes Past Intmjwp-Uiqfrl-Hetibh Hx Immunizations Up To Date Tetanus Booster (TDap): More than 5yrs Seasonal Allergies Seasonal Allergies: No Past Medical History Surgeries: Yes (HYSTERCTOMY/OVARIES INTACT; X 1) Appendectomy, Section, Hysterectomy, Tubal Ligation Respiratory: Yes Pneumonia, COPD Cardiac: No Neurological: No Reproductive Disorders: No ACT TUTOR 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 oz. 52.944058jo; 18.00 BMI Method:Stated General Appearance: No Apparent Distress, WD/WN HEENT: PERRL/EOMI, TMs Normal, Normal ENT Inspection, Pharynx Normal Neck: Full Range of Motion, Normal Inspection, Non Tender, Supple Respiratory: Chest Non Tender, Lungs Clear, Normal Breath Sounds Cardiovascular: Regular Rate, Rhythm, No Edema, No Murmur, Normal Peripheral Pulses Gastrointestinal: Normal Bowel Sounds, Non Tender Extremity: Normal Capillary Refill, Normal Inspection, Normal Range of Motion, Non Tender, No Pedal Edema Neurologic/Psychiatric: Alert, Oriented x3, No Motor/Sensory Deficits, Normal Mood/Affect Progress/Results/Core Measures Results/Orders Lab Results Laboratory Tests Test 04/09/21 12:55 04/09/21 13:00 04/09/21 14:15 Range/Units White Blood Count 5.9 4.3-11.0 10^3/uL Red Blood Count 4.30 3.80-5.11 10^6/uL Hemoglobin 12.5 11.5-16.0 g/dL Hematocrit 39 35-52 % Mean Corpuscular Volume 90 80-99 fL Mean Corpuscular Hemoglobin 29 25-34 pg Mean Corpuscular Hemoglobin Concent 32 32-36 g/dL Red Cell Distribution Width 12.5 10.0-14.5 % Platelet Count 213 130-400 10^3/uL Mean Platelet Volume 11.0 9.0-12.2 fL Immature Granulocyte % (Auto) 0 % Neutrophils (%) (Auto) 67 42-75 % Lymphocytes (%) (Auto) 26 12-44 % Monocytes (%) (Auto) 6 0-12 % Eosinophils (%) (Auto) 1 0-10 % Basophils (%) (Auto) 0 0-10 % Neutrophils # (Auto) 3.9 1.8-7.8 10^3/uL Lymphocytes # (Auto) 1.5 1.0-4.0 10^3/uL Monocytes # (Auto) 0.4 0.0-1.0 10^3/uL Eosinophils # (Auto) 0.0 0.0-0.3 10^3/uL Basophils # (Auto) 0.0 0.0-0.1 10^3/uL Immature Granulocyte # (Auto) 0.0 0.0-0.1 10^3/uL Prothrombin Time 13.4 12.2-14.7 SEC INR Comment 1.0 0.8-1.4 Activated Partial Thromboplast Time 32 24-35 SEC Sodium Level 142 135-145 MMOL/L Potassium Level 3.7 3.6-5.0 MMOL/L Chloride Level 104 98-107 MMOL/L Carbon Dioxide Level 26 21-32 MMOL/L Anion Gap 12 5-14 MMOL/L Blood Urea Nitrogen 8 7-18 MG/DL Creatinine 0.66 0.60-1.30 MG/DL Estimat Glomerular Filtration Rate 99 BUN/Creatinine Ratio 12 Glucose Level 93 70-105 MG/DL Calcium Level 8.8 8.5-10.1 MG/DL Corrected Calcium 8.9 8.5-10.1 MG/DL Magnesium Level 1.9 1.6-2.4 MG/DL Total Bilirubin 0.4 0.1-1.0 MG/DL Aspartate Amino Transf (AST/SGOT) 18 5-34 U/L Alanine Aminotransferase (ALT/SGPT) 9 0-55 U/L Alkaline Phosphatase 76 40-136 U/L Myoglobin 27.5 10.0-92.0 NG/ML Troponin I < 0.028 <0.028 NG/ML Total Protein 7.3 6.4-8.2 GM/DL Albumin 3.9 3.2-4.5 GM/DL Influenza Type A Antigen NEGATIVE NEGATIVE Influenza Type B Antigen NEGATIVE NEGATIVE SARS-CoV-2 RNA (RT-PCR) Negative Negative D-Dimer < 0.22 0.00-0.49 UG/ML My Orders Orders - MINERVA GROVES Cbc With Automated Diff (04/09/21 12:37) Magnesium (04/09/21 12:37) Chest 1 View, Ap/Pa Only (04/09/21 12:37) Ekg Tracing (04/09/21 12:37) Comprehensive Metabolic Panel (04/09/21 12:37) Myoglobin Serum (04/09/21 12:37) Protime With Inr (04/09/21 12:37) Partial Thromboplastin Time (04/09/21 12:37) O2 (04/09/21 12:37) Monitor-Rhythm Ecg Trace Only (04/09/21 12:37) Ed Iv/Invasive Line Start (04/09/21 12:37) Troponin I Jazmyn (04/09/21 12:37) Influenza A & B Antigens (04/09/21 12:54) Covid 19 Inhouse Test (04/09/21 12:55) Ceftriaxone 1 Gm Pre-Mix (Rocephin 1 Gm (04/09/21 13:15) Azithromycin Injection (Zithromax Inject (04/09/21 13:15) Coronavirus Sars-Cov-2 So 2018 (04/09/21 12:55) Fibrin Degradation Products (04/09/21 13:47) Medications Given in ED Current Medications Medications Dose Ordered Sig/Jey Route Start Time Stop Time Status Last Admin Dose Admin Azithromycin 500 mg/Sodium Chloride 255 ml @ 250 mls/hr ONCE ONCE IV 04/09/21 13:15 04/09/21 14:16 DC 04/09/21 14:03 250 MLS/HR Ceftriaxone Sodium/Dextrose 50 ml @ 100 mls/hr ONCE ONCE IV 04/09/21 13:15 04/09/21 13:44 DC 04/09/21 14:03 100 MLS/HR Vital Signs/I&O 04/09/21 04/09/21 12:34 13:08 Temp 36.4 Pulse 72 Resp 18 B/P (MAP) 103/66 (78) Pulse Ox 100 O2 Delivery Room Air Room Air Blood Pressure Mean: 78 Progress Progress Note : Time: 12:30 Progress Note Patient seen and evaluated, will obtain EKG, labs and chest x-ray. 1315 Chest xay shows Bilat Pneumonia, will give Rocephin and Azithromycin. 1430 all labs normal. Patient reports no worsening of symptoms. Discharge instructions and return precautions reviewed with the patient Diagnostic Imaging Diagonstic Imaging: Xray Plain Films/CT/US/NM/MRI: chest Comments NAME: RANDOLPH KAUFMAN [facility] REC#: [id number] PT STATUS: REG ER : 1980 PHYSICIAN: MINERVA GROVES ADMIT DATE: 04/09/21/ER Draft Date of Exam:04/09/21 CHEST 1 VIEW, AP/PA ONLY EXAM: Portable AP chest at 12:50 PM INDICATION: Chest pain FINDINGS: The heart size is within normal limits and stable when compared to 08/17/2020. The previous study did suggest bilateral pneumonia, primarily involving the lung bases. On this exam, the lung bases do seem better aerated. However, there are new patchy areas of pneumonia/atelectasis in each mid lung and in the right upper lobe. There is no pleural effusion identified. The mediastinum is not widened. The osseous structures are intact. IMPRESSION: There is recurrent bilateral pneumonia/atelectasis. Dictated on workstation # [id number] Dict: 04/09/21 1252 Trans: 04/09/21 1255 [facility] [id number] Interpreted by: SHIRLEY BRYANT MD Electronically signed by: Reviewed: Reviewed by Me Departure Impression Primary Impression: Pneumonia Qualified Codes: J18.9 - Pneumonia, unspecified organism Additional Impressions: COPD (chronic obstructive pulmonary disease) Qualified Codes: J44.0 - Chronic obstructive pulmonary disease with (acute) lower respiratory infection Cough Disposition: HOME, SELF-CARE Condition: Improved Departure-Patient Inst. Decision time for Depature: 14:15 Referrals: [facility],LOCAL PHYSICIAN (PCP) Primary Care Physician Patient Instructions: Cough, Adult (DC), Community-Acquired Pneumonia, Adult (DC) Add. Discharge Instructions: Take antibiotics as prescribed. Use your albuterol inhaler 2 puffs every 4-6 hours as needed. Increase fluid intake, 16 ounces every 2 hours while awake. Take aspirin 81 mg once daily. Follow-up with your primary care provider if symptoms are not improving or worsen. Return to the emergency department for new, urgent healthcare needs. All discharge instructions reviewed with patient and/or family. Voiced understanding. Scripts Amoxicillin/Potassium Clav (Augmentin 875-125 Tablet) 1 Each Tablet 1 EACH PO BID, #20 TAB 0 Refills Prov: MINERVA GROVES 04/09/21 MINERVA GROVES Apr 09, 2021 13:11
[2021-04-09] MEDS ORDERED: cefTRIAXone 1 GM PRE-MIX 50 ML IV ONE (13:15)
[2021-04-09] MEDS ORDERED: AZITHROMYCIN INJECTION 500 MG in NS (IVPB) 250 ML IV ONE (13:15)
[2021-04-09 13:21] LABS: PROTHROMBIN TIME PATIENT 13.4 SEC (12.2-14.7)
[2021-04-09 13:26] LABS: ALBUMIN 3.9 GM/DL (3.2-4.5); POTASSIUM 3.7 MMOL/L (3.6-5.0)
[2021-04-09 13:27] LABS: CALCIUM 8.8 MG/DL (8.5-10.1)
[2021-04-09 13:29] LABS: TOTAL PROTEIN 7.3 GM/DL (6.4-8.2)
[2021-04-09 13:30] LABS: BILIRUBIN,TOTAL 0.4 MG/DL (0.1-1.0)
[2021-04-09 13:32] LABS: CREATININE SERUM 0.66 MG/DL (0.60-1.30)
[2021-04-09 13:35] LABS: MAGNESIUM 1.9 MG/DL (1.6-2.4)
[2021-04-09] MEDS ORDERED: AMOX-358 PO (14:41)
== END 2021-04-09 15:31 | disposition home or self-care (01) ==
LOC: EDUNIT# 12:24 → ER 12:25
DX: J18.9 Pneumonia, unspecified organism (principal); J44.9 Chronic obstructive pulmonary disease, unspecified; Z20.822 Contact with and (suspected) exposure to COVID-19; Z79.82 Long term (current) use of aspirin
CPT/HCPCS: 36415; 71045; 80053; 83735; 83874; 84484; 85025; 85379; 85610; 85730; 87635; 87636; 87804; 93005; 93041

== ENCOUNTER 2021-06-07 08:32 | Emergency (ER) | payer MEDICARE ==
[~2021-06-07] VITALS: Ht 137 cm; Wt 115.0 kg
[~2021-06-07 08:32] MED LIST changes: +AMOX-358 PO
[2021-06-07 08:35] VITALS: BP 131/83
== END 2021-06-07 09:30 | disposition left against medical advice (07) ==
LOC: EDUNIT# 08:32 → ER 08:33
DX: M54.2 Cervicalgia (principal)
CPT/HCPCS: 99281

== ENCOUNTER 2021-07-16 14:30 | Emergency (ER) | payer MEDICARE ==
[~2021-07-16] VITALS: Ht 167.7 cm; Wt 52.1 kg
[2021-07-16 15:41] LABS: BASOPHILS % (AUTO) 0 % (0-10); EOSINOPHILS # (AUTO) 0.1 10^3/uL (0.0-0.3); EOSINOPHILS % (AUTO) 1 % (0-10); HEMATOCRIT 43 % (35-52); HEMOGLOBIN 14.1 g/dL (11.5-16.0); LYMPHOCYTES # (AUTO) 1.9 X 10^3 (1.0-4.0); LYMPHOCYTES % (AUTO) 21 % (12-44); MEAN CORPUSCULAR HEMOGLOBIN 29 pg (25-34); MEAN CORPUSCULAR HGB CONC 33 g/dL (32-36); MEAN CORPUSCULAR VOLUME 89 fL (80-99); MEAN PLATELET VOLUME 10.7 fL (9.0-12.2); MONOCYTES # (AUTO) 0.7 X 10^3 (0.0-1.0); MONOCYTES % (AUTO) 8 % (0-12); NEUTROPHILS # (AUTO) 6.4 X 10^3 (1.8-7.8); NEUTROPHILS % (AUTO) 70 % (42-75); PLATELET COUNT 280 10^3/uL (130-400); WHITE BLOOD COUNT 9.1 10^3/uL (4.3-11.0)
[2021-07-16 15:49] LABS: ALBUMIN 4.1 GM/DL (3.2-4.5); POTASSIUM 4.1 MMOL/L (3.6-5.0)
[2021-07-16 15:50] LABS: CALCIUM 9.1 MG/DL (8.5-10.1)
[2021-07-16 15:52] LABS: TOTAL PROTEIN 7.6 GM/DL (6.4-8.2)
[2021-07-16 15:53] LABS: BILIRUBIN,TOTAL 0.4 MG/DL (0.1-1.0)
[2021-07-16 15:55] LABS: CREATININE SERUM 0.71 MG/DL (0.60-1.30)
--- NOTE | 2021-07-16 16:09 | Diagnostic Imaging Report ---
INDICATION: Cough and shortness of breath. COMPARISON: 04/09/2021. FINDINGS: Heart size is normal. There are persistent patchy bilateral pulmonary infiltrates. There is no pleural effusion or pneumothorax. The mediastinum is unremarkable. IMPRESSION: Persistent patchy bilateral pulmonary infiltrates possibly chronic sequela of Covid. Recommend clinical correlation. Dictated by: Dictated on workstation # [id number]
[2021-07-16] MEDS ORDERED: ROCURONIUM 10 MG/ML 5 ML SYRINGE IV ONE (16:15)
[2021-07-16] MEDS ORDERED: PRD20T PO (16:23)
--- NOTE | 2021-07-16 16:24 | ED Cough/URI ---
General Chief Complaint: Cough/Cold/Flu Symptoms Stated Complaint: DX W/ PNA, CP/SOB WORSE Source: patient Exam Limitations: no limitations History of Present Illness Date Seen by Provider: Jul 16, 2021 Time Seen by Provider: 15:27 Initial Comments Here with persistent cough over the last several days. Diagnosed with pneumonia and started on doxycycline. States that she is not better after 3 days of that and came here for further evaluation. She did have Covid in May and has had some chronic lung problems both before and worsening after the Covid infection. She is vaccinated and boosted. She has tried albuterol metered-dose inhaler at home and that did not help much. She is not hypoxic nor febrile. She wanted to make sure that she did not have worsening pneumonia. Timing/Duration: week, getting worse Severity/Quality: dry cough Prior Episodes/Possible Cause: occasional episodes Modifying Factors: Improves With Albuterol Inhaler Associated Symptoms: cough, shortness of breath Allergies and Home Medications Allergies Coded Allergies: morphine (Unverified Allergy, Unknown, 03/09/16) Patient Home Medication List Home Medication List Reviewed: Yes Amoxicillin/Potassium Clav (Augmentin 875-125 Tablet) 1 Each Tablet, 1 EACH PO BID Prescribed by: MINERVA GROVES on 04/09/21 1441 Aspirin (Aspirin EC) 81 Mg Tablet.dr, 81 MG PO DAILY Prescribed by: MOR BENNETT on 08/17/20 152 Azithromycin (Azithromycin) 250 Mg Tablet, 250 MG PO DAILY Prescribed by: MOR BENNETT on 08/17/20 1526 Cefdinir (Cefdinir) 300 Mg Capsule, 300 MG PO BID Prescribed by: MOR BENNETT on 08/17/20 1526 Prednisone (Prednisone) 20 Mg Tab, 40 MG PO DAILY Prescribed by: JOYCE VELASCO on 07/16/21 1623 Review of Systems Review of Systems Constitutional: see HPI; No chills, No fever Respiratory: cough, wheezing Cardiovascular: No chest pain, No palpitations Gastrointestinal: No nausea, No vomiting Genitourinary: no symptoms reported Musculoskeletal: No back pain, No muscle pain Psychiatric/Neurological: No Symptoms Reported Past Arqoqxr-Wwcykd-Csouat Hx Immunizations Up To Date Tetanus Booster (TDap): More than 5yrs First/Initial COVID19 Vaccinat: 2020 Second COVID19 Vaccination Arpan: 2020 Seasonal Allergies Seasonal Allergies: No Past Medical History Surgeries: Yes (HYSTERCTOMY/OVARIES INTACT; X 1) Appendectomy, Section, Hysterectomy, Tubal Ligation Respiratory: Yes Pneumonia, COPD Cardiac: No Neurological: No Reproductive Disorders: No 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 oz. 52.092060qd; 61.00 BMI Method:Stated General Appearance: WD/WN, no apparent distress HEENT: PERRL/EOMI, pharynx normal Neck: full range of motion, supple Respiratory: lungs clear, normal breath sounds Cardiovascular: regular rate, rhythm, no murmur Gastrointestinal: non tender, soft Extremities: non-tender, normal inspection Neurologic/Psychiatric: alert, oriented x 3 Skin: normal color, warm/dry Progress/Results/Core Measures Suspected Sepsis SIRS Temperature: Pulse: Respiratory Rate: Laboratory Tests 07/16/21 15:30: White Blood Count 9.1 Blood Pressure / Mean: Laboratory Tests 07/16/21 15:30: Creatinine 0.71, Platelet Count 280, Total Bilirubin 0.4 Results/Orders Lab Results Laboratory Tests Test 07/16/21 15:30 Range/Units White Blood Count 9.1 4.3-11.0 10^3/uL Red Blood Count 4.82 3.80-5.11 10^6/uL Hemoglobin 14.1 11.5-16.0 g/dL Hematocrit 43 35-52 % Mean Corpuscular Volume 89 80-99 fL Mean Corpuscular Hemoglobin 29 25-34 pg Mean Corpuscular Hemoglobin Concent 33 32-36 g/dL Red Cell Distribution Width 12.7 10.0-14.5 % Platelet Count 280 130-400 10^3/uL Mean Platelet Volume 10.7 9.0-12.2 fL Immature Granulocyte % (Auto) 0 % Neutrophils (%) (Auto) 70 42-75 % Lymphocytes (%) (Auto) 21 12-44 % Monocytes (%) (Auto) 8 0-12 % Eosinophils (%) (Auto) 1 0-10 % Basophils (%) (Auto) 0 0-10 % Neutrophils # (Auto) 6.4 1.8-7.8 X 10^3 Lymphocytes # (Auto) 1.9 1.0-4.0 X 10^3 Monocytes # (Auto) 0.7 0.0-1.0 X 10^3 Eosinophils # (Auto) 0.1 0.0-0.3 10^3/uL Basophils # (Auto) 0.0 0.0-0.1 10^3/uL Immature Granulocyte # (Auto) 0.0 0.0-0.1 10^3/uL D-Dimer 0.38 0.00-0.49 UG/ML Sodium Level 137 135-145 MMOL/L Potassium Level 4.1 3.6-5.0 MMOL/L Chloride Level 100 98-107 MMOL/L Carbon Dioxide Level 24 21-32 MMOL/L Anion Gap 13 5-14 MMOL/L Blood Urea Nitrogen 11 7-18 MG/DL Creatinine 0.71 0.60-1.30 MG/DL Estimat Glomerular Filtration Rate 109 BUN/Creatinine Ratio 15 Glucose Level 84 70-105 MG/DL Calcium Level 9.1 8.5-10.1 MG/DL Corrected Calcium 9.0 8.5-10.1 MG/DL Total Bilirubin 0.4 0.1-1.0 MG/DL Aspartate Amino Transf (AST/SGOT) 22 5-34 U/L Alanine Aminotransferase (ALT/SGPT) 15 0-55 U/L Alkaline Phosphatase 89 40-136 U/L C-Reactive Protein High Sensitivity 0.48 0.00-0.50 MG/DL Total Protein 7.6 6.4-8.2 GM/DL Albumin 4.1 3.2-4.5 GM/DL My Orders Orders - JOYCE VELASCO MD Cbc With Automated Diff (07/16/21 15:35) Comprehensive Metabolic Panel (07/16/21 15:35) Hs C Reactive Protein (07/16/21 15:35) Fibrin Degradation Products (07/16/21 15:35) Ed Iv/Invasive Line Start (07/16/21 15:35) Chest Pa/Lat (2 View) (07/16/21 15:35) Vital Signs/I&O Capillary Refill : Progress Note : Progress Note Seen and evaluated. X-ray chest ordered. Labs and IV ordered. We will rule out pulmonary embolism with D-dimer as she is low risk currently. Monitor patient. 1620: Chest x-ray shows chronic lung disease and likely sequela of Covid. No indication of infection based on labs and D-dimer is negative. I believe at this time we will go ahead and initiate apqr-bdh-hdyrsby steroids and she can continue her doxycycline with follow-up with her doctor this week. Discharged home with return precautions. Patient verbalized understanding instructions and agreement with plan. Diagnostic Imaging Diagonstic Imaging: Xray Plain Films/CT/US/NM/MRI: chest Comments [facility]. [place], [place] NAME: RANDOLPH KAUFMAN [facility] REC#: [id number] PT STATUS: REG ER : 1980 PHYSICIAN: JOYCE VELASCO MD ADMIT DATE: 07/16/21/ER Signed Date of Exam:07/16/21 CHEST PA/LAT (2 VIEW) INDICATION: Cough and shortness of breath. COMPARISON: 04/09/2021. FINDINGS: Heart size is normal. There are persistent patchy bilateral pulmonary infiltrates. There is no pleural effusion or pneumothorax. The mediastinum is unremarkable. IMPRESSION: Persistent patchy bilateral pulmonary infiltrates possibly chronic sequela of Covid. Recommend clinical correlation. Dictated by: Dictated on workstation # [id number] Dict: 07/16/21 1601 Trans: 07/16/21 1618 [id number] Interpreted by: SHANNEN GARCIA MD Electronically signed by: SHANNEN GARCIA MD 07/16/21 1618 Departure Impression Primary Impression: Exacerbation of reactive airway disease Qualified Codes: J45.41 - Moderate persistent asthma with (acute) exacerbation Disposition: HOME, SELF-CARE Condition: Stable Departure-Patient Inst. Decision time for Depature: 16:21 Referrals: [facility] (PCP/Family) Primary Care Physician Patient Instructions: Exacerbation of COPD, Viral Upper Respiratory Infection, Adult (DC) Add. Discharge Instructions: All discharge instructions reviewed with patient and/or family. Voiced understanding. Take medications as directed. Continue antibiotics as previously prescribed. Follow-up with your doctor in a few days for recheck. You may use your albuterol inhaler 2 puffs every 6 hours as needed. You might do this 3-4 times over the next 2 to 3 days to help reduce inflammation and improve breathing. Return for worse pain, fever, vomiting, weakness, breathing problems or other concerns as needed. Follow-up with your doctor in a few days for recheck. Scripts Prednisone (Prednisone) 20 Mg Tab 40 MG PO DAILY, #10 TAB 0 Refills Prov: JOYCE VELASCO MD 07/16/21 JOYCE VELASCO MD Jul 16, 2021 16:24
[2021-07-16 16:30] VITALS: BP 120/70
== END 2021-07-16 16:29 | disposition home or self-care (01) ==
LOC: EDUNIT# 14:30 → ER 14:32
DX: J45.41 Moderate persistent asthma with (acute) exacerbation (principal); J44.9 Chronic obstructive pulmonary disease, unspecified; Z86.16 Personal history of COVID-19; Z87.01 Personal history of pneumonia (recurrent); Z79.899 Other long term (current) drug therapy
CPT/HCPCS: 36415; 71046; 80053; 85025; 85379; 86141; 93005

== ENCOUNTER 2021-08-24 18:53 | Emergency (ER) | payer MEDICARE ==
--- NOTE | 2021-08-24 19:56 | ED Dyspnea ---
General Chief Complaint: Post OP Complications/Pain Stated Complaint: FLEXIBLE BRONOSCOPY, SOB Source of Information: Patient Exam Limitations: No Limitations (ERIC HAM) History of Present Illness Date Seen by Provider: August 24, 2021 Time Seen by Provider: 19:54 Initial Comments Patient is a 41-year-old female who presents ED with right-sided neck pain, shortness of breath. She states she has had shortness of breath for several months. She had a flexible bronchoscopy with biopsy today around [address] Hawk at [facility]. She states did have some ice chips before she left and was feeling better. About 2 to 3 hours ago she attempted to eat some Ramen noodle started having pain in her neck. She reports pain with swallowing. Does have some shortness of breath but this is chronic. She states pain radiates to the right side of her neck. She did have some mild coughing up with small amount of blood but that has improved. Denies fever, chest pain, abdominal pain, headache, cough, dizziness. Denies taking any medication at home. She was recommended come to ED for further evaluation. (ERIC HAM) Allergies and Home Medications Allergies Coded Allergies: morphine (Unverified Allergy, Unknown, 03/09/16) Patient Home Medication List Home Medication List Reviewed: No (HERO ERWIN DO) Amoxicillin/Potassium Clav (Augmentin 875-125 Tablet) 1 Each Tablet, 1 EACH PO BID Prescribed by: MINERVA GROVES on 04/09/21 1441 Aspirin (Aspirin EC) 81 Mg Tablet.dr, 81 MG PO DAILY Prescribed by: MOR BENNETT on 08/17/20 152 Azithromycin (Azithromycin) 250 Mg Tablet, 250 MG PO DAILY Prescribed by: OMR BENNETT on 08/17/20 152 Cefdinir (Cefdinir) 300 Mg Capsule, 300 MG PO BID Prescribed by: MOR BNENETT on 08/17/20 152 Prednisone (Prednisone) 20 Mg Tab, 40 MG PO DAILY Prescribed by: JOYCE VELASCO on 07/16/21 1623 Review of Systems Review of Systems Constitutional: No chills, No diaphoresis, No malaise, No weakness EENTM: No ear pain, No double vision, No mouth pain, No mouth swelling Respiratory: No cough; short of breath Cardiovascular: No chest pain Gastrointestinal: No abdominal pain, No diarrhea, No nausea, No vomiting Genitourinary: No discharge Musculoskeletal: No back pain, No joint pain Skin: No change in color, No change in hair/nails (ERIC HAM) All Other Systems Reviewed Negative Unless Noted: Yes (ERIC HAM) Past Psmtjys-Kigrry-Szqefz Hx Patient Social History Tobacco Use?: No Use of E-Cig and/or Vaping dev: No Substance use?: No Alcohol Use?: No Pt feels they are or have been: No (ERIC HAM) Immunizations Up To Date Tetanus Booster (TDap): More than 5yrs First/Initial COVID19 Vaccinat: YES Second COVID19 Vaccination Arpan: YES (ERIC HAM) Seasonal Allergies Seasonal Allergies: No (ERIC HAM) Past Medical History Surgery/Hospitalization HX: RECURRENT PNUMONIA Surgeries: Yes (HYSTERCTOMY/OVARIES INTACT; X 1) Appendectomy, Section, Hysterectomy, Tubal Ligation Respiratory: Yes Pneumonia, COPD Cardiac: No Neurological: No 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 oz. 52.654298je; 18.00 BMI Method:Stated General Appearance: No Apparent Distress, WD/WN HEENT: PERRL/EOMI, TMs Normal, Normal ENT Inspection, Pharynx Normal Neck: Full Range of Motion, Normal Inspection, Supple, Tender Lateral (Right lateral neck tenderness. No swelling erythema or ecchymosis) Respiratory: Chest Non Tender, Lungs Clear, Normal Breath Sounds, No Accessory Muscle Use, No Respiratory Distress Cardiovascular: Regular Rate, Rhythm, No Edema, No Gallop, No JVD, No Murmur Gastrointestinal: Normal Bowel Sounds, No Organomegaly, No Pulsatile Mass, Non Tender, Soft Extremity: Normal Capillary Refill, Normal Inspection, Normal Range of Motion, Non Tender, No Calf Tenderness Skin: Normal Color, Warm/Dry (ERIC HAM) Progress/Results/Core Measures Results/Orders Lab Results Laboratory Tests Test 08/24/21 22:05 Range/Units White Blood Count 15.5 H 4.3-11.0 10^3/uL Red Blood Count 3.98 3.80-5.11 10^6/uL Hemoglobin 11.6 11.5-16.0 g/dL Hematocrit 35 35-52 % Mean Corpuscular Volume 87 80-99 fL Mean Corpuscular Hemoglobin 29 25-34 pg Mean Corpuscular Hemoglobin Concent 33 32-36 g/dL Red Cell Distribution Width 12.7 10.0-14.5 % Platelet Count 195 130-400 10^3/uL Mean Platelet Volume 11.4 9.0-12.2 fL Immature Granulocyte % (Auto) 0 % Neutrophils (%) (Auto) 87 H 42-75 % Lymphocytes (%) (Auto) 8 L 12-44 % Monocytes (%) (Auto) 4 0-12 % Eosinophils (%) (Auto) 0 0-10 % Basophils (%) (Auto) 0 0-10 % Neutrophils # (Auto) 13.5 H 1.8-7.8 10^3/uL Lymphocytes # (Auto) 1.3 1.0-4.0 10^3/uL Monocytes # (Auto) 0.6 0.0-1.0 10^3/uL Eosinophils # (Auto) 0.0 0.0-0.3 10^3/uL Basophils # (Auto) 0.0 0.0-0.1 10^3/uL Immature Granulocyte # (Auto) 0.1 0.0-0.1 10^3/uL Neutrophils % (Manual) 89 % Lymphocytes % (Manual) 8 % Monocytes % (Manual) 3 % Blood Morphology Comment NORMAL Sodium Level 137 135-145 MMOL/L Potassium Level 3.8 3.6-5.0 MMOL/L Chloride Level 105 98-107 MMOL/L Carbon Dioxide Level 20 L 21-32 MMOL/L Anion Gap 12 5-14 MMOL/L Blood Urea Nitrogen 5 L 7-18 MG/DL Creatinine 0.64 0.60-1.30 MG/DL Estimat Glomerular Filtration Rate 113 BUN/Creatinine Ratio 8 Glucose Level 128 H 70-105 MG/DL Calcium Level 9.1 8.5-10.1 MG/DL Corrected Calcium 9.3 8.5-10.1 MG/DL Total Bilirubin 0.5 0.1-1.0 MG/DL Aspartate Amino Transf (AST/SGOT) 21 5-34 U/L Alanine Aminotransferase (ALT/SGPT) 9 0-55 U/L Alkaline Phosphatase 68 40-136 U/L Total Protein 6.8 6.4-8.2 GM/DL Albumin 3.8 3.2-4.5 GM/DL (HERO ERWIN DO) Medications Given in ED Current Medications Medications Dose Ordered Sig/Jey Route Start Time Stop Time Status Last Admin Dose Admin Ibuprofen 600 mg ONCE ONCE PO 08/24/21 20:00 08/24/21 20:01 DC 08/24/21 20:04 600 MG (HERO ERWIN DO) Vital Signs/I&O 08/24/21 08/24/21 19:42 23:04 Temp 36.4 36.4 Pulse 68 68 Resp 18 18 B/P (MAP) 111/70 (84) 111/70 (HERO ERWIN DO) Departure Communication (PCP) Patient had a flexible bronchoscopy performed by Dr. Chen reference and instruction librarian at [facility] this morning. Started having some pain with swallowing after eating Ramen noodles. Denies of feeling acutely short of breath. She states she has been short of breath for several months and currently being managed by pulmonology with biopsies performed today. She does have some subtle crepitus in the neck concerning for possible subcutaneous emphysema secondary to procedure. Chest x-ray was concerning for pneumomediastinum and subcutaneous emphysema. CT chest and neck did show large amount of subcutaneous emphysema and a small pneumomediastinum. No evidence of pneumothorax. Findings concerning for infectious versus inflammatory changes. She is currently being evaluated for this currently by pulmonology. No stridor. Does have some crepitus in around her neck. Vital signs stable. Lab work shows slightly elevated white blood count. Discussed patient with Dr. Chen at [facility] who recommended admission for observation. He felt like patient could be stayed here at our facility. Discussed patient with our general surgeon Dr. Shultz who felt like patient needed to be transferred to [facility] since this was a procedure performed by them may and needs to be managed by them. Before setting up for transfer patient refused transfer and states that she is going to leave at this time. She states her throat feels much better and will drive to [facility]. Discussed risk such as respiratory distress potential . Patient acknowledges. She states she will follow-up with [facility] and drive over there as she does not want to wait for several hours for transfer. She is currently stable. Pulmonology states that this should improve without any intervention and just needs observation at this time (ERIC HAM) Impression Primary Impression: Pneumomediastinum Additional Impression: Emphysema (subcutaneous) (surgical) resulting from a procedure Disposition: 07 AGAINST MEDICAL ADVICE Condition: Against Medical Advice Departure-Patient Inst. Decision time for Depature: 22:52 (ERIC HAM) [place]errals: [facility] [place] Primary Care Physician Patient Instructions: Shortness of Breath (Dyspnea) (DC) Add. Discharge Instructions: Recommend returning back to ED if symptoms worsen or follow-up with [facility]. ATTENDING PHYSICIAN NOTE: I WAS PHYSICALLY PRESENT ER PHYSICIAN, BUT I WAS NOT INVOLVED IN ANY DECISION MAKING OR ANY CARE OF THIS PATIENT. (HERO ERWIN DO) ERIC HAM August 24, 2021 19:56 HERO ERWIN DO August 25, 2021 04:51
[2021-08-24] MEDS ORDERED: IBUPROFEN 600 MG (MOTRIN) TAB PO ONE (20:00)
[2021-08-24] MEDS ORDERED: LACTATED RINGERS 0 ML IV ONE (20:08)
--- NOTE | 2021-08-24 20:36 | Diagnostic Imaging Report ---
EXAMINATION: Chest 1 view. HISTORY: Shortness of breath. Recent bronchoplasty. COMPARISON: 04/09/2021. 07/16/2021. FINDINGS: The lung volumes are hyperexpanded. Scattered coarse opacities are seen in the lungs, greatest in the lower lobes. No focal consolidation. No large pleural effusion or pneumothorax is seen. The heart size is normal. There is a small amount of pneumomediastinum with subcutaneous emphysema noted in the neck. No acute osseous abnormality is seen. IMPRESSION: 1. Pneumomediastinum with subcutaneous emphysema in the neck. Findings likely relate to the patient's recent bronchoplasty. No evidence of pneumothorax. Consider CT of the chest to further evaluate. 2. Hyperexpanded lungs with scattered coarse opacities suggestive of COPD. No focal consolidation or pleural effusion. Dictated by: Dictated on workstation # [id number]
--- NOTE | 2021-08-24 20:37 | Diagnostic Imaging Report ---
CLINICAL HISTORY: Neck pain. Recent bronchoplasty. COMPARISON: None. TECHNIQUE: 2 views of the soft tissues of the neck. FINDINGS: Subcutaneous emphysema is seen throughout the neck. No evidence of fracture of the cervical spine. IMPRESSION: Large amount of subcutaneous emphysema throughout the neck, likely representing recent bronchoplasty. Recommend CT of the chest to further evaluate. Dictated by: Dictated on workstation # [id number]
--- NOTE | 2021-08-24 21:36 | Diagnostic Imaging Report ---
EXAMINATION: CT neck and chest without intravenous contrast. TECHNIQUE: Multiple contiguous axial images were obtained through the neck and chest without contrast. All CT scans use one or more of the following dose optimizing techniques: automated exposure control, MA and/or KvP adjustment based on patient size and exam type or iterative reconstruction. HISTORY: Recent bronchoscopy. Choking sensation. Subcutaneous emphysema is seen on prior radiographs. COMPARISON: Radiographs performed earlier the same date. CTA chest on 08/17/2020. FINDINGS: Neck CT: Diffuse subcutaneous emphysema is seen throughout the neck. No focal soft tissue mass. No pathologically enlarged lymphadenopathy. The airway is patent. No airway compromise. No evidence of mass in the aerodigestive tract. The parotid, submandibular and thyroid glands are unremarkable. The included intracranial contents are unremarkable. The paranasal sinuses and mastoid air cells are clear. The globes and orbits are symmetric and unremarkable. The cervical spine has a normal appearance. No acute fracture or dislocation. The craniocervical junction is intact. No evidence of acute spinal canal stenosis. Chest CT: The heart size is within normal limits. No pericardial effusion is present. A small amount of pneumomediastinum is noted. There is no mediastinal, hilar or axillary lymphadenopathy. Scattered nodular opacities are seen throughout the lungs, greatest in the right midlung. These findings have slightly progressed since the prior exam from 08/17/2020. No central endobronchial obstructing lesions. No evidence of pleural effusion or pneumothorax. The osseous structures demonstrate no acute abnormalities. Limited views of the upper abdominal structures demonstrate no acute abnormalities. IMPRESSION: 1. Large amount of subcutaneous emphysema throughout the neck with additional small amount of pneumomediastinum. No evidence of pneumothorax. No obvious defect is seen within the trachea or proximal bronchi. Findings likely represent the patient's recent bronchoscopy. Recommend clinical follow-up, as indicated. 2. No evidence of airway compromise. No mass in the neck. 3. Scattered nodular opacities throughout the lungs, which appear to have progressed since the prior exam from 08/17/2020. Findings are favored to represent inflammatory or infectious process such as Mycobacterium avium complex infection. Recommend continued follow-up. Dictated by: Dictated on workstation # [id number]
[2021-08-24 22:13] LABS: BASOPHILS % (AUTO) 0 % (0-10); EOSINOPHILS % (AUTO) 0 % (0-10); HEMATOCRIT 35 % (35-52); HEMOGLOBIN 11.6 g/dL (11.5-16.0); LYMPHOCYTES # (AUTO) 1.3 10^3/uL (1.0-4.0); LYMPHOCYTES % (AUTO) 8 % (12-44); MEAN CORPUSCULAR HEMOGLOBIN 29 pg (25-34); MEAN CORPUSCULAR HGB CONC 33 g/dL (32-36); MEAN CORPUSCULAR VOLUME 87 fL (80-99); MEAN PLATELET VOLUME 11.4 fL (9.0-12.2); MONOCYTES # (AUTO) 0.6 10^3/uL (0.0-1.0); MONOCYTES % (AUTO) 4 % (0-12); NEUTROPHILS # (AUTO) 13.5 10^3/uL (1.8-7.8); NEUTROPHILS % (AUTO) 87 % (42-75); PLATELET COUNT 195 10^3/uL (130-400); WHITE BLOOD COUNT 15.5 10^3/uL (4.3-11.0)
[2021-08-24 22:23] LABS: ALBUMIN 3.8 GM/DL (3.2-4.5); POTASSIUM 3.8 MMOL/L (3.6-5.0)
[2021-08-24 22:25] LABS: CALCIUM 9.1 MG/DL (8.5-10.1)
[2021-08-24 22:26] LABS: TOTAL PROTEIN 6.8 GM/DL (6.4-8.2)
[2021-08-24 22:28] LABS: BILIRUBIN,TOTAL 0.5 MG/DL (0.1-1.0)
[2021-08-24 22:29] LABS: CREATININE SERUM 0.64 MG/DL (0.60-1.30); LYMPHOCYTES % (MANUAL) 8 %; MONOCYTES % (MANUAL) 3 %; NEUTROPHILS % (MANUAL) 89 %; RBC MORPH NORMAL
[2021-08-24 23:04] VITALS: BP 111/70
== END 2021-08-24 23:05 | disposition left against medical advice (07) ==
LOC: EDUNIT# 18:53 → ER 18:56
DX: T81.82XA Emphysema (subcutaneous) resulting from a procedure, initial encounter (principal)
CPT/HCPCS: 36415; 70360; 70490; 71045; 71250; 80053; 85007; 85027; 99283

== ENCOUNTER → 2021-09-05 | Outpatient (CLI) | payer MEDICARE ==
[2021-09-05 13:42] LABS: BASOPHILS % (AUTO) 0 % (0-10); EOSINOPHILS % (AUTO) 0 % (0-10); HEMATOCRIT 40 % (35-52); HEMOGLOBIN 13.2 g/dL (11.5-16.0); LYMPHOCYTES # (AUTO) 1.6 10^3/uL (1.0-4.0); LYMPHOCYTES % (AUTO) 17 % (12-44); MEAN CORPUSCULAR HEMOGLOBIN 29 pg (25-34); MEAN CORPUSCULAR HGB CONC 33 g/dL (32-36); MEAN CORPUSCULAR VOLUME 88 fL (80-99); MEAN PLATELET VOLUME 10.8 fL (9.0-12.2); MONOCYTES # (AUTO) 0.5 10^3/uL (0.0-1.0); MONOCYTES % (AUTO) 5 % (0-12); NEUTROPHILS # (AUTO) 7.6 10^3/uL (1.8-7.8); NEUTROPHILS % (AUTO) 77 % (42-75); PLATELET COUNT 276 10^3/uL (130-400); WHITE BLOOD COUNT 9.8 10^3/uL (4.3-11.0)
[2021-09-05 13:57] LABS: ALBUMIN 4.2 GM/DL (3.2-4.5)
[2021-09-05 13:58] LABS: CALCIUM 9.1 MG/DL (8.5-10.1)
[2021-09-05 14:00] LABS: TOTAL PROTEIN 7.5 GM/DL (6.4-8.2)
[2021-09-05 14:01] LABS: BILIRUBIN,TOTAL 0.4 MG/DL (0.1-1.0); ERYTHROCYTE SEDIMENTATION RATE 11 MM/HR (0-20)
[2021-09-05 14:03] LABS: CREATININE SERUM 0.7 MG/DL (0.60-1.30)
== END ==
LOC: LAB 12:32
PROVIDERS: ATTEND Internal Medicine Critical Care Medicine
DX: D86.9 Sarcoidosis, unspecified (principal)
CPT/HCPCS: 36415; 80053; 82085; 82550; 83516; 85025; 85652; 86021; 86038; 86039; 86141; 86160; 86200; 86225; 86235; 86431

== ENCOUNTER 2021-11-25 07:16 | Emergency (ER) | payer MEDICARE, MEDICAID ==
[~2021-11-25] VITALS: Ht 167 cm; Wt 52.0 kg
--- NOTE | 2021-11-25 07:32 | ED Lower Extremity ---
General Chief Complaint: Lower Extremity Stated Complaint: FALL - L FOOT PAIN Source: patient Exam Limitations: no limitations History of Present Illness Date Seen by Provider: Nov 25, 2021 Time Seen by Provider: 07:22 Initial Comments Patient is a 41-year-old female who presents to the emergency department with a chief complaint of left foot pain. She was looking at her house last night and stepped off a curb twisting her left ankle. She did not fall. She states she was able to bear weight on it last evening but woke up this morning to go to the bathroom and was unable to put any pressure on the plantar surface of her foot. She denies knee or hip pain. No other complaints of injury. She did put some muscle rub on it last night. No medications for pain this morning. She has not eaten. All other review of systems reviewed and negative except as stated Onset: yesterday Severity: moderate Pain/Injury Location: left foot Method of Injury: fell, twisted Modifying Factors: Worse With Jarring, Worse With Movement Allergies and Home Medications Allergies Coded Allergies: morphine (Unverified Allergy, Unknown, 03/09/16) Patient Home Medication List Home Medication List Reviewed: Yes Amoxicillin/Potassium Clav (Augmentin 875-125 Tablet) 1 Each Tablet, 1 EACH PO BID Prescribed by: MINERVA GROVES on 04/09/21 1441 Aspirin (Aspirin EC) 81 Mg Tablet.dr, 81 MG PO DAILY Prescribed by: MOR BENNETT on 08/17/20 1526 Azithromycin (Azithromycin) 250 Mg Tablet, 250 MG PO DAILY Prescribed by: MOR BENNETT on 08/17/20 152 Cefdinir (Cefdinir) 300 Mg Capsule, 300 MG PO BID Prescribed by: MOR BENNETT on 08/17/20 1526 Prednisone (Prednisone) 20 Mg Tab, 40 MG PO DAILY Prescribed by: JOYCE VELASCO on 07/16/21 1623 Review of Systems Constitutional: see HPI Respiratory: no symptoms reported Cardiovascular: no symptoms reported Gastrointestinal: no symptoms reported Musculoskeletal: joint pain (left foot) Skin: change in color (bruising) All Other Systems Reviewed Negative Unless Noted: Yes Past Hjegwfe-Eijekj-Yzwhfg Hx Immunizations Up To Date Tetanus Booster (TDap): More than 5yrs First/Initial COVID19 Vaccinat: YES Second COVID19 Vaccination Arpan: YES Seasonal Allergies Seasonal Allergies: No Past Medical History Surgery/Hospitalization HX: RECURRENT PNUMONIA Surgeries: Yes (HYSTERCTOMY/OVARIES INTACT; X 1) Appendectomy, Section, Hysterectomy, Tubal Ligation Respiratory: Yes Pneumonia, COPD Cardiac: No Neurological: No Reproductive Disorders: No 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 oz. 52.567108he; 18.00 BMI Method:Stated General Appearance: no apparent distress, thin HEENT: PERRL/EOMI Cardiovascular: regular rate, rhythm Respiratory: no respiratory distress, no accessory muscle use Hips: bilateral hip non-tender, bilateral hip normal inspection, bilateral hip normal range of motion, bilateral hip no evidence of injury Legs: bilateral leg non-tender, bilateral leg normal inspection, bilateral leg normal range of motion, bilateral leg no evidence of injury Knees: bilateral knee non-tender, bilateral knee normal inspection, bilateral knee normal range of motion, bilateral knee no evidence of injury Ankles: bilateral ankle non-tender, bilateral ankle normal inspection; right ankle normal range of motion; bilateral ankle no evidence of injury; left ankle limited range of motion Feet: right foot non-tender, right foot normal inspection, right foot normal range of motion, right foot no evidence of injury; left foot bone tenderness, left foot ecchymosis, left foot limited range of motion, left foot pain, left foot soft tissue tenderness, left foot swelling, left foot other (swelling over the lateral dorsal foot with tenderness to palpation; pain at the base of the 5th metatarsal) Neurologic/Tendon: normal sensation, normal motor functions, normal tendon functions Neurologic/Psychiatric: alert, normal mood/affect Skin: warm/dry Progress/Results/Core Measures Results/Orders My Orders Orders - MITZI VANEGAS MD Foot, Left, 3 Views (11/25/21 07:32) Vital Signs/I&O 11/25/21 07:27 Temp 35.6 Pulse 71 Resp 18 B/P (MAP) 120/81 (94) Pulse Ox 98 O2 Delivery Room Air Progress Progress Note : Time: 08:39 Progress Note xrays negative; patient declined crutches or an ice wrap. Supportive care discussed, ice, elevation, etc. Diagnostic Imaging Diagonstic Imaging: Xray Comments [facility], [place] NAME: RANDOLPH KAUFMAN [facility] REC#: [id number] PT STATUS: REG ER : 1980 PHYSICIAN: MITZI VANEGAS MD ADMIT DATE: 11/25/21/ER Draft Date of Exam:11/25/21 FOOT, LEFT, 3 VIEWS Indication: Fall with left foot pain. Time of Exam: 8:00 a.m. 3 views of the left foot were obtained. Metatarsals are intact. Phalanges are intact. Midfoot and hindfoot are unremarkable. No fractures are seen. Impression: No acute bony abnormality is detected. Dictated on workstation # [id number] Dict: 11/25/21812 Trans: 11/25/21 08 [facility] [id number] Interpreted by: AMY JEFFRIES MD Electronically signed by: Departure Impression Primary Impression: Sprain of left foot Qualified Codes: S93.602A - Unspecified sprain of left foot, initial encounter Disposition: 01 HOME, SELF-CARE Condition: Stable Departure-Patient Inst. Decision time for Depature: 08:39 Referrals: [facility] [place] (PCP/Family) Primary Care Physician Patient Instructions: Foot Sprain ED Add. Discharge Instructions: Elevate the left foot to help decrease swelling. Over the counter ibuprofen 3 tablets (600mg) every 6-8 hours as needed for pain - always take Ibuprofen with food. You can also take tylenol as needed every 6 hours. Return to the Emergency Department for any new, concerning or emergent complaints. Copy Copies To 1: RAMON GALDAMEZ KATHRYN M MD Nov 25, 2021 07:32
--- NOTE | 2021-11-25 08:21 | Diagnostic Imaging Report ---
Indication: Fall with left foot pain. Time of Exam: 8:00 a.m. 3 views of the left foot were obtained. Metatarsals are intact. Phalanges are intact. Midfoot and hindfoot are unremarkable. No fractures are seen. Impression: No acute bony abnormality is detected. Dictated by: Dictated on workstation # [id number]
[2021-11-25 08:45] VITALS: BP 120/81
== END 2021-11-25 08:45 | disposition home or self-care (01) ==
LOC: EDUNIT# 07:16 → ER 07:17
DX: S93.602A Unspecified sprain of left foot, initial encounter (principal); X50.1XXA Overexertion from prolonged static or awkward postures, initial encounter
CPT/HCPCS: 73630

== ENCOUNTER 2022-04-02 15:43 | Emergency (ER) | payer MEDICARE, MEDICAID ==
[~2022-04-02] VITALS: Ht 167 cm; Wt 50.0 kg
[~2022-04-02 15:43] MED LIST changes: +ALBU8.5H6 IH; -RT-ALBUINH IH
--- NOTE | 2022-04-02 16:14 | ED Chest Pain ---
General Chief Complaint: Chest Wall Stated Complaint: PAIN WHILE BREATHING,COUGH Nursing Triage Note: PT STATES CHRONIC LUNG ISSUES THAT SHE TAKES ABX REGULARLY, COUGHING MORE LATELY, DENIES FEVER, RIBS HURT ON DEEP BREATHS Source: patient Exam Limitations: no limitations History of Present Illness Date Seen by Provider: Apr 02, 2022 Time Seen by Provider: 15:54 Initial Comments 41-year-old female presents with bilateral rib pain that is worse with coughing and deep breathing. Patient reports a history of lung fibrosis with frequent pneumonia. Patient denies fevers/chills, denies nausea. Patient currently takes azithromycin, rifampin, and ethambutol. Timing/Duration: 1-2 days Location: other (jeremie lower ribs) Activities at Onset: other (cough and deep breathing) Modifying Factors: worse with coughing Associated Symptoms: denies symptoms Allergies and Home Medications Allergies Coded Allergies: morphine (Unverified Allergy, Unknown, 03/09/16) Patient Home Medication List Home Medication List Reviewed: Yes Amoxicillin/Potassium Clav (Augmentin 875-125 Tablet) 1 Each Tablet, 1 EACH PO BID Prescribed by: MINERVA GROVES on 04/09/21 1441 Aspirin (Aspirin EC) 81 Mg Tablet.dr, 81 MG PO DAILY Prescribed by: MOR BENNETT on 08/17/20 1526 Azithromycin (Azithromycin) 250 Mg Tablet, 250 MG PO DAILY Prescribed by: MOR BENNETT on 08/17/20 1526 Benzonatate (Tessalon Perles) 100 Mg Capsule, 200 MG PO TID PRN for COUGH Prescribed by: Kathy Calderon on 04/02/22 1740 Cefdinir (Cefdinir) 300 Mg Capsule, 300 MG PO BID Prescribed by: MOR BENNETT on 08/17/20 152 Prednisone (Prednisone) 20 Mg Tab, 40 MG PO DAILY Prescribed by: JOYCE VELASCO on 07/16/21 1623 Review of Systems Review of Systems Constitutional: no symptoms reported; No chills, No fever Respiratory: Cough, Other (jeremie rib pain) Cardiovascular: No Symptoms Reported Gastrointestinal: No Symptoms Reported Past Kuwcxcc-Jzaelr-Zzlpzi Hx Patient Social History Tobacco Use?: No Substance use?: No Alcohol Use?: No Immunizations Up To Date Tetanus Booster (TDap): More than 5yrs First/Initial COVID19 Vaccinat: YES Second COVID19 Vaccination Arpan: YES Third COVID19 Vaccination Date: YES Seasonal Allergies Seasonal Allergies: No Past Medical History Surgery/Hospitalization HX: RECURRENT PNEUMONIA, APPENDECTOMY, C SECTION, TUBAL AND PARTIAL HYST Surgeries: Yes (HYSTERCTOMY/OVARIES INTACT; X 1) Appendectomy, Section, Hysterectomy, Tubal Ligation Respiratory: Yes Pneumonia, COPD Cardiac: No Neurological: No 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 oz. 52.197302ia; 17.00 BMI Method:Stated General Appearance: No Apparent Distress, WD/WN Neck: Normal Inspection, Supple Respiratory: Lungs Clear, Normal Breath Sounds, No Accessory Muscle Use, No Respiratory Distress Cardiovascular: Regular Rate, Rhythm, No Edema, No Gallop, No JVD, No Murmur Neurologic/Psychiatric: Alert, Oriented x3, Normal Mood/Affect Skin: Normal Color, Warm/Dry Progress/Results/Core Measures Results/Orders Lab Results Laboratory Tests Test 04/02/22 16:00 Range/Units Influenza Type A (RT-PCR) Not Detected Not Detecte Influenza Type B (RT-PCR) Not Detected Not Detecte SARS-CoV-2 RNA (RT-PCR) Not Detected Not Detecte My Orders Orders - KATHY CALDERON APRN Chest Pa/Lat (2 View) (04/02/22 15:53) Covid 19 Inhouse Test (04/02/22 16:00) Influenza A And B By Pcr (04/02/22 16:00) Benzonatate Capsule (Tessalon Perles) (04/02/22 17:45) Vital Signs/I&O 04/02/22 04/02/22 15:50 16:03 Temp 36.7 Pulse 76 Resp 20 B/P (MAP) 124/83 (97) Pulse Ox 100 O2 Delivery Room Air Room Air Blood Pressure Mean: 97 Progress Progress Note #1: Time: 16:00 Progress Note Patient seen and evaluated. Patient concerned for pneumonia. Flu/COVID swabs ordered. Chest x-ray ordered. Progress Note #2: Time: 17:35 Progress Note Discussed results with patient. No concern for pneumonia at this time. Patient requesting something for cough for home. One time dose of Tessalon Perles ordered for here and prescription sent to pharmacy. Patient instructed to follow-up primary care provider. Patient instructed to return for any new or concerning symptoms. Diagnostic Imaging Diagonstic Imaging: Xray Plain Films/CT/US/NM/MRI: chest Comments Date of Exam:04/02/22 CHEST PA/LAT (2 VIEW) EXAMINATION: Chest, two views. HISTORY: Cough COMPARISON: 07/16/2021. FINDINGS: Heart size and pulmonary vasculature are normal. Stable opacity within the right upper lung compared to 07/16/2021. Additional mild opacities within the lungs do not appear significantly changed from prior exam on 07/16/2021. These may correspond to reticulonodular opacities seen on prior CT. No new consolidation, pleural effusion, or pneumothorax. The osseous structures are intact. IMPRESSION: 1. Patchy opacities within the lungs, not significantly changed from prior exams, likely related to atypical infection or scarring. Dictated on workstation # [id number] Dict: 04/02/22 1720 Trans: 04/02/22 1725 [id number] Interpreted by: CHARLES LEIVA DO Electronically signed by: Departure Impression Primary Impression: Cough Qualified Codes: R05.9 - Cough, unspecified Disposition: 01 HOME, SELF-CARE Condition: Stable Departure-Patient Inst. Decision time for Depature: 17:37 Referrals: MICHAEL HUDSON DO (PCP/Family) Primary Care Physician Patient Instructions: Cough in Adults Add. Discharge Instructions: You are negative for COVID and flu today. Your chest x-ray does not show any concern for pneumonia. Take Tessalon Perles up to 3 times a day as needed for cough. Follow-up with primary care provider. All discharge instructions reviewed with patient and/or family. Voiced understanding. Scripts Benzonatate (TESSALON PERLES) 100 Mg Capsule 200 MG PO TID PRN for COUGH for 14 Days, #42 CAP 0 Refills Prov: KATHY CALDERON APRN 04/02/22 KATHY CALDERON APRN Apr 02, 2022 16:14
--- NOTE | 2022-04-02 17:25 | Diagnostic Imaging Report ---
EXAMINATION: Chest, two views. HISTORY: Cough COMPARISON: 07/16/2021. FINDINGS: Heart size and pulmonary vasculature are normal. Stable opacity within the right upper lung compared to 07/16/2021. Additional mild opacities within the lungs do not appear significantly changed from prior exam on 07/16/2021. These may correspond to reticulonodular opacities seen on prior CT. No new consolidation, pleural effusion, or pneumothorax. The osseous structures are intact. IMPRESSION: 1. Patchy opacities within the lungs, not significantly changed from prior exams, likely related to atypical infection or scarring. Dictated by: Dictated on workstation # [id number]
[2022-04-02] MEDS ORDERED: BENZ100C18 PO (17:40)
[2022-04-02] MEDS ORDERED: BENZONATATE 100 MG (TESSALON) CAPSULE PO ONE (17:45)
[2022-04-02 17:51] VITALS: BP 101/69
== END 2022-04-02 17:51 | disposition home or self-care (01) ==
LOC: EDUNIT# 15:43 → ER 15:45
DX: R05.9 Cough, unspecified (principal); Z20.822 Contact with and (suspected) exposure to COVID-19
CPT/HCPCS: 71046; 87636

== ENCOUNTER → 2022-04-20 | Outpatient (REF) | payer MEDICAID, MEDICARE ==
--- NOTE | 2022-04-20 16:44 | Diagnostic Imaging Report ---
PROCEDURE: MRI right joint upper extremity without contrast. TECHNIQUE: Multiplanar, multisequence non contrast-enhanced MRI of the right upper extremity was accomplished. INDICATION: Pain times one week. Injury. EXAMINATION: Right shoulder MRI from 04/20/2022. FINDINGS: The subscapularis tendon is intact. Long head of biceps tendon intact and lies in the bicipital groove. The supraspinatus and infraspinatus tendons intact. Muscle volume is preserved. Visualized axilla unremarkable. Biceps tendon anchor appears unremarkable with the labrum grossly intact on this noncontrast examination. Muscle volume is preserved. Visualized axilla appears unremarkable. IMPRESSION: 1. Rotator cuff intact 2. Biceps tendon and labrum grossly intact. No acute abnormality within the shoulder. Dictated by: Dictated on workstation # [id number]
--- NOTE | 2022-04-20 16:45 | Diagnostic Imaging Report ---
EXAMINATION: Left shoulder MRI without contrast, 04/20/2022. TECHNIQUE: Multiplanar, multisequence non contrast-enhanced MRI of the left upper extremity was accomplished. INDICATION: Shoulder pain. FINDINGS: The subscapularis tendon is intact. Long head of the biceps tendon is intact and lies within the bicipital groove. The supraspinatus and infraspinatus tendons appear intact. Biceps tendon anchor is unremarkable. The labrum is unremarkable on this noncontrast examination. Muscle volume is preserved. Visualized axilla is unremarkable. There is no acute osseous abnormality. There is minimal fluid in the subdeltoid-subacromial bursa suggesting bursitis. IMPRESSION: 1. Findings of bursitis along the subdeltoid-subacromial bursa. 2. Rotator cuff intact. 3. Labrum grossly intact with the visualized biceps tendon unremarkable. Dictated by: Dictated on workstation # [id number]
== END | disposition home or self-care (01) ==
LOC: OCC 13:43
PROVIDERS: ATTEND Nurse Practitioner Family
DX: Z01.818 Encounter for other preprocedural examination (principal)
CPT/HCPCS: 73221

== ENCOUNTER 2022-05-08 19:18 | Emergency (ER) | payer MEDICARE, MEDICAID ==
[~2022-05-08] VITALS: Ht 167.7 cm; Wt 51.7 kg
--- NOTE | 2022-05-08 19:35 | ED Chest Pain ---
General Chief Complaint: Chest Pain Stated Complaint: CHEST PAIN Nursing Triage Note: PT AMB TO ED BY POV WITH C/O CP. REPORTS SHE HAD CP UNDER L BREAST BEGINNING YESTERDAY, WENT AWAY, AND CAME BACK WHILE SHE WAS SITTING WATCHING TV AROUND 1100 TODAY. PT ALSO C/ L ARM TINGLING AND DIZZINESS. Source: patient Exam Limitations: no limitations History of Present Illness Date Seen by Provider: May 08, 2022 Time Seen by Provider: 19:24 Allergies and Home Medications Allergies Coded Allergies: morphine (Unverified Allergy, Unknown, 03/09/16) Patient Home Medication List Home Medication List Reviewed: Yes Amoxicillin/Potassium Clav (Augmentin 875-125 Tablet) 1 Each Tablet, 1 EACH PO BID Prescribed by: MINERVA GROVES on 04/09/21 1441 Aspirin (Aspirin EC) 81 Mg Tablet.dr, 81 MG PO DAILY Prescribed by: MOR BENNETT on 08/17/20 1526 Azithromycin (Azithromycin) 250 Mg Tablet, 250 MG PO DAILY Prescribed by: MOR BENNETT on 08/17/20 1526 Benzonatate (Tessalon Perles) 100 Mg Capsule, 200 MG PO TID PRN for COUGH Prescribed by: Kathy Swanson on 04/02/22 1740 Cefdinir (Cefdinir) 300 Mg Capsule, 300 MG PO BID Prescribed by: MOR BENNETT on 08/17/20 1526 Prednisone (Prednisone) 20 Mg Tab, 40 MG PO DAILY Prescribed by: JOYCE VELASCO on 07/16/21 1623 Past Zrnguyh-Dmmftk-Owzhdg Hx Patient Social History Tobacco Use?: No Use of E-Cig and/or Vaping dev: No Substance use?: No Alcohol Use?: No Pt feels they are or have been: No Immunizations Up To Date Tetanus Booster (TDap): More than 5yrs Influenza Vaccine Up-to-Date: Yes; Up-to-Date First/Initial COVID19 Vaccinat: YES Second COVID19 Vaccination Arpan: YES Third COVID19 Vaccination Date: YES Seasonal Allergies Seasonal Allergies: No Past Medical History Surgery/Hospitalization HX: RECURRENT PNEUMONIA, APPENDECTOMY, C SECTION, TUBAL AND PARTIAL HYST Surgeries: Yes (HYSTERCTOMY/OVARIES INTACT; X 1) Appendectomy, Section, Hysterectomy, Tubal Ligation Respiratory: Yes Pneumonia, COPD Cardiac: No Neurological: No 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 oz. 52.691435nt; 18.00 BMI Method:Stated Progress/Results/Core Measures Results/Orders My Orders Orders - PRATIBHA MICHAUD MD Ekg Tracing (05/08/22 19:24) Monitor-Rhythm Ecg Trace Only (05/08/22 19:24) Chest Pa/Lat (2 View) (05/08/22 19:33) Vital Signs/I&O 05/08/22 05/08/22 05/08/22 19:23 19:49 21:29 Temp 36.3 Pulse 73 67 71 77 77 Resp 12 12 B/P (MAP) 137/80 (99) 108/61 (77) 98/69 121/67 (85) 106/71 (83) Pulse Ox 100 99 O2 Delivery Room Air Room Air Blood Pressure Mean: 99 Initial ECG Impression Date: May 08, 2022 Initial ECG Impression Time: 19:26 Initial ECG Rate: 68 Initial ECG Rhythm: Normal Sinus Initial ECG Intervals: Normal Initial ECG Impression: Normal Comment Probable sinus rhythm with no ST elevation or depression. No abnormal intervals or axis deviation. Although there is artifact on the EKG, the awake overnight monitor confirms sinus rhythm. Departure Impression Primary Impression: Chest wall pain Disposition: 01 HOME, SELF-CARE Condition: Stable Departure-Patient Inst. Decision time for Depature: 21:21 Referrals: MICHAEL HUDSON DO (PCP/Family) Primary Care Physician Patient Instructions: Chest Pain That Is Not Caused by the Heart (DC) Add. Discharge Instructions: You may take anti-inflammatory medications such as naproxen or ibuprofen for your chest wall pain. You may use naproxen 500 mg twice daily or ibuprofen up to 600 mg every 6 hours. Add Tylenol (acetaminophen) up to 650 mg every 6 hours as needed for additional pain relief. If your pain is not alleviated by early next week, please contact your doctor. If symptoms worsen, return to the ER or contact your doctor. All discharge instructions reviewed with patient and/or family. Voiced understanding. PRATIBHA MICHAUD MD May 08, 2022 19:35
[2022-05-08 19:49] VITALS: BP_SYST 106; BP_SYST 108; BP_SYST 121; BP_DIAS 61; BP_DIAS 67; BP_DIAS 71
--- NOTE | 2022-05-08 19:58 | Diagnostic Imaging Report ---
INDICATION: Chest wall pain. COMPARISON is made with prior exam of 04/02/2022 FINDINGS: The heart size is normal. There are unchanged patchy focal pulmonary parenchymal opacities in the upper lobes bilaterally. There is no pleural effusion or pneumothorax. The mediastinum is unremarkable. IMPRESSION: Unchanged patchy focal pulmonary parenchymal opacities in the upper lobes bilaterally, right greater than left. Dictated by: Dictated on workstation # [id number]
[2022-05-08 21:29] VITALS: BP 98/69
== END 2022-05-08 21:29 | disposition home or self-care (01) ==
LOC: EDUNIT# 19:18 → ER 19:19
DX: R07.89 Other chest pain (principal)
CPT/HCPCS: 71046; 93005; 93041

== ENCOUNTER 2022-07-24 12:35 | Emergency (ER) | payer MEDICARE, MEDICAID ==
[~2022-07-24] VITALS: Ht 168 cm; Wt 49.0 kg
[2022-07-24] MEDS ORDERED: FAMOTIDINE 20 MG (PEPCID) TABLET PO STA (12:46)
[2022-07-24] MEDS ORDERED: NS IV 1000 ML 1,000 ML IV STA (12:46)
--- NOTE | 2022-07-24 12:51 | ED Cough/URI ---
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 Her cough and mild headache started on Saturday, she [facility]. COVID and strep test were negative then. She did not feel well again yesterday, and could not go to work, so went back to the [facility]. Her flu test was negative at that time and she was prescribed Zofran given the vomiting that started yesterday. Continues to have vomiting and fever today she states. She has been off prednisone for quite some time now, and does not take any other medications that lower her immune system currently. Otherwise denying any chest pain, shortness of breath, abdominal pain, new or worsening diarrhea, weakness, numbness, rash, severe headache, neck stiffness, vision changes, or any other concerns. Allergies and Home Medications Allergies Coded Allergies: morphine (Unverified Allergy, Unknown, 03/09/16) Patient Home Medication List Home Medication List Reviewed: Yes Amoxicillin/Potassium Clav (Augmentin 875-125 Tablet) 1 Each Tablet, 1 EACH PO BID Prescribed by: MINERVA GROVES on 04/09/21 1441 Aspirin (Aspirin EC) 81 Mg Tablet.dr, 81 MG PO DAILY Prescribed by: MOR BENNETT on 08/17/20 1526 Azithromycin (Azithromycin) 250 Mg Tablet, 250 MG PO DAILY Prescribed by: MOR BENNETT on 08/17/20 152 Benzonatate (Tessalon Perles) 100 Mg Capsule, 200 MG PO TID PRN for COUGH Prescribed by: Kathy Swanson on 04/02/22 174 Cefdinir (Cefdinir) 300 Mg Capsule, 300 MG PO BID Prescribed by: MOR BENNETT on 08/17/20 1526 Prednisone (Prednisone) 20 Mg Tab, 40 MG PO DAILY Prescribed by: JOYCE VELASCO on 07/16/21 1623 Promethazine HCl (Promethazine Tablet) 25 Mg Tablet, 25 MG PO Q8H PRN for NAUSEA/VOMITING Prescribed by: ERIC BENITES on 07/24/22 1341 Review of Systems Review of Systems Constitutional: fever EENTM: nose congestion Respiratory: cough; No short of breath Cardiovascular: No chest pain Gastrointestinal: No abdominal pain; nausea, vomiting Genitourinary: no symptoms reported Musculoskeletal: no symptoms reported Skin: no symptoms reported Psychiatric/Neurological: No Symptoms Reported Hematologic/Lymphatic: No Symptoms Reported Past Bdiigqi-Itheaq-Pednxz Hx Patient Social History Substance use?: No Immunizations Up To Date Tetanus Booster (TDap): More than 5yrs First/Initial COVID19 Vaccinat: YES Second COVID19 Vaccination Arpan: YES Third COVID19 Vaccination Date: YES Seasonal Allergies Seasonal Allergies: No Past Medical History Surgery/Hospitalization HX: RECURRENT PNEUMONIA, APPENDECTOMY, C SECTION, TUBAL AND PARTIAL HYST Surgeries: Yes (HYSTERCTOMY/OVARIES INTACT; X 1) Appendectomy, Section, Hysterectomy, Tubal Ligation Respiratory: Yes Pneumonia, COPD Cardiac: No Neurological: No 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 oz. 52.148249kz; 17.00 BMI Method:Stated General Appearance: no apparent distress, thin Eyes: Bilateral Eye Normal Inspection HEENT: PERRL/EOMI, normal ENT inspection, TMs normal, pharynx normal Neck: non-tender, full range of motion, supple, normal inspection Respiratory: chest non-tender, lungs clear, normal breath sounds, no respiratory distress, no accessory muscle use Cardiovascular: regular rate, rhythm, no edema, no murmur Gastrointestinal: normal bowel sounds, non tender, soft; No distended, No guarding, No rebound Extremities: normal range of motion, non-tender, normal inspection, no pedal edema, no calf tenderness, normal capillary refill Neurologic/Psychiatric: no motor/sensory deficits, alert, normal mood/affect Skin: normal color, warm/dry Progress/Results/Core Measures Suspected Sepsis SIRS Temperature: Pulse: 93 Respiratory Rate: 20 Laboratory Tests 07/24/22 12:50: White Blood Count 12.6H Blood Pressure 121 /80 Mean: 94 Laboratory Tests 07/24/22 12:50: Creatinine 0.65, Platelet Count 227, Total Bilirubin 2.1H Results/Orders Lab Results Laboratory Tests Test 07/24/22 12:50 Range/Units White Blood Count 12.6 H 4.3-11.0 10^3/uL Red Blood Count 4.29 3.80-5.11 10^6/uL Hemoglobin 12.7 11.5-16.0 g/dL Hematocrit 37 35-52 % Mean Corpuscular Volume 87 80-99 fL Mean Corpuscular Hemoglobin 30 25-34 pg Mean Corpuscular Hemoglobin Concent 34 32-36 g/dL Red Cell Distribution Width 12.4 10.0-14.5 % Platelet Count 227 130-400 10^3/uL Mean Platelet Volume 11.4 9.0-12.2 fL Immature Granulocyte % (Auto) 0 % Neutrophils (%) (Auto) 84 H 42-75 % Lymphocytes (%) (Auto) 8 L 12-44 % Monocytes (%) (Auto) 7 0-12 % Eosinophils (%) (Auto) 0 0-10 % Basophils (%) (Auto) 0 0-10 % Neutrophils # (Auto) 10.6 H 1.8-7.8 10^3/uL Lymphocytes # (Auto) 1.1 1.0-4.0 10^3/uL Monocytes # (Auto) 0.9 0.0-1.0 10^3/uL Eosinophils # (Auto) 0.0 0.0-0.3 10^3/uL Basophils # (Auto) 0.0 0.0-0.1 10^3/uL Immature Granulocyte # (Auto) 0.0 0.0-0.1 10^3/uL Sodium Level 139 135-145 MMOL/L Potassium Level 3.5 L 3.6-5.0 MMOL/L Chloride Level 103 98-107 MMOL/L Carbon Dioxide Level 21 21-32 MMOL/L Anion Gap 15 H 5-14 MMOL/L Blood Urea Nitrogen 8 7-18 MG/DL Creatinine 0.65 0.60-1.30 MG/DL Estimat Glomerular Filtration Rate 112 BUN/Creatinine Ratio 12 Glucose Level 89 70-105 MG/DL Calcium Level 8.9 8.5-10.1 MG/DL Corrected Calcium 8.9 8.5-10.1 MG/DL Magnesium Level 2.1 1.6-2.4 MG/DL Total Bilirubin 2.1 H 0.1-1.0 MG/DL Aspartate Amino Transf (AST/SGOT) 42 H 5-34 U/L Alanine Aminotransferase (ALT/SGPT) 30 0-55 U/L Alkaline Phosphatase 97 40-136 U/L C-Reactive Protein High Sensitivity 6.06 H 0.00-0.50 MG/DL Total Protein 7.7 6.4-8.2 GM/DL Albumin 4.0 3.2-4.5 GM/DL Lipase 16 8-78 U/L My Orders Orders - ERIC BENITES MD Cbc With Automated Diff (07/24/22 12:46) Comprehensive Metabolic Panel (07/24/22 12:46) Hs C Reactive Protein (07/24/22 12:46) Lipase (07/24/22 12:46) Magnesium (07/24/22 12:46) Ondansetron Injection (Zofran Injectio (07/24/22 13:00) Famotidine Tablet (Pepcid Tablet) (07/24/22 12:46) Ns Iv 1000 Ml (Sodium Chloride 0.9%) (07/24/22 12:46) Ed Iv/Invasive Line Start (07/24/22 12:46) Chest 1 View, Ap/Pa Only (07/24/22 12:46) Acetaminophen Tablet (Tylenol Tablet) (07/24/22 13:00) Medications Given in ED Current Medications Medications Dose Ordered Sig/Jey Route Start Time Stop Time Status Last Admin Dose Admin Acetaminophen 1,000 mg ONCE ONCE PO 07/24/22 13:00 07/24/22 13:01 DC 07/24/22 13:01 1,000 MG Ondansetron HCl 4 mg ONCE ONCE IVP 07/24/22 13:00 07/24/22 13:01 DC 07/24/22 13:01 4 MG Vital Signs/I&O 07/24/22 07/24/22 12:40 13:01 Temp 37.6 37.6 Pulse 93 Resp 20 B/P (MAP) 121/80 (94) Pulse Ox 96 O2 Delivery Room Air Capillary Refill : Less Than 3 Seconds Blood Pressure Mean: 94 Progress Note : Progress Note 42-year-old female with above history coming in due to cough and nonbloody nonbilious vomiting. ABCs were intact and vitals were stable on presentation. Physical exam with a soft and nontender abdomen. An IV was placed and basic labs were obtained and were significant for a mildly elevated white blood cell count, hyperbilirubinemia with a total bilirubin of 2.1 which is higher than her previous, normal creatinine. Chest x-ray ordered and interpreted by me showing no lobar pneumonia, no pneumothorax. She was given a bolus of IV fluids as well as nausea medications. Repeat abdominal exam once again reassuring. No indications for CT scan at this time, unlikely to be appendicitis versus cholecystitis versus obstruction. She is tolerating p.o. here in the ER. Symptoms are consistent with a viral illness, however I do want her to follow-up as an outpatient regarding her bilirubin elevation. She was then discharged home in stable condition with strict return precautions Departure Impression Primary Impression: Vomiting in adult Additional Impression: Hyperbilirubinemia Disposition: HOME, SELF-CARE Condition: Stable Departure-Patient Inst. Decision time for Depature: 14:00 Referrals: MICHAEL HUDSON DO (PCP/Family) Primary Care Physician Patient Instructions: Bilirubin Blood Level, Nausea and Vomiting, Adult ED Add. Discharge Instructions: Your symptoms are consistent with a viral illness, and likely will improve with time. Take the Zofran that was prescribed for you. If you have nausea on top o f that, we will prescribe Phenergan that you can take as a second line agent. Your bilirubin was 2.1 today which is higher than it should be. This is a lab that is telling you how the liver is doing. Please call your regular doctor for follow-up as they need to get this retested to see if it improves on its own, or if they can figure out what is causing it. Scripts Promethazine HCl (Promethazine Tablet) 25 Mg Tablet 25 MG PO Q8H PRN for NAUSEA/VOMITING for 5 Days, #15 TAB Prov: ERIC BENITES MD 07/24/22 Work/School Note: Work Release Form Date Seen in the Emergency Department: Jul 24, 2022 Return to Work: Jul 26, 2022 Restrictions: Return-No Vomiting(24hrs) ERIC BENITES MD Jul 24, 2022 12:51
[2022-07-24] MEDS ORDERED: ACETAMINOPHEN 500 MG TAB (TYLENOL) PO ONE (13:00)
[2022-07-24] MEDS ORDERED: ONDANSETRON 4 MG/2 ML (SDV) Z0FRAN IVP ONE (13:00)
[2022-07-24 13:01] LABS: BASOPHILS % (AUTO) 0 % (0-10); EOSINOPHILS % (AUTO) 0 % (0-10); HEMATOCRIT 37 % (35-52); HEMOGLOBIN 12.7 g/dL (11.5-16.0); LYMPHOCYTES # (AUTO) 1.1 10^3/uL (1.0-4.0); LYMPHOCYTES % (AUTO) 8 % (12-44); MEAN CORPUSCULAR HEMOGLOBIN 30 pg (25-34); MEAN CORPUSCULAR HGB CONC 34 g/dL (32-36); MEAN CORPUSCULAR VOLUME 87 fL (80-99); MEAN PLATELET VOLUME 11.4 fL (9.0-12.2); MONOCYTES # (AUTO) 0.9 10^3/uL (0.0-1.0); MONOCYTES % (AUTO) 7 % (0-12); NEUTROPHILS # (AUTO) 10.6 10^3/uL (1.8-7.8); NEUTROPHILS % (AUTO) 84 % (42-75); PLATELET COUNT 227 10^3/uL (130-400); WHITE BLOOD COUNT 12.6 10^3/uL (4.3-11.0)
[2022-07-24 13:25] LABS: POTASSIUM 3.5 MMOL/L (3.6-5.0)
[2022-07-24 13:26] LABS: CALCIUM 8.9 MG/DL (8.5-10.1)
[2022-07-24 13:27] LABS: TOTAL PROTEIN 7.7 GM/DL (6.4-8.2)
[2022-07-24 13:29] LABS: BILIRUBIN,TOTAL 2.1 MG/DL (0.1-1.0)
[2022-07-24 13:31] LABS: CREATININE SERUM 0.65 MG/DL (0.60-1.30)
[2022-07-24 13:34] LABS: MAGNESIUM 2.1 MG/DL (1.6-2.4)
[2022-07-24] MEDS ORDERED: PROM25TA14 PO (13:41)
--- NOTE | 2022-07-24 13:58 | Diagnostic Imaging Report ---
EXAMINATION: Chest radiograph, portable AP view. DATE: 07/24/2022 1:22 PM INDICATION: 42-year-old female, cough. History of atypical mycobacterial infection. COMPARISON: August 24, 2021. FINDINGS: Heart size and mediastinal contours are unchanged. There is no identified pneumothorax. There is redemonstrated opacification in the right upper lobe. There are also reticular nodular appearing opacities in the right and left midlung and lower lung zones. There is no identified new area of alveolar consolidation since the prior study. There is no large pleural effusion. IMPRESSION: 1. Redemonstrated bilateral reticulonodular opacities in opacification of the right upper lung with essentially unchanged in appearance since August 24, 2021. This may reflect chronic lung changes and sequela prior atypical mycobacterial infection as per provided history. 2. No radiographically apparent interval acute cardiopulmonary abnormality. Dictated by: Dictated on workstation # [id number]
[2022-07-24 14:02] VITALS: BP 94/53
== END 2022-07-24 14:02 | disposition home or self-care (01) ==
LOC: EDUNIT# 12:35 → ER 12:38
DX: R11.2 Nausea with vomiting, unspecified (principal); E80.6 Other disorders of bilirubin metabolism; D72.829 Elevated white blood cell count, unspecified; A31.9 Mycobacterial infection, unspecified
CPT/HCPCS: 36415; 71045; 80053; 83690; 83735; 85025; 86141

== ENCOUNTER 2022-09-13 00:31 | Emergency (ER) | payer MEDICARE, MEDICAID ==
[~2022-09-13] VITALS: Ht 167.7 cm; Wt 50.8 kg
[~2022-09-13 00:31] MED LIST changes: +PROM25TA14 PO
--- NOTE | 2022-09-13 01:08 | ED General ---
General Chief Complaint: Chest Wall Stated Complaint: COUGH/LUNG PAIN Nursing Triage Note: C/O WORSENED CHRONIC COUGH. REPORTS COUGH WORSE X2 DAYS. C/O RIGHT UPPER CHEST WALL PAIN FROM COUGHING. HX OF LUNG FIBROSIS. Source of Information: Patient History of Present Illness Date Seen by Provider: Sep 13, 2022 Time Seen by Provider: 00:55 Initial Comments PT ARRIVES VIA POV FROM HOME PT HAS A CHRONIC COUGH, PRODUCTIVE OF WHITE SPUTUM, WORSE FOR THE LAST 2-3 DAYS TONIGHT SHE BEGAN HAVING RIGHT UPPER CHEST PAIN WITH COUGHING NO SHORTNESS OF BREATH NO FEVER SHE HAS PULMONARY FIBROSIS, AND MYCOBACTERIUM AVIUM COMPLEX AND HAS BEEN ON TRIPLE THERAPY FOR THE LAST 6 MONTHS OF ZITHROMAX, RIFAMPIN, AND ETHAMBUTOL. SHE SEES DR. 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 SHE ALSO HAS LUPUS. SHE HAS NOT BEEN ON ANY MEDICATIONS FOR LUPUS. STATES SHE FREQUENTLY GETS PNEUMONIA--STATES "THEY CAN ONLY FIND IT ON AN XRAY" SHE HAS NOT TAKEN ANYTHING FOR HER COUGH AT ANY TIME. SHE HAS NOT TAKEN ANYTHING FOR PAIN PCP: DR. HUDSON Allergies and Home Medications Allergies Coded Allergies: morphine (Unverified Allergy, Unknown, 03/09/16) Patient Home Medication List Home Medication List Reviewed: Yes Aspirin (Aspirin EC) 81 Mg Tablet., 81 MG PO DAILY Prescribed by: MOR BENNETT on 08/17/20 1526 Benzonatate (Tessalon Perles) 100 Mg Capsule, 200 MG PO TID Prescribed by: HERO ERWIN on 09/13/22 013 Guaifenesin/Dextromethorphan (Mucinex Dm ER 1,200-60 mg Tab) 1,200 Mg-60 Mg Tbmp.12hr, 1 EACH PO BID Prescribed by: HERO ERWIN on 09/13/22 013 Naproxen (Naproxen) 500 Mg Tablet., 500 MG PO BID Prescribed by: HERO ERWIN on 09/13/22136 Prednisone (Prednisone) 20 Mg Tab, 40 MG PO DAILY Prescribed by: JOYCE VELASCO on 07/16/21 1623 Discontinued Medications Amoxicillin/Potassium Clav (Augmentin 875-125 Tablet) 1 Each Tablet, 1 EACH PO BID Discontinued Reason: No Longer Taking Prescribed by: MINERVA GROVES on 04/09/21 1441 Last Action: Discontinued Azithromycin (Azithromycin) 250 Mg Tablet, 250 MG PO DAILY Discontinued Reason: No Longer Taking Prescribed by: MOR BENNETT on 08/17/20 1526 Last Action: Discontinued Benzonatate (Tessalon Perles) 100 Mg Capsule, 200 MG PO TID PRN for COUGH Discontinued Reason: No Longer Taking Prescribed by: Kathy Swanson on 04/02/22 1740 Last Action: Discontinued Cefdinir (Cefdinir) 300 Mg Capsule, 300 MG PO BID Discontinued Reason: No Longer Taking Prescribed by: MOR BENNETT on 08/17/20 1526 Last Action: Discontinued Promethazine HCl (Promethazine Tablet) 25 Mg Tablet, 25 MG PO Q8H PRN for NAUSEA/VOMITING Discontinued Reason: No Longer Taking Prescribed by: ERIC BENITES on 07/24/22 1341 Last Action: Discontinued Review of Systems Review of Systems Constitutional: no symptoms reported EENTM: no symptoms reported Respiratory: see HPI Cardiovascular: see HPI Gastrointestinal: no symptoms reported Genitourinary: no symptoms reported Musculoskeletal: no symptoms reported Skin: no symptoms reported Psychiatric/Neurological: No Symptoms Reported Hematologic/Lymphatic: No Symptoms Reported Immunological/Allergic: no symptoms reported Past Yvgpndn-Swlfbw-Djngkn Hx Patient Social History Tobacco Use?: No Substance use?: No Alcohol Use?: No Pt feels they are or have been: No Immunizations Up To Date Tetanus Booster (TDap): More than 5yrs First/Initial COVID19 Vaccinat: YES Second COVID19 Vaccination Arpan: YES Third COVID19 Vaccination Date: YES Seasonal Allergies Seasonal Allergies: No Past Medical History Surgery/Hospitalization HX: RECURRENT PNEUMONIA, LUNG FIBROSIS, APPENDECTOMY, C SECTION, TUBAL AND PARTIAL HYSTO Surgeries: Yes (HYSTERCTOMY/OVARIES INTACT; X 1; BRONCHOSCOPY) Appendectomy, Section, Hysterectomy, Tubal Ligation Respiratory: Yes (MYCOBACTERIUM AVIUM COMPLEX. PULMONARY FIBROSIS. ) Pneumonia, COPD, Pulmonary Fibrosis Cardiac: No Neurological: No Reproductive Disorders: Yes Female Reproductive Disorders: Menstrual Problems [employer] History: Hysterectomy, Menopausal Genitourinary: No Gastrointestinal: No Musculoskeletal: No Endocrine: Yes Lupus HEENT: No Cancer: No Psychosocial: No Integumentary: No Blood Disorders: No Family Medical History No Pertinent Family Hx Physical Exam Vital Signs Vital Signs - First Documented 09/13/22 00:52 Temp 35.9 Pulse 63 Resp 16 B/P (MAP) 115/62 (79) Pulse Ox 99 O2 Delivery Room Air Capillary Refill : Less Than 3 Seconds Height, Weight, BMI Height: 5'6.00" Weight: 115lbs. oz. 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 Skin: Normal Color, Warm/Dry Progress/Results/Core Measures Suspected Sepsis SIRS Temperature: Pulse: 63 Respiratory Rate: 16 Blood Pressure 115 /62 Mean: 79 Results/Orders My Orders Orders - HERO ERWIN DO Chest Pa/Lat (2 View) (09/13/22 01:02) Benzonatate Capsule (Tessalon Perles) (09/13/22 01:45) Naproxen Tablet (Naprosyn Tablet) (09/13/22 01:45) Medications Given in ED Current Medications Medications Dose Ordered Sig/Jey Route Start Time Stop Time Status Last Admin Dose Admin Naproxen 500 mg ONCE ONCE PO 09/13/22 01:45 09/13/22 01:43 DC 09/13/22 01:42 500 MG Vital Signs/I&O 09/13/22 09/13/22 00:52 01:43 Temp 35.9 Pulse 63 66 Resp 16 16 B/P (MAP) 115/62 (79) 117/74 Pulse Ox 99 100 O2 Delivery Room Air Room Air Capillary Refill : Less Than 3 Seconds Blood Pressure Mean: 79 Progress Note : Progress Note VITALS STABLE, AFEBRILE NO HYPOXIA NO DYSPNEA COUGH STOPPED ON RETURN FROM XRAY DEPT DISCUSSED TEST RESULTS, ANTICIPATED COURSE, SYMPTOMATIC TREATMENT, MEDICATIONS, NEED FOR FOLLOW UP, AND RETURN PRECAUTIONS Diagnostic Imaging Comments CXR--PENDING RADIOLOGIST REVIEW -NO ACUTE PROCESS, CHRONIC LUNG CHANGES Reviewed: Reviewed by Me Departure Impression Primary Impression: Chronic cough Additional Impressions: Right-sided chest wall pain Pulmonary fibrosis Disposition: HOME, SELF-CARE Condition: Stable Departure-Patient Inst. Decision time for Depature: 01:34 Referrals: MICHAEL HUDSON DO (PCP/Family) Primary Care Physician Patient Instructions: Cough, Adult ED, Costochondritis (DC) Add. Discharge Instructions: CONTINUE YOUR REGULAR MEDICATIONS PRESCRIBED YOU MAY TAKE TYLENOL NEEDED FOR PAIN FOLLOW UP WITH DR. HUDSON OR YOUR SCHOOL CLEANER IN 3-4 DAYS IF NO BETTER All discharge instructions reviewed with patient and/or family. Voiced understanding. Scripts Naproxen (Naproxen) 500 Mg Tablet. 500 MG PO BID, #20 TAB Prov: HERO ERWIN DO 09/13/22 Guaifenesin/Dextromethorphan (Mucinex Dm ER 1,200-60 mg Tab) 1,200 Mg-60 Mg Tbmp.12hr 1 EACH PO BID, #20 EA Prov: HERO ERWIN DO 09/13/22 Benzonatate (TESSALON PERLES) 100 Mg Capsule 200 MG PO TID, #50 CAP Prov: HERO ERWIN DO 09/13/22 HERO ERWIN DO Sep 13, 2022 01:08
[2022-09-13] MEDS ORDERED: GUAI1TBM19 PO (01:37)
[2022-09-13] MEDS ORDERED: NAPR500T8 PO (01:37)
[2022-09-13] MEDS ORDERED: BENZ100C18 PO (01:37)
[2022-09-13 01:43] VITALS: BP 117/74
[2022-09-13] MEDS ORDERED: BENZONATATE 100 MG (TESSALON) CAPSULE PO SCH (01:45)
[2022-09-13] MEDS ORDERED: NAPROXEN 250 MG (NAPROSYN) TABLET PO ONE (01:45)
--- NOTE | 2022-09-13 06:19 | Diagnostic Imaging Report ---
EXAMINATION: Chest 2 view HISTORY: INCREASED CHRONIC COUGH, RIGHT CHEST PAIN WITH COUGHING COMPARISON: 05/08/2022 FINDINGS: Heart size and pulmonary vasculature are normal. Stable mild interstitial opacities throughout both lungs. No pleural effusion or pneumothorax. The osseous structures are intact. IMPRESSION: 1. No acute radiographic abnormality in the chest. 2. Stable mild patchy interstitial opacities within the lungs compared to 05/08/2022, likely related to chronic lung disease or scarring. 3. Agree with preliminary interpretation. Dictated by: Dictated on workstation # [id number]
== END 2022-09-13 01:42 | disposition home or self-care (01) ==
LOC: EDUNIT# 00:31 → ER 00:33
DX: J84.10 Pulmonary fibrosis, unspecified (principal); R07.89 Other chest pain; A31.2 Disseminated mycobacterium avium-intracellulare complex (DMAC); Z79.2 Long term (current) use of antibiotics
CPT/HCPCS: 71046

== ENCOUNTER 2022-12-10 19:33 | Emergency (ER) | payer MEDICARE, MEDICAID ==
[~2022-12-10] VITALS: Ht 167 cm; Wt 51.0 kg
[~2022-12-10 19:33] MED LIST changes: +GUAI1TBM19 PO; +NAPR500T8 PO
--- NOTE | 2022-12-10 19:58 | ED Lower Extremity ---
General Chief Complaint: Lower Extremity Stated Complaint: LEFT FOOT INJURY Source: patient Exam Limitations: no limitations (ERIC HAM) History of Present Illness Date Seen by Provider: Dec 10, 2022 Time Seen by Provider: 19:53 Initial Comments Patient is a 42-year-old female presents ED with left foot injury. Patient states she has pain to her fourth toe and left dorsum foot. Pain with movement. Bruising and swelling. This occurred yesterday after [place]. She may have stepped wrong as well. She was barefoot. She has been taken Tylenol without much improvement. No history of previous fracture. She is moving all extremities without difficulties. Patient denies nausea, vomiting, diarrhea, fever, chills, chest pain, shortness of breath, ankle pain (ERIC HAM) Allergies and Home Medications Allergies Coded Allergies: morphine (Unverified Allergy, Unknown, 03/09/16) Patient Home Medication List Home Medication List Reviewed: Yes (ERIC HAM) Aspirin (Aspirin EC) 81 Mg Tablet.dr, 81 MG PO DAILY Prescribed by: MOR BENNETT on 08/17/20 1526 Benzonatate (Tessalon Perles) 100 Mg Capsule, 200 MG PO TID Prescribed by: HERO ERWIN on 09/13/22136 Guaifenesin/Dextromethorphan (Mucinex Dm ER 1,200-60 mg Tab) 1,200 Mg-60 Mg Tbmp.12hr, 1 EACH PO BID Prescribed by: HERO ERWIN on 09/13/22136 Naproxen (Naproxen) 500 Mg Tablet.dr, 500 MG PO BID Prescribed by: HERO ERWIN on 09/13/22136 Prednisone (Prednisone) 20 Mg Tab, 40 MG PO DAILY Prescribed by: JOYCE VELASCO on 07/16/21 1623 Review of Systems Constitutional: No chills, No diaphoresis, No malaise, No weakness EENTM: No ear pain, No blurred vision, No double vision Respiratory: No cough, No dyspnea on exertion Cardiovascular: No chest pain Gastrointestinal: No abdominal pain, No diarrhea, No nausea, No vomiting Genitourinary: No decreased output, No discharge Musculoskeletal: No back pain; joint pain, joint swelling, muscle pain Skin: change in color; No change in hair/nails Psychiatric/Neurological: Denies Anxiety, Denies Depressed (ERIC HAM) Past Nxygyju-Pmsvos-Ssbdij Hx Immunizations Up To Date Tetanus Booster (TDap): More than 5yrs First/Initial COVID19 Vaccinat: YES Second COVID19 Vaccination Arpan: YES Third COVID19 Vaccination Date: YES (ERIC HAM) Seasonal Allergies Seasonal Allergies: No (ERIC HAM) Past Medical History Surgery/Hospitalization HX: RECURRENT PNEUMONIA, LUNG FIBROSIS, APPENDECTOMY, C SECTION, TUBAL AND PARTIAL HYSTO Surgeries: Yes (HYSTERCTOMY/OVARIES INTACT; X 1; BRONCHOSCOPY) Appendectomy, Section, Hysterectomy, Tubal Ligation Respiratory: Yes (MYCOBACTERIUM AVIUM COMPLEX. PULMONARY FIBROSIS. ) Pneumonia, COPD, Pulmonary Fibrosis Cardiac: No Neurological: No Reproductive Disorders: Yes Female Reproductive Disorders: Menstrual Problems [employer] History: Hysterectomy, Menopausal Genitourinary: No Gastrointestinal: No Musculoskeletal: No Endocrine: Yes Lupus HEENT: No Cancer: No Psychosocial: No Integumentary: No Blood Disorders: No (ERIC HAM) Family Medical History No Pertinent Family Hx (ERIC HAM) Physical Exam Vital Signs Vital Signs - First Documented 12/10/22 19:44 Temp 36.0 Pulse 69 Resp 16 B/P (MAP) 105/74 (84) Pulse Ox 99 O2 Delivery Room Air (PRATIBHA MICHAUD MD) Vital Signs Capillary Refill : (ERIC HAM) Height, Weight, BMI Height: 5'6.00" Weight: 115lbs. oz. 52.842568ft; 18.00 BMI Method:Stated General Appearance: WD/WN, no apparent distress HEENT: PERRL/EOMI, normal ENT inspection, TMs normal, pharynx normal Neck: non-tender, full range of motion, supple Cardiovascular: regular rate, rhythm, no edema, no gallop, no JVD Respiratory: chest non-tender, lungs clear, normal breath sounds, no respiratory distress, no accessory muscle use Gastrointestinal: normal bowel sounds, non tender, soft, no organomegaly Back: normal inspection, no CVA tenderness Hips: bilateral hip non-tender, bilateral hip normal inspection, bilateral hip no evidence of injury Legs: bilateral leg non-tender, bilateral leg normal inspection, bilateral leg normal range of motion Knees: bilateral knee non-tender, bilateral knee normal inspection, bilateral knee normal range of motion Ankles: bilateral ankle non-tender, bilateral ankle normal inspection, bilateral ankle normal range of motion Feet: left foot normal range of motion, left foot pain, left foot soft tissue tenderness (Tenderness to palpate fourth digit proximal. Swelling noted. 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 Patient with pain to her third fourth proximal toes. Bruising and swelling noted. Neurovascular intact. Pain with range of motion of the 3rd and 4th toe. X-ray was obtained which did not note any acute fracture. She refused anything for pain. Recommend she use better foot wear with support. Discussed postop shoe. Patient able to ambulate. Ice and anti-inflammatories alternating with Tylenol. Orthopedic follow-up in 7 to 10 days for reevaluation. If any worsening symptoms return back to ED for further evaluation. (ERIC HAM) Impression Primary Impression: Foot sprain Disposition: HOME, SELF-CARE Condition: Stable Departure-Patient Inst. Decision time for Depature: 21:11 (ERIC HAM) Referrals: MICHAEL HUDSON DO (PCP/Family) Primary Care Physician JUANA ZAVALA MD Patient Instructions: Foot Sprain (DC) Add. Discharge Instructions: Recommend ice, alternating Tylenol and ibuprofen. Recommend rest. If increasing pain over the next 1 to 2 weeks orthopedic outpatient follow-up. All discharge instructions reviewed with patient and/or family. Voiced understanding. ATTENDING PHYSICIAN NOTE: I was physically present as attending physician in the emergency department during the care of this patient, but I was not directly involved in the decision making or delivery of care for this patient. (PRATIBHA MICHAUD MD) ERIC HAM Dec 10, 2022 19:58 PRATIBHA MICHAUD MD Dec 11, 2022 03:34
--- NOTE | 2022-12-10 21:08 | Diagnostic Imaging Report ---
INDICATION: 42-year-old female with bruising noted on the top of the left foot along the 3rd and 5th metatarsals presents with pain COMPARISONS: None FINDINGS: 3 views of the left foot showed no evidence of new or healing fractures, bony destruction or remodeling. IMPRESSION: No fracture or subluxation seen. Dictated by: Dictated on workstation # [id number]
[2022-12-10 21:14] VITALS: BP 109/69
== END 2022-12-10 21:14 | disposition home or self-care (01) ==
LOC: EDUNIT# 19:33 → ER 19:36
DX: S93.602A Unspecified sprain of left foot, initial encounter (principal); W22.09XA Striking against other stationary object, initial encounter
CPT/HCPCS: 73630

== ENCOUNTER → 2023-01-22 | Outpatient (CLI) | payer MEDICARE, MEDICAID ==
--- NOTE | 2023-01-22 13:34 | Diagnostic Imaging Report ---
Examination: Right ribs two views. HISTORY: Rib pain. COMPARISON: 09/13/2022. FINDINGS: There are unchanged interstitial opacities in the right lung. No pleural effusion or pneumothorax. No rib fracture is seen. IMPRESSION: 1. No right-sided rib fracture seen. 2. Unchanged interstitial opacities in the right lung. Dictated by: Dictated on workstation # [id number]
--- NOTE | 2023-01-22 13:35 | Diagnostic Imaging Report ---
EXAMINATION: Chest 2 view HISTORY: Pulmonary fibrosis, cough COMPARISON: 09/13/2022 FINDINGS: There are interstitial opacities throughout both lungs. No pleural effusion or pneumothorax. Heart size is normal. No change from prior exam. IMPRESSION: 1. Unchanged interstitial opacities in both lungs with history of fibrosis. Dictated by: Dictated on workstation # [id number]
== END ==
LOC: RAD 13:05
PROVIDERS: ATTEND Family Medicine
DX: R07.81 Pleurodynia (principal); R91.8 Other nonspecific abnormal finding of lung field; R05.9 Cough, unspecified
CPT/HCPCS: 71046; 71100